=== PATIENT | male | born 1945 | race Caucasian/White ===

== ENCOUNTER 2020-11-24 12:33 | Outpatient (REF) | payer MEDICARE, SELFPAY ==
[2020-11-24 13:14] LABS: Hematocrit 46.7 % (42-52); Hemoglobin 15.1 g/dl (14.0-18.0); Mean Corpuscular HGB Conc 32.3 g/dl (31.0-36.0); Mean Corpuscular Hemoglobin 30.4 pg (27.0-33.0); Mean Corpuscular Volume 94.2 fL (80-98); Mean Platelet Volume 9.1 fL (9.4-12.4); Platelet Count 320 X10*3/uL (160-400); Red Blood Count 4.96 X10*6/uL (4.60-5.80); Red Cell Distribution Width 12.4 % (11.0-16.0); White Blood Count 10.6 X10*3/uL (4.8-10.8)
[2020-11-24 13:49] LABS: Alanine Aminotransferase 16 U/L (0-40); Alkaline Phosphatase 111 U/L (39-117); Anion Gap 15 (12-20); Aspartate Amino Transferase 20 U/L (5-37); Bilirubin Total 0.6 mg/dL (0.0-1.0); Blood Urea Nitrogen 24 mg/dL (9-16); Calcium 9.6 mg/dL (8.4-10.2); Carbon Dioxide 28 mmol/L (22-29); Chloride 105 mmol/L (96-108); Cholesterol 132 mg/dL; Estimated Glomerular Filt Rate 48; Glucose Random 124 mg/dL (60-115); HDL Cholesterol 29 mg/dL; LDL Cholesterol Calculated 45 mg/dl; Potassium 4.7 mmol/L (3.3-5.1); Sodium 143 mmol/L (135-145); Total Protein 7.1 g/dL (6.5-8.0); Triglycerides 292 mg/dL
== END 2020-11-24 12:34 | disposition home or self-care (01) ==
LOC: HO.LAB 12:33
PROVIDERS: PCP Internal Medicine Medical Oncology; Visit Provider Nurse Practitioner Adult Health
DX: I25.10 Atherosclerotic heart disease of native coronary artery without angina pectoris (principal); N18.30 Chronic kidney disease, stage 3 unspecified
CPT/HCPCS: 36415; 80053; 80061; 85027

== ENCOUNTER 2021-07-29 14:35 | Emergency (ER) | payer MEDICARE, SELFPAY ==
[2021-07-29 14:43] VITALS: BP 119/57; BP 135/78; PULSE 93; PULSE 99; RESP 20; TEMP 37; O2SAT 100; O2SAT 97; BMI 19.3
[2021-07-29 14:55] VITALS: BP 132/67; PULSE 97; RESP 18; TEMP 36.6; O2SAT 98
--- NOTE | 2021-07-29 15:06 | ED_ITS ---
HPI - Male Genitourinary General Chief complaint: Urogenital-Male Stated complaint: ?uti Time Seen by Provider: 07/29/21 14:58 Source: patient and EMS Mode of arrival: EMS Limitations: no limitations History of Present Illness HPI Narrative: 68-year-old male with a history of hypertension, hyperlipidemia, BPH, who presents to the ER from [facility] via EMS with acute onset of josh blood coming from his penis that started this morning. He denies any trauma. He states when he went to go urinate there was bright red blood coming from his penis and it hurt to urinate. He is not on any blood thinners, but he is on a baby aspirin. This is never happened to him before. He follows with urologist in [place]. He has required catheters in the past but denies any recent difficulty starting his stream or emptying his bladder. He fever or chills, no nausea or vomiting. MD Complaint: dysuria and other (Bleeding from penis) Onset (ago): hour(s) Duration: intermittent Location: penis Severity: moderate Quality: burning Relieving factors: none Exacerbating factors: none Associated symptoms: Reports blood in urine and dysuria Related Data Previous Rx's Medication Instructions Recorded cefuroxime axetil 250 mg tablet 250 mg PO BID 7 Days #14 tab 07/29/21 mupirocin 2 % topical ointment 1 appl TOPICAL BID #15 g 07/29/21 Allergies Allergy/AdvReac Type Severity Reaction Status Date / Time No Known Allergies Allergy Verified 07/29/21 14:57 Review of Systems Review of Systems: Constitutional: No Fever, No Chills ENT/Mouth: No sore throat, No Rhinorrhea, No Swallowing Difficulty Cardiovascular: No Chest Pain, No SOB, No Orthopnea, No Edema Respiratory: No Cough, No Sputum, No Wheezing, No dyspnea Gastrointestinal: No Nausea, No Vomiting, No Diarrhea, No abdominal Pain, No Hematochezia, No Melena Genitourinary: + Dysuria, No Urinary Frequency, + Hematuria, No testicular pain Musculoskeletal: No joint pain, No Myalgias Skin: No Skin Lesions, No rash Neuro: No Weakness, No Numbness, No Dizziness, No Headache Psych: No Anxiety/Panic, No Depression Heme/Lymph: No Bruising, No Lymphadenopathy Endocrine: No Polyuria, No Polydipsia PMFSH Social History Social History Alcohol intake: never Patient Tobacco Use Status: Never used Tobacco Use of substances other than those prescribed or required for medical reasons: No Advance Directives: No Advance Directives Information Provided: No Physical Exam Vital Signs: Vital Signs: Last Vital Signs Temp 98.6 F 07/29/21 17:49 Pulse 89 07/29/21 17:49 Resp 18 07/29/21 17:49 BP 119/63 07/29/21 17:49 Pulse Ox 98 07/29/21 17:49 Body Mass Index 19.3 Appearance: Alert. Oriented X3. No acute distress. Eyes: Pupils equal, round and reactive to light. ENT: Pharynx normal. Poor dentition Neck: Normal inspection. Neck supple. CVS: Normal heart rate and rhythm. Pulses normal. Respiratory: No respiratory distress. Breath sounds normal. Abdomen: Soft and nontender. +BS x4 Genitalia: dried blood on penile glans, yellow crusting of the base of the glans with friable tissue, circumsized with some swelling, blood expressed from meatus, no testicular tenderness, no palpable mass or hernia. Skin: Skin warm and dry. Normal skin color. Normal skin turgor. No rashes. Extremities: No lower extremity edema. Neuro: Oriented X 3. No motor deficit. No sensory deficit. Course Course Course Narrative: 68-year-old male with a history of HTN, HLD, BPH presenting from [facility] with report of new onset gross hematuria that started today. This is associated with dysuria. No fever, chills, nausea, vomiting. Will get urinalysis, labs, coags, and postvoid residual bladder scan. He is nontoxic and afebrile. Reevaluation(s) Reevaluation #1: Patient able to void with about 200 cc left in the bladder. He is on finasteride at baseline. His urine is red without clots. His H&H are normal with a normal INR and PT. his renal function is normal. His urinalysis is showing evidence of infection with hematuria. This is most likely the cause of his hematuria. Will give a dose of IV Rocephin now and plan to discharge home on oral antibiotics. H Reevaluation #2: Patient completed Rocephin and was given a L of IV fluids. Stable for discharge home with p.o. Ceftin for 1 week. He will follow-up with his outpatient urologist. MARY - Male Genitourinary Lab Data Result diagrams: 07/29/21 16:33 07/29/21 16:33 Labs: Lab Results 07/29/21 07/29/21 07/29/21 Range/Units 15:44 16:33 16:33 WBC 7.6 (4.8-10.8) X10*3/uL RBC 4.61 (4.60-5.80) X10*6/uL Hgb 14.2 (14.0-18.0) g/dl Hct 43.2 (42-52) % MCV 93.7 (80-98) fL MCH 30.8 (27.0-33.0) pg MCHC 32.9 (31.0-36.0) g/dl RDW 12.3 (11.0-16.0) % Plt Count 262 (160-400) X10*3/uL MPV 8.8 L (9.4-12.4) fL Immature Gran % (Auto) 0.2 (0.0-0.4) % Neut % (Auto) 78.4 H (45-73) % Lymph % (Auto) 11.2 L (20-40) % [place] % (Auto) 8.4 (2-11) % Eos % (Auto) 1.4 (0-4) % Baso % (Auto) 0.4 (0-2) % Lymph # (Auto) 0.9 L (1.2-4.9) X10*3/uL [place] # (Auto) 0.7 (0.1-1.2) X10*3/uL Eos # (Auto) 0.1 (0.0-0.4) X10*3/uL Baso # (Auto) 0.0 (0.0-0.2) X10*3/uL Abs Immat Gran (auto) 0.02 (0.00-0.03) X10*3/uL Absolute Neuts (auto) 6.3 (2.0-8.3) X10*3/uL Absolute Nucleated RBC 0.000 (0.0-0.012) X10*3/uL Nucleated RBC % (auto) 0.0 (0.0-0.2) /100WBC Smear Tech's Comments VERIFIED PT (9.9-13.0) SEC INR (0.9-1.1) APTT (24.1-38.0) SEC Sodium 144 (135-145) mmol/L Potassium 4.8 (3.3-5.1) mmol/L Chloride 110 H (96-108) mmol/L Carbon Dioxide 25 (22-29) mmol/L Anion Gap 14 (12-20) BUN 24 H (9-16) mg/dL Creatinine 1.35 (0.5-1.4) mg/dL Estim Creat Clear Calc 34.7 Estimated GFR 51 Random Glucose 104 (60-115) mg/dL Calcium 9.0 D (8.4-10.2) mg/dL Urine Color DK YELLOW Urine Appearance TURBID Urine pH 5.5 (5.0-8.0) Ur Specific [place] 1.025 (1.005-1.025) Urine Protein 1+ H (NEG-TRACE) MG/DL Urine Glucose (UA) NEG (NEG) MG/DL Urine Ketones NEG (NEG) MG/DL Urine Blood 3+ H (NEG) Urine Nitrite NEG (NEG) Ur Leukocyte Esterase 2+ H (NEG) Urine RBC TNTC H (0) /HPF Urine WBC 30-49 H (0-4) /HPF Ur Squamous Epith Cells TRACE /LPF Urine Bacteria TRACE /LPF 07/29/21 Range/Units 17:11 WBC (4.8-10.8) X10*3/uL RBC (4.60-5.80) X10*6/uL Hgb (14.0-18.0) g/dl Hct (42-52) % MCV (80-98) fL MCH (27.0-33.0) pg MCHC (31.0-36.0) g/dl RDW (11.0-16.0) % Plt Count (160-400) X10*3/uL MPV (9.4-12.4) fL Immature Gran % (Auto) (0.0-0.4) % Neut % (Auto) (45-73) % Lymph % (Auto) (20-40) % [place] % (Auto) (2-11) % Eos % (Auto) (0-4) % Baso % (Auto) (0-2) % Lymph # (Auto) (1.2-4.9) X10*3/uL [place] # (Auto) (0.1-1.2) X10*3/uL Eos # (Auto) (0.0-0.4) X10*3/uL Baso # (Auto) (0.0-0.2) X10*3/uL Abs Immat Gran (auto) (0.00-0.03) X10*3/uL Absolute Neuts (auto) (2.0-8.3) X10*3/uL Absolute Nucleated RBC (0.0-0.012) X10*3/uL Nucleated RBC % (auto) (0.0-0.2) /100WBC Smear Tech's Comments PT 12.5 (9.9-13.0) SEC INR 1.1 (0.9-1.1) APTT 39.9 H (24.1-38.0) SEC Sodium (135-145) mmol/L Potassium (3.3-5.1) mmol/L Chloride (96-108) mmol/L Carbon Dioxide (22-29) mmol/L Anion Gap (12-20) BUN (9-16) mg/dL Creatinine (0.5-1.4) mg/dL Estim Creat Clear Calc Estimated GFR Random Glucose (60-115) mg/dL Calcium (8.4-10.2) mg/dL Urine Color Urine Appearance Urine pH (5.0-8.0) Ur Specific [place] (1.005-1.025) Urine Protein (NEG-TRACE) MG/DL Urine Glucose (UA) (NEG) MG/DL Urine Ketones (NEG) MG/DL Urine Blood (NEG) Urine Nitrite (NEG) Ur Leukocyte Esterase (NEG) Urine RBC (0) /HPF Urine WBC (0-4) /HPF Ur Squamous Epith Cells /LPF Urine Bacteria /LPF Critical Care Time Critical Care Time Critical Care Time: No Discharge Plan Discharge Clinical Impression: Urinary tract infection, Hematuria Patient Disposition: Home, Self-Care Instructions: Urinary Tract Infection in Men (ED), Hematuria (ED) Additional Instructions: Your urinalysis showed evidence of bladder infection. That is what is causing the bleeding from her bladder and penis. This will improve with treatment of antibiotics. Your given her 1st dose of IV antibiotics in the ER today. Start taking the prescribed antibiotics 1st thing tomorrow morning. Increase her oral hydration, drink plenty of water. Follow-up with your urology doctor next week. If you develop new or worsening symptoms call 911 or come back to the ER for further evaluation. Prescriptions: New cefuroxime axetil 250 mg tablet 250 mg PO BID 7 Days Qty: 14 RF: 0 mupirocin 2 % ointment 1 appl topical BID Qty: 15 RF: 0
[2021-07-29 15:56] LABS: Appearance Urine TURBID; Color Urine DK YELLOW; Glucose Urine UA NEG (NEG); Leukocyte Esterase Urine 2+ (NEG); Nitrite Urine NEG (NEG); PH 5.5 (5.0-8.0); Specific Gravity - Urine 1.025 (1.005-1.025); UACC Culture Trigger YES; Urine Blood 3+ (NEG); Urine Ketones NEG (NEG); Urine Protein 1+ MG/DL (NEG-TRACE)
[2021-07-29 16:02] LABS: RBC Urine TNTC /HPF (0)
[2021-07-29 16:03] LABS: Bacteria Urine TRACE /LPF; Squamous Epithelial Cell Urine TRACE /LPF; WBC Urine 30-49 /HPF (0-4)
[2021-07-29 16:42] LABS: Basophils Percent Auto 0.4 % (0-2); Hematocrit 43.2 % (42-52); Hemoglobin 14.2 g/dl (14.0-18.0); Imm Gran Abs Auto 0.02 X10*3/uL (0.00-0.03); Imm Gran Pct Auto 0.2 % (0.0-0.4); MANUAL DIFF FLAG SCAN; Mean Corpuscular HGB Conc 32.9 g/dl (31.0-36.0); Mean Platelet Volume 8.8 fL (9.4-12.4); Neutrophils Absolute Auto 6.3 X10*3/uL (2.0-8.3); PLT CLUMP 1; SCAN SMEAR FLAG 1
[2021-07-29 16:44] LABS: Eosinophils Absolute Auto 0.1 X10*3/uL (0.0-0.4); Eosinophils Percent Auto 1.4 % (0-4); Lymphocytes Absolute Auto 0.9 X10*3/uL (1.2-4.9); Lymphocytes Percent Auto 11.2 % (20-40); Mean Corpuscular Hemoglobin 30.8 pg (27.0-33.0); Mean Corpuscular Volume 93.7 fL (80-98); Monocytes Absolute Auto 0.7 X10*3/uL (0.1-1.2); Monocytes Percent Auto 8.4 % (2-11); Neutrophils Percent Auto 78.4 % (45-73); Platelet Count 262 X10*3/uL (160-400); Red Blood Count 4.61 X10*6/uL (4.60-5.80); Red Cell Distribution Width 12.3 % (11.0-16.0)
[2021-07-29 16:59] LABS: Anion Gap 14 (12-20); Blood Urea Nitrogen 24 mg/dL (9-16); Carbon Dioxide 25 mmol/L (22-29); Chloride 110 mmol/L (96-108); Creatinine Clr Calc Pharmacy 34.7; Estimated Glomerular Filt Rate 51; Glucose Random 104 mg/dL (60-115); Potassium 4.8 mmol/L (3.3-5.1); Sodium 144 mmol/L (135-145)
[2021-07-29 17:07] LABS: White Blood Count 7.6 X10*3/uL (4.8-10.8)
[2021-07-29 17:08] LABS: SLIDE REVIEW VERIFIED
[2021-07-29] MEDS: 0.9 % Sodium Chloride 1,000 ML 999 ML IVCONT (17:23)
[2021-07-29] MEDS: cefTRIAXone sodium 1 GM in 0.9 % Sodium Chloride 50 ML IV (17:23)
[2021-07-29 17:24] LABS: INTERNATIONAL NORM RATIO 1.1 (0.9-1.1); Prothrombin Time 12.5 SEC (9.9-13.0)
[2021-07-29 17:26] LABS: Partial Thromboplastin Time 39.9 SEC (24.1-38.0)
[2021-07-29 17:49] VITALS: BP 119/63; PULSE 89; RESP 18; TEMP 37; O2SAT 98
== END 2021-07-29 19:00 | disposition home or self-care (01) ==
PROVIDERS: Physician Assistant; Emergency Provider Emergency Medicine; PCP Internal Medicine Medical Oncology
DX: N39.0 Urinary tract infection, site not specified (principal); R31.9 Hematuria, unspecified; Z79.899 Other long term (current) drug therapy
CPT/HCPCS: 36415; 80048; 81001; 85025; 85610; 85730; 87086; 87088; 87186; 96361; 96365; 99284; J0696

== ENCOUNTER 2023-04-09 19:49 | Emergency (ER) | payer MEDICARE, SELFPAY ==
[2023-04-09 19:52] VITALS: BP 128/84; PULSE 96; O2SAT 99
[2023-04-09 20:05] VITALS: BP 128/84; BP 170/86; PULSE 88; PULSE 96; RESP 13; TEMP 36.7; O2SAT 100; O2SAT 99; BMI 20.5
--- NOTE | 2023-04-09 20:27 | ED.EXTPRO ---
HPI - Extremity Problem General Chief complaint: Extremity Problem Stated complaint: leg pain/ numb Time Seen by Provider: 04/09/23 20:23 Source: patient Mode of arrival: EMS Limitations: no limitations History of Present Illness HPI Narrative: Patient 78 years old with history of hypertension hyperlipidemia BPH coronary disease status post CABG, peripheral vascular disease on aspirin comes here for right lower extremity pain which started an hour ago prior to arrival. Patient does have pain off and on her right lower extremity for last 1 year which gets worse on ambulation but resolves after resting and applying hot blanket. similar pain happened about 1 week ago but went away today at around 1900 patient walked out of the car walked back as started having pain in right leg which continued Memo came to the ER had difficulty in walking did not feel his right foot and felt weak. On arrival patient extremity was slightly colder and pale below mid [place] feels his right lower leg numb. Able to feel light touch able to move his foot but feel very weak Related Data Home Medications Medication Instructions Recorded Confirmed atorvastatin 80 mg tablet 80 mg PO DAILY 04/09/23 04/09/23 finasteride 5 mg tablet 5 mg PO DAILY 04/09/23 04/09/23 metoprolol succinate 100 mg 100 mg PO DAILY 04/09/23 04/09/23 tablet,extended release 24 hr Previous Rx's Medication Instructions Recorded cefuroxime axetil 250 mg tablet 250 mg PO BID 7 days #14 tabs 07/29/21 Allergies Allergy/AdvReac Type Severity Reaction Status Date / Time No Known Allergies Allergy Verified 07/29/21 14:57 Review of Systems Review of Systems: Yes all other systems are reviewed and are negative [facility] Social History Social History Alcohol intake: never Patient Tobacco Use Status: Never used Tobacco Smoked in Last 30 Days: No Use of substances other than those prescribed or required for medical reasons: No Advance Directives: No Advance Directives Information Provided: No Physical Exam Vital Signs: Vital Signs: Last Vital Signs Temp 98.1 F 04/09/23 20:05 Pulse 82 04/09/23 22:29 Resp 18 04/09/23 22:29 BP 143/73 H 04/09/23 22:29 Pulse Ox 98 04/09/23 22:29 O2 Del Method Room Air 04/09/23 20:05 BMI result Body Mass Index 20.5 Appearance: Alert. Oriented X3. No acute distress. Eyes: PERRLA, No Nystagmus ENT: Pharynx normal. Oral Mucosa moist Neck: Normal inspection. Neck supple. CVS: Normal heart rate and rhythm. No murmur or rub Respiratory: No respiratory distress. Equal air entry bilateral, no wheezing/rales/rhonchi Abdomen: Soft and nontender. Bowel sounds are present, no mass palpable, no CVA tenderness Skin: Skin warm and dry. Normal skin color. Normal skin turgor. Extremities: No lower extremity edema. No calf tenderness, right lower extremity pale and colder below mid [place] no pulse palpable from right common femoral all the way to popliteal able to plantar flex his right foot with minimal toe movements Neuro: Oriented X 3. Decrease movements and sensation right foot.No cerebellar signs , cranial nerves II-XII intact Medications Administered Discontinued Medications Generic Name Dose Route Start Last Admin Trade Name Freq PRN Reason Stop Dose Admin Heparin Sodium (Porcine) 4,500 unit 04/09/23 20:28 04/09/23 21:07 Heparin Sodium,Porcine 5,000 Unit/Ml Vial IVPUSH 04/09/23 20:29 4,500 unit ONCE ONE Administration Heparin Sodium/Sodium Chloride 25,000 unit in 250 mls @ 0 mls/hr 04/09/23 20:30 04/09/23 21:00 Heparin Sodium,Porcine/1/2ns IVCONT 14 units/kg/hr .Q0M ESTEE 8.05 mls/hr Administration Protocol Per Protocol Medical Decision Making Medical Decision Making [facility] Narrative: 2054 bedside arterial ultrasound was done which showed no blood flow from right common femoral artery, good blood flow in the iliac artery. Case discussed Dr. Iglesias vascular surgeon vascular services not available Dr Frazier vascular surgeon at [facility] accepted the patient for transfer to [facility] ER 22:20 EMS here to take the patient right leg is cold and pale from knee down. Able to dorsi and plantar flex Lab Data [facility] Lab Attestation statement: I reviewed the patient's lab results. 04/09/23 20:35 04/09/23 20:35 Labs: Lab Results 04/09/23 04/09/23 04/09/23 Range/Units 20:35 20:35 20:35 WBC 8.2 (4.8-10.8) X10*3/uL RBC 5.43 (4.60-5.80) X10*6/uL Hgb 15.6 (14.0-18.0) g/dl Hct 48.2 (42.0-52.0) % MCV 88.8 (80.0-98.0) fL MCH 28.7 (27.0-33.0) pg MCHC 32.4 (31.0-36.0) g/dl RDW 13.4 (11.0-16.0) % Plt Count 296 (160-400) X10*3/uL MPV 8.4 L (9.4-12.4) fL Immature Gran % (Auto) 0.2 (0.0-0.4) % Neut % (Auto) 85.3 H (45-73) % Lymph % (Auto) 7.7 L (20-40) % [place] % (Auto) 6.1 (2-11) % Eos % (Auto) 0.5 (0-4) % Baso % (Auto) 0.2 (0-2) % Lymph # (Auto) 0.6 L (1.2-4.9) X10*3/uL [place] # (Auto) 0.5 (0.1-1.2) X10*3/uL Eos # (Auto) 0.0 (0.0-0.4) X10*3/uL Baso # (Auto) 0.0 (0.0-0.2) X10*3/uL Abs Immat Gran (auto) 0.02 (0.00-0.03) X10*3/uL Absolute Neuts (auto) 7.0 (2.0-8.3) x10*3/uL Absolute Nucleated RBC 0.000 (0.0-0.012) X10*3/uL Nucleated RBC % (auto) 0.0 (0.0-0.2) /100WBC PT 11.5 (10.0-13.1) SEC INR 1.0 (0.9-1.1) APTT 37.9 H (26.0-36.4) SEC Sodium 140 (135-145) mmol/L Potassium 4.4 (3.3-5.1) mmol/L Chloride 104 (96-108) mmol/L Carbon Dioxide 24 (22-29) mmol/L Anion Gap 16 (12-20) BUN 21 H (9-16) mg/dL Creatinine 1.51 H (0.5-1.4) mg/dL Estim Creat Clear Calc 31.7 Estimated GFR 45 Random Glucose 129 H (60-115) mg/dL Calcium 9.9 D (8.4-10.2) mg/dL Total Bilirubin 0.4 (0.0-1.0) mg/dL AST 13 (5-37) U/L ALT 9 (0-40) U/L Alkaline Phosphatase 114 (39-117) U/L Total Protein 8.3 H (6.5-8.0) g/dL Albumin 4.1 (3.5-5.0) g/dL COVID-19 (LEIGHA) (Negative) COVID-19 Clin Com 04/09/23 Range/Units 21:15 WBC (4.8-10.8) X10*3/uL RBC (4.60-5.80) X10*6/uL Hgb (14.0-18.0) g/dl Hct (42.0-52.0) % MCV (80.0-98.0) fL MCH (27.0-33.0) pg MCHC (31.0-36.0) g/dl RDW (11.0-16.0) % Plt Count (160-400) X10*3/uL MPV (9.4-12.4) fL Immature Gran % (Auto) (0.0-0.4) % Neut % (Auto) (45-73) % Lymph % (Auto) (20-40) % [place] % (Auto) (2-11) % Eos % (Auto) (0-4) % Baso % (Auto) (0-2) % Lymph # (Auto) (1.2-4.9) X10*3/uL [place] # (Auto) (0.1-1.2) X10*3/uL Eos # (Auto) (0.0-0.4) X10*3/uL Baso # (Auto) (0.0-0.2) X10*3/uL Abs Immat Gran (auto) (0.00-0.03) X10*3/uL Absolute Neuts (auto) (2.0-8.3) x10*3/uL Absolute Nucleated RBC (0.0-0.012) X10*3/uL Nucleated RBC % (auto) (0.0-0.2) /100WBC PT (10.0-13.1) SEC INR (0.9-1.1) APTT (26.0-36.4) SEC Sodium (135-145) mmol/L Potassium (3.3-5.1) mmol/L Chloride (96-108) mmol/L Carbon Dioxide (22-29) mmol/L Anion Gap (12-20) BUN (9-16) mg/dL Creatinine (0.5-1.4) mg/dL Estim Creat Clear Calc Estimated GFR Random Glucose (60-115) mg/dL Calcium (8.4-10.2) mg/dL Total Bilirubin (0.0-1.0) mg/dL AST (5-37) U/L ALT (0-40) U/L Alkaline Phosphatase (39-117) U/L Total Protein (6.5-8.0) g/dL Albumin (3.5-5.0) g/dL COVID-19 (LEIGHA) Negative (Negative) COVID-19 Clin Com See Note Critical Care Time Critical Care Time Critical Care Time: Yes Total Critical Care Time: 65 Attestation: The patient was critically ill with a high probability of imminent or life threatening deterioration. I spent greater than 70 minutes of discontinuous time evaluating the patient,delivering critical care at the bedside, discussing and evaluating pertinent data with consultants. Critical care time does not include time spent performing separately billable procedures or teaching. Total time spent performing critical care was 65 minutes. Discharge Plan Discharge Clinical Impression: Acute occlusion of artery of lower extremity Patient Disposition: Xfer [facility] Transfer Details: Acute right common femoral artery occlusion Dr. Frazier [facility] ER Prescriptions: No Action cefuroxime axetil 250 mg tablet 250 mg PO BID 7 Days Qty: 14 0RF atorvastatin 80 mg tablet 80 mg PO DAILY metoprolol succinate 100 mg tablet extended release 24 hr 100 mg PO DAILY finasteride 5 mg tablet 5 mg PO DAILY Interventions: Acute Care Transfer Worksheet (ED) Last Done: 04/09/23 22:30 Discharge Date/Time: 04/09/23 22:31
--- NOTE | 2023-04-09 21:42 | PC.NURSE ---
Contacted [facility], spoke with [facility] nurse. informed of plan to send pt to [facility].
--- NOTE | 2023-04-09 21:50 | PC.NURSE ---
Assumed care of pt approx 1999. on arrival, pt transfered to [facility] by EMS without complications. pt sts has been having intermittent bilat leg pain x 1 year, with previous history 6 years ago of cleanout of my legs , with no risidual leg pain or issues until last year. Pt has been elevating limb, applying heat with relief when pain ocurrs, however states he ambulated to car to start it and had increased pain today. Pt ss went back inside to elevate leg and apply heat, but with no relief. Called 911 to come in. On assessment, RLL cool to touch from knee down, no pedal pulses felt or ascultated with doppler on R, + on L. Pt unable to move toes, does have reduced muscular ability with R foot. MD notified for assesment. IV established, orders placed for labs. Imaging noted lack of aterial flow on R femoral artery, Heparin started, plan to transfer pt to [facility]. Pt remains lying on stretcher, c/o tk nto RLE, no other complaints at this time.
[2023-04-09 22:29] VITALS: BP 143/73; PULSE 82; RESP 18; O2SAT 98
== END 2023-04-09 22:31 | disposition short-term general hospital (02) ==
PROVIDERS: Emergency Provider Internal Medicine
DX: I74.3 Embolism and thrombosis of arteries of the lower extremities (principal); M79.604 Pain in right leg; Z20.822 Contact with and (suspected) exposure to COVID-19; I10 Essential (primary) hypertension; E78.5 Hyperlipidemia, unspecified; Z95.1 Presence of aortocoronary bypass graft; Z79.899 Other long term (current) drug therapy
CPT/HCPCS: 36415; 80053; 85025; 85610; 85730; 87635; 93926; 96365; 96375; 99285; J1643

== ENCOUNTER 2023-06-20 10:40 | Outpatient (REF) | payer MEDICARE, SELFPAY ==
[2023-06-20 13:18] LABS: MANUAL DIFF FLAG NO
[2023-06-20 13:22] LABS: Basophils Percent Auto 0.3 % (0-2); Eosinophils Absolute Auto 0.1 X10*3/uL (0.0-0.4); Eosinophils Percent Auto 2.1 % (0-4); Hematocrit 38.3 % (42.0-52.0); Hemoglobin 11.9 g/dl (14.0-18.0); Imm Gran Abs Auto 0.02 X10*3/uL (0.00-0.03); Imm Gran Pct Auto 0.3 % (0.0-0.4); Lymphocytes Percent Auto 15.7 % (20-40); Mean Corpuscular HGB Conc 31.1 g/dl (31.0-36.0); Mean Corpuscular Volume 93.4 fL (80.0-98.0); Mean Platelet Volume 8.9 fL (9.4-12.4); Monocytes Absolute Auto 0.4 X10*3/uL (0.1-1.2); Neutrophils Percent Auto 75.6 % (45-73); Platelet Count 339 X10*3/uL (160-400); Red Cell Distribution Width 13.7 % (11.0-16.0); White Blood Count 6.6 X10*3/uL (4.8-10.8)
[2023-06-20 14:04] LABS: Alanine Aminotransferase 11 U/L (0-40); Albumin Level 3.4 g/dL (3.5-5.0); Alkaline Phosphatase 87 U/L (39-117); Anion Gap 11 (12-20); Aspartate Amino Transferase 22 U/L (5-37); Bilirubin Total 0.2 mg/dL (0.0-1.0); Blood Urea Nitrogen 23 mg/dL (9-16); Calcium 9.2 mg/dL (8.4-10.2); Carbon Dioxide 26 mmol/L (22-29); Chloride 108 mmol/L (96-108); Cholesterol 104 mg/dL (<200); Estimated Glomerular Filt Rate > 60; Glucose Random 105 mg/dL (60-115); HDL Cholesterol 28 mg/dL (>40); LDL Cholesterol Calculated 42 mg/dL (<100); Potassium 4.5 mmol/L (3.3-5.1); Sodium 140 mmol/L (135-145); Total Protein 6.8 g/dL (6.5-8.0); Triglycerides 174 mg/dL (<150)
[2023-06-20 14:26] LABS: Prostate Specific Antigen Scr 5.13 ng/mL (<0.05-4.0)
== END 2023-06-20 10:41 | disposition home or self-care (01) ==
LOC: HO.10HDL 10:40
PROVIDERS: Visit Provider Internal Medicine
DX: Z12.5 Encounter for screening for malignant neoplasm of prostate (principal); E78.00 Pure hypercholesterolemia, unspecified; I10 Essential (primary) hypertension; I25.810 Atherosclerosis of coronary artery bypass graft(s) without angina pectoris; I73.9 Peripheral vascular disease, unspecified; N40.0 Benign prostatic hyperplasia without lower urinary tract symptoms
CPT/HCPCS: 36415; 80053; 80061; 84153; 85025

== ENCOUNTER 2023-08-16 08:31 | Outpatient (RCR) | payer MEDICARE, SELFPAY | END 2023-11-12 17:00 | disposition home or self-care (01) | LOC: HO.WCC 08:31 | PROVIDERS: PCP Nurse Practitioner Family; Visit Provider Surgery | DX: Z09 Encounter for follow-up examination after completed treatment for conditions other than malignant neoplasm (principal); I87.301 Chronic venous hypertension (idiopathic) without complications of right lower extremity; I10 Essential (primary) hypertension; I73.9 Peripheral vascular disease, unspecified; I25.2 Old myocardial infarction; Z95.1 Presence of aortocoronary bypass graft; Z87.2 Personal history of diseases of the skin and subcutaneous tissue | CPT/HCPCS: 11042; 11043; 97597; 99212 ==

== ENCOUNTER 2023-12-04 10:44 | Inpatient (IN) | payer MEDICARE, SELFPAY ==
[2023-12-04] VITALS (10 sets, daily range): BP systolic 87–112; BP diastolic 42–60; PULSE 70–92; RESP 12–19; TEMP 36.6–36.8; O2SAT 95–99; BMI 20.2
--- NOTE | ~2023-12-04 | CT_ITS ---
EXAMINATION: CT ABDOMEN AND PELVIS WITHOUT CONTRAST CLINICAL INFORMATION: Urinary retention. COMPARISON: None available. TECHNIQUE: Multidetector volumetric imaging was performed from the superior aspect of the liver through the pubic symphysis. Sagittal and coronal reformatted images were obtained on the technologist's workstation. This CT examination was performed using dose optimization techniques as appropriate, variously including the following: *Automated exposure control *Adjustment of mA and/or kV according to patient size (this includes techniques or standardized protocols for targeted exams where dose is matched to indication/reason for exam; i.e. extremities or head) *Use of iterative reconstruction technique DLP: 333 mGy-cm FINDINGS: LUNG BASES: Mild by basilar dependent fibrotic changes with associated mild traction bronchiectasis. No effusion. Heart normal in size. Suspect decreased blood pool density, suggesting anemia. LIVER, GALLBLADDER, AND BILIARY TREE: At least 5, approximately 3.5 cm or less, round, homogeneous, hypodense hepatic lesions, incompletely characterized on the current noncontrast study alone. In the absence of known or suspected malignancy elsewhere, these likely represent benign entities, such as simple cysts and/or hemangiomata. The liver otherwise appears unremarkable in size, shape, and attenuation. No particularly suspicious focal hepatic lesion or biliary ductal dilatation is appreciated. Cholelithiasis. No evidence of gallbladder wall thickening or pericholecystic inflammatory change. PANCREAS: Unremarkable SPLEEN: Unremarkable ADRENAL GLANDS: Unremarkable KIDNEYS AND URETERS: Right renal staghorn calculi measuring up to approximately 2.8 cm in maximal dimension. Right renal parenchymal atrophy and scarring. Approximately 0.8 cm right ureteral stone (image 48, coronal series 6). No definite hydronephrosis on the right. Approximately 5 cm, round, thin-walled, homogeneous, exophytic right lower pole renal lesion measuring approximately 8 Hounsfield units in density, not otherwise characterized on this noncontrast CT scan. No evidence of stone or hydronephrosis on the left. The finding likely represents a benign cyst, not fully characterized. No further workup is indicated. Otherwise unremarkable appearance of the left renal parenchyma. BLADDER: Guerrero catheter balloon and tip lie within the lumen of the urinary bladder. Diffuse thickening of the wall the urinary bladder. Question mild induration of surrounding fat. GASTROINTESTINAL TRACT/MESENTERY: The small and large bowel appear unremarkable. Mild, nonspecific edmundo mesentery. ABDOMINAL WALL: Right groin surgical clips. Approximately 1 cm umbilical hernia containing only fat. LYMPH NODES: No evidence of adenopathy by size criteria. VASCULAR: Unremarkable PELVIC VISCERA: Enlarged prostate measuring approximately 6.2 x 5.8 x 4.8 cm. OSSEOUS STRUCTURES: Bilateral transpedicular screws, rods, disc spacing devices at L4-S1 with associated laminectomy. No evidence of hardware fracture or loosening. Grade 1 anterolisthesis of L5 on S1. Moderate disc degenerative change at L3-L4. Partially imaged median sternotomy wires. Mild osteoarthritis of the hips. CT/CT abdomen pelvis wo IV con IMPRESSION: Right renal staghorn calculi measuring up to approximately 2.8 cm in maximal dimension. Right renal parenchymal atrophy and scarring. Approximately 0.8 cm right ureteral stone. No definite hydronephrosis on the right. Enlarged prostate. Guerrero catheter balloon and tip lie within the lumen of the urinary bladder. Diffuse thickening of the wall the urinary bladder. Question mild induration of surrounding fat. Multiple additional findings, as above.
--- NOTE | 2023-12-04 10:59 | ED.GENADULT ---
HPI - General Adult General Chief complaint: Urogenital-Male Stated complaint: DARK URINE,PAIN W/URINATION FROM [facility] PER EMS Time Seen by Provider: 12/04/23 10:58 Source: patient and EMS Mode of arrival: EMS Limitations: other (Poor historian) History of Present Illness HPI narrative: This is an 78-year-old male coming from assisted living facility history of hypertension, hyperlipidemia, BPH presenting to the emergency department with complaints fatigue, malaise, myalgias, urinary frequency, urgency for the past few days worsening. History of UTIs and this feels like his typical UTI. Denies flank pain, abdominal pain, nausea, vomiting, abdominal pain, headache, vision changes, dizziness, chest pain and shortness of breath. Related Data Home Medications Medication Instructions Recorded Confirmed atorvastatin 80 mg tablet 80 mg PO DAILY 04/09/23 04/09/23 finasteride 5 mg tablet 5 mg PO DAILY 04/09/23 04/09/23 metoprolol succinate 100 mg 100 mg PO DAILY 04/09/23 04/09/23 tablet,extended release 24 hr Previous Rx's Medication Instructions Recorded cefuroxime axetil 250 mg tablet 250 mg PO BID 7 days #14 tabs 07/29/21 Allergies Allergy/AdvReac Type Severity Reaction Status Date / Time No Known Allergies Allergy Verified 07/29/21 14:57 Review of Systems Review of Systems: Yes all other systems are reviewed and are negative PMFSH Past Medical History Attestation statement: The following information was validated with the patient. Source: old records reviewed and nursing notes reviewed Social History Social History Alcohol intake: never Patient Tobacco Use Status: Never used Tobacco Smoked in Last 30 Days: No Use of substances other than those prescribed or required for medical reasons: No Advance Directives: No Advance Directives Information Provided: Yes Physical Exam ED Vital Signs: Vital Signs - 24 hr 12/04/23 11:04 12/04/23 11:54 12/04/23 13:15 Temperature 98.2 F Pulse Rate 91 84 90 Respiratory Rate 18 16 12 Blood Pressure 90/46 L 87/45 L 97/53 L Pulse Oximetry 98 95 97 Oxygen Delivery Method Room Air Room Air Room Air 12/04/23 13:26 12/04/23 13:53 12/04/23 14:16 Temperature 97.9 F Pulse Rate 89 92 84 Respiratory Rate 19 15 19 Blood Pressure 102/59 L 102/50 L 94/51 L Pulse Oximetry 97 98 Oxygen Delivery Method Room Air Room Air BMI result Body Mass Index 20.2 vss Appearance: Alert.? Oriented X3.? No acute distress.? Head: Normocephalic, atraumatic, no step-offs or deformities Eyes: Pupils equal, round and reactive to light.? ENT: Pharynx normal.? Neck: Normal inspection.? Neck supple.? CVS: Normal heart rate and rhythm.? Pulses normal.? Respiratory: No respiratory distress.? Breath sounds normal.? Abdomen: Soft and nontender.? Skin: Skin warm and dry.? Normal skin color.? Normal skin turgor.? Extremities: No lower extremity edema.? No calf ttp. Global weakness Neuro: Oriented X 3.? No motor deficit.? No sensory deficit. CN 2-12 intact Course Reevaluation(s) Reevaluation #1: CBC with leukocytosis and left shift. Chemistry pending. Lactic acid pending At this time infection suspected. Blood cultures, lactic acid have been drawn in ordered. Will order antibiotics and fluids at this time. Sepsis focused exam done on initial arrival. Time: 11:41 Reevaluation #2: Chemistry with elevated BUN and creatinine slightly higher than baseline likely secondary to poor p.o. intake/dehydration. IV fluids ordered. Urine still pending. Straight cath ordered. Attending Dr. Barrera placed a wood cath into this patient. Brown urine. Time: 13:16 Medications Administered Discontinued Medications Generic Name Dose Route Start Last Admin Trade Name Rejiq PRN Reason Stop Dose Admin Ceftriaxone Sodium 1 gm/ 50 mls @ 100 mls/hr 12/04/23 11:39 12/04/23 12:42 Sodium Chloride IV 12/04/23 12:08 Infused ONCE ONE Infusion Sodium Chloride 1,500 mls @ 1,500 mls/hr 12/04/23 11:39 12/04/23 13:26 Ns 30 ml/kg infuse over 1 hr (1500 ml) 12/04/23 12:38 Infused IV Infusion .Q1H STA Lidocaine HCl 10 ml 12/04/23 13:59 12/04/23 14:33 Lidocaine Hcl 2 % Urojet 10 Ml Jel.Pf.Shey TOPICAL 12/04/23 14:00 10 ml ONCE ONE Administration Medical Decision Making Medical Decision Making [facility] Narrative: 78-year-old male presents with concerns of dark urine and pain with urination coming from assisted living facility Physical exam benign History and physical exam concerning for possible UTI versus cyst this. Unlikely pyelo, acute abdomen, obstructing uropathy. No signs of systemic illness. Plan at this time labs, urine. Differential Diagnosis Differential Diagnoses: The differential diagnosis associated with the presentation includes History and physical exam concerning for possible UTI versus cyst this. Unlikely pyelo, acute abdomen, obstructing uropathy. No signs of systemic illness. Admission/Observation Consideration of admission/observation: Escalation of care including admission/observation considered Possible Lab Data [facility] Lab Attestation statement: I reviewed the patient's lab results. 12/04/23 11:17 12/04/23 12:36 Labs: Lab Results 12/04/23 12/04/23 12/04/23 Range/Units 11:17 12:36 14:19 WBC 19.6 H (4.8-10.8) X10*3/uL RBC 4.17 L (4.60-5.80) X10*6/uL Hgb 12.4 L (14.0-18.0) g/dl Hct 39.0 L (42.0-52.0) % MCV 93.5 (80.0-98.0) fL MCH 29.7 (27.0-33.0) pg MCHC 31.8 (31.0-36.0) g/dl RDW 13.4 (11.0-16.0) % Plt Count 237 D (160-400) X10*3/uL MPV 9.4 (9.4-12.4) fL Immature Gran % (Auto) 1.3 H (0.0-0.4) % Neut % (Auto) 87.8 H (45-73) % Lymph % (Auto) 5.1 L (20-40) % [place] % (Auto) 5.4 (2-11) % Eos % (Auto) 0.1 (0-4) % Baso % (Auto) 0.3 (0-2) % Lymph # (Auto) 1.0 L (1.2-4.9) X10*3/uL [place] # (Auto) 1.1 (0.1-1.2) X10*3/uL Eos # (Auto) 0.0 (0.0-0.4) X10*3/uL Baso # (Auto) 0.1 (0.0-0.2) X10*3/uL Abs Immat Gran (auto) 0.26 H (0.00-0.03) X10*3/uL Absolute Neuts (auto) 17.2 H (2.0-8.3) x10*3/uL Absolute Nucleated RBC 0.000 (0.0-0.012) X10*3/uL Nucleated RBC % (auto) 0.0 (0.0-0.2) /100WBC Sodium 144 (135-145) mmol/L Potassium 3.5 (3.3-5.1) mmol/L Chloride 114 H (96-108) mmol/L Carbon Dioxide 24 (22-29) mmol/L Anion Gap 10 L (12-20) BUN 52 H (9-16) mg/dL Creatinine 1.82 H (0.5-1.4) mg/dL Estim Creat Clear Calc 22.8 Estimated GFR 36 Random Glucose 130 H (60-115) mg/dL Lactic Acid 1.7 (0.5-2.0) mmol/L Calcium 8.5 D (8.4-10.2) mg/dL Magnesium 2.2 (1.6-2.6) mg/dL Total Bilirubin 0.2 (0.0-1.0) mg/dL AST 19 (5-37) U/L ALT 14 (0-40) U/L Alkaline Phosphatase 85 (39-117) U/L Total Creatine Kinase 70 (38-174) U/L Total Protein 5.9 L (6.5-8.0) g/dL Albumin 2.7 L (3.5-5.0) g/dL Urine Color Dark Yellow Urine Appearance Turbid Urine pH 6.0 (5.0-9.0) Ur Specific [place] 1.020 (1.005-1.025) Urine Protein 100 (2+) H (Neg-Trace) mg/dL Urine Glucose (UA) Negative (Negative) mg/dL Urine Ketones Negative (Negative) mg/dL Urine Blood Large (3+) H (Negative) Urine Nitrite Negative (Negative) Ur Leukocyte Esterase Large (3+) H (Negative) Urine RBC >20 H (0-2) /HPF Urine WBC >50 H (0-5) /HPF Ur Squamous Epith Cells 0-2 (0-2) /HPF Urine Bacteria 4+ (None Seen) Hyaline Casts 0-2 (0-2) /LPF External Record Review External record reviewed: Inpatient record, Office record, Outpatient record, Prior outpatient labs, Prior outpatient radiology, Primary care record and Outside ED record Prescription Management I considered prescription management with: Antibiotic Critical Care Time Critical Care Time Critical Care Time: Yes Total Critical Care Time: 45 Attestation: I attest to this time spent taking care of the patient, obtaining history, physical, reviewing labs, imaging, speaking to my attending, speaking to specialist. Discharge Plan Discharge Clinical Impression: Urinary tract infection Patient Disposition: Admitted As Inpatient
[2023-12-04 11:22] LABS: MANUAL DIFF FLAG NO
[2023-12-04 11:28] LABS: Basophils Absolute Auto 0.1 X10*3/uL (0.0-0.2); Basophils Percent Auto 0.3 % (0-2); Eosinophils Percent Auto 0.1 % (0-4); Hemoglobin 12.4 g/dl (14.0-18.0); Imm Gran Abs Auto 0.26 X10*3/uL (0.00-0.03); Imm Gran Pct Auto 1.3 % (0.0-0.4); Lymphocytes Percent Auto 5.1 % (20-40); Mean Corpuscular HGB Conc 31.8 g/dl (31.0-36.0); Mean Corpuscular Hemoglobin 29.7 pg (27.0-33.0); Mean Corpuscular Volume 93.5 fL (80.0-98.0); Mean Platelet Volume 9.4 fL (9.4-12.4); Monocytes Absolute Auto 1.1 X10*3/uL (0.1-1.2); Monocytes Percent Auto 5.4 % (2-11); Neutrophils Absolute Auto 17.2 x10*3/uL (2.0-8.3); Neutrophils Percent Auto 87.8 % (45-73); Platelet Count 237 X10*3/uL (160-400); Red Blood Count 4.17 X10*6/uL (4.60-5.80); Red Cell Distribution Width 13.4 % (11.0-16.0); White Blood Count 19.6 X10*3/uL (4.8-10.8)
[2023-12-04 11:39] LABS: Lactic Acid 1.7 mmol/L (0.5-2.0)
[2023-12-04] MEDS: 0.9 % Sodium Chloride 1,500 ML 1500 ML IV (11:53)
[2023-12-04] MEDS: cefTRIAXone sodium 1 GM in 0.9 % Sodium Chloride 50 ML IV (11:53)
[2023-12-04 12:56] LABS: Anion Gap 10 (12-20)
[2023-12-04 13:01] LABS: Alanine Aminotransferase 14 U/L (0-40); Albumin Level 2.7 g/dL (3.5-5.0); Alkaline Phosphatase 85 U/L (39-117); Aspartate Amino Transferase 19 U/L (5-37); Bilirubin Total 0.2 mg/dL (0.0-1.0); Blood Urea Nitrogen 52 mg/dL (9-16); Calcium 8.5 mg/dL (8.4-10.2); Carbon Dioxide 24 mmol/L (22-29); Chloride 114 mmol/L (96-108); Creatinine Clr Calc Pharmacy 22.8; Estimated Glomerular Filt Rate 36; Glucose Random 130 mg/dL (60-115); Magnesium 2.2 mg/dL (1.6-2.6); Potassium 3.5 mmol/L (3.3-5.1); Sodium 144 mmol/L (135-145); Total Protein 5.9 g/dL (6.5-8.0)
[2023-12-04 14:30] LABS: Appearance Urine Turbid; Color Urine Dark Yellow; Glucose Urine UA Negative (Negative); Leukocyte Esterase Urine Large (3+) (Negative); Nitrite Urine Negative (Negative); UMIC TRIGGER UACC YES; Urine Blood Large (3+) (Negative); Urine Ketones Negative (Negative); Urine Protein 100 (2+) mg/dL (Neg-Trace)
[2023-12-04 14:33] LABS: Bacteria Urine 4+ (None Seen); Hyaline Casts Urine 0-2 /LPF (0-2); RBC Urine >20 /HPF (0-2); Squamous Epithelial Cell Urine 0-2 /HPF (0-2); UACC Culture Trigger YES; WBC Urine >50 /HPF (0-5)
[2023-12-04] MEDS: Lidocaine HCl 2 % Urojet 10 ML JEL.PF.APP TOPICAL (14:33)
--- NOTE | 2023-12-04 14:38 | PC.NURSE ---
14F wood cath placed by MD noriega
--- NOTE | 2023-12-04 15:27 | ED.MALEGU ---
HPI - Male Genitourinary General Chief complaint: Urogenital-Male Stated complaint: DARK URINE,PAIN W/URINATION FROM SNF PER EMS Time Seen by Provider: 12/04/23 10:58 Source: patient and EMS Mode of arrival: EMS Limitations: other (Poor historian) Related Data Home Medications Medication Instructions Recorded Confirmed atorvastatin 80 mg tablet 80 mg PO BEDTIME 04/09/23 12/04/23 finasteride 5 mg tablet 5 mg PO DAILY 04/09/23 12/04/23 metoprolol succinate 100 mg 100 mg PO DAILY 04/09/23 12/04/23 tablet,extended release 24 hr apixaban 5 mg tablet (Eliquis) 5 mg PO BID 12/04/23 12/04/23 Previous Rx's Medication Instructions Recorded cefuroxime axetil 250 mg tablet 250 mg PO BID 7 days #14 tabs 07/29/21 Allergies Allergy/AdvReac Type Severity Reaction Status Date / Time No Known Allergies Allergy Verified 07/29/21 14:57 [facility] Social History Social History Alcohol intake: never Patient Tobacco Use Status: Never used Tobacco Smoked in Last 30 Days: No Use of substances other than those prescribed or required for medical reasons: No Advance Directives: No Advance Directives Information Provided: Yes Physical Exam Vital Signs: Vital Signs: Last Vital Signs Temp 97.8 F 12/04/23 15:31 Pulse 87 12/04/23 15:31 Resp 16 12/04/23 15:31 BP 96/42 L 12/04/23 15:31 Pulse Ox 97 12/04/23 15:31 O2 Del Method Room Air 12/04/23 15:31 BMI result Body Mass Index 20.2 Medications Administered Discontinued Medications Generic Name Dose Route Start Last Admin Trade Name Freq PRN Reason Stop Dose Admin Ceftriaxone Sodium 1 gm/ 50 mls @ 100 mls/hr 12/04/23 11:39 12/04/23 12:42 Sodium Chloride IV 12/04/23 12:08 Infused ONCE ONE Infusion Sodium Chloride 1,500 mls @ 1,500 mls/hr 12/04/23 11:39 12/04/23 13:26 Ns 30 ml/kg infuse over 1 hr (1500 ml) 12/04/23 12:38 Infused IV Infusion .Q1H STA Lidocaine HCl 10 ml 12/04/23 13:59 12/04/23 14:33 Lidocaine Hcl 2 % Urojet 10 Ml Jel.Pf.Shey TOPICAL 12/04/23 14:00 10 ml ONCE ONE Administration Medical Decision Making Lab Data 12/04/23 11:17 12/04/23 12:36 Labs: Lab Results 12/04/23 12/04/23 12/04/23 Range/Units 11:17 12:36 14:19 WBC 19.6 H (4.8-10.8) X10*3/uL RBC 4.17 L (4.60-5.80) X10*6/uL Hgb 12.4 L (14.0-18.0) g/dl Hct 39.0 L (42.0-52.0) % MCV 93.5 (80.0-98.0) fL MCH 29.7 (27.0-33.0) pg MCHC 31.8 (31.0-36.0) g/dl RDW 13.4 (11.0-16.0) % Plt Count 237 D (160-400) X10*3/uL MPV 9.4 (9.4-12.4) fL Immature Gran % (Auto) 1.3 H (0.0-0.4) % Neut % (Auto) 87.8 H (45-73) % Lymph % (Auto) 5.1 L (20-40) % [place] % (Auto) 5.4 (2-11) % Eos % (Auto) 0.1 (0-4) % Baso % (Auto) 0.3 (0-2) % Lymph # (Auto) 1.0 L (1.2-4.9) X10*3/uL [place] # (Auto) 1.1 (0.1-1.2) X10*3/uL Eos # (Auto) 0.0 (0.0-0.4) X10*3/uL Baso # (Auto) 0.1 (0.0-0.2) X10*3/uL Abs Immat Gran (auto) 0.26 H (0.00-0.03) X10*3/uL Absolute Neuts (auto) 17.2 H (2.0-8.3) x10*3/uL Absolute Nucleated RBC 0.000 (0.0-0.012) X10*3/uL Nucleated RBC % (auto) 0.0 (0.0-0.2) /100WBC Sodium 144 (135-145) mmol/L Potassium 3.5 (3.3-5.1) mmol/L Chloride 114 H (96-108) mmol/L Carbon Dioxide 24 (22-29) mmol/L Anion Gap 10 L (12-20) BUN 52 H (9-16) mg/dL Creatinine 1.82 H (0.5-1.4) mg/dL Estim Creat Clear Calc 22.8 Estimated GFR 36 Random Glucose 130 H (60-115) mg/dL Lactic Acid 1.7 (0.5-2.0) mmol/L Calcium 8.5 D (8.4-10.2) mg/dL Magnesium 2.2 (1.6-2.6) mg/dL Total Bilirubin 0.2 (0.0-1.0) mg/dL AST 19 (5-37) U/L ALT 14 (0-40) U/L Alkaline Phosphatase 85 (39-117) U/L Total Creatine Kinase 70 (38-174) U/L Total Protein 5.9 L (6.5-8.0) g/dL Albumin 2.7 L (3.5-5.0) g/dL Urine Color Dark Yellow Urine Appearance Turbid Urine pH 6.0 (5.0-9.0) Ur Specific [place] 1.020 (1.005-1.025) Urine Protein 100 (2+) H (Neg-Trace) mg/dL Urine Glucose (UA) Negative (Negative) mg/dL Urine Ketones Negative (Negative) mg/dL Urine Blood Large (3+) H (Negative) Urine Nitrite Negative (Negative) Ur Leukocyte Esterase Large (3+) H (Negative) Urine RBC >20 H (0-2) /HPF Urine WBC >50 H (0-5) /HPF Ur Squamous Epith Cells 0-2 (0-2) /HPF Urine Bacteria 4+ (None Seen) Hyaline Casts 0-2 (0-2) /LPF Discharge Plan Discharge Clinical Impression: Urinary tract infection Patient Disposition: Admitted As Inpatient
--- NOTE | 2023-12-04 15:33 | MHC.EDTECH ---
THIS PCT ASSUMED CARE OF PATIENT AT 1500 ,VITALS TAKEN ,PATIENT BELONGING LIST DONE ,PATIENT WAS REPOSITION AND BOOSTED UP IN BED ,PATIENT COMFORTABLE AT THIS TIME RESTING,CALL EDWARDS WITHIN PATIENT REACH .
--- NOTE | 2023-12-04 15:36 | PM.IMHP ---
History of Present Illness Date of Service: 12/04/23 Chief Complaint: malaise, urinary frequency, chills The patient is an 78-year-old male with a history of PAD/claudication and SFA complete occlusion, which necessitated a right femoral cutdown and embolectomy in April 2023. He also has a medical history of hypertension (HTN), benign prostatic hyperplasia (BPH), hyperlipidemia (HLD), and is currently residing in [facility]. He presented with symptoms including dark urine, feeling unwell, chills, and urinary frequency, stating, I have had this before. Record show that he was given cefuroxime on outpatient basis. Evaluation in the emergency department revealed a gross urinary tract infection (UTI) and an episode of hypotension, for which he received a sepsis bolus. He also has acute kidney injury (STEPHANE) on chronic kidney disease (CKD). Lactic acid levels are normal, and his white blood cell count (WBC) is elevated at 19 K. At one point, his systolic blood pressure (SBP) was 87 but has since risen above 90 with intravenous fluids (IVF). There is no fever or flank tenderness. A CT scan of the abdomen and pelvis is pending. Review of Systems Review of Systems: Gen: no fever, +chills and not feeling well. Resp: no sob, no cough CV: no chest, no BRYANT, no leg edema GI: No n/v, no abd pain, no flank pain Neuro: No confusion Yes all other systems are reviewed and are negative [facility] Medical History (Updated 12/04/23 @ 16:08 by Perry Ward MD) PAD (peripheral artery disease) BPH (benign prostatic hyperplasia) HLD (hyperlipidemia) HTN (hypertension) Social History Alcohol intake: never Patient Tobacco Use Status: Never used Tobacco Smoked in Last 30 Days: No Use of substances other than those prescribed or required for medical reasons: No Advance Directives: No Advance Directives Information Provided: Yes Nutrition Risks: No Nutritional Risk Meds Allergies Allergy/AdvReac Type Severity Reaction Status Date / Time No Known Allergies Allergy Verified 07/29/21 14:57 Home Medications Medication Instructions Recorded Confirmed Last Taken Type atorvastatin 80 mg tablet 80 mg PO BEDTIME 04/09/23 12/04/23 12/03/23 History finasteride 5 mg tablet 5 mg PO DAILY 04/09/23 12/04/23 12/04/23 History metoprolol succinate 100 mg 100 mg PO DAILY 04/09/23 12/04/23 12/04/23 History tablet,extended release 24 hr apixaban 5 mg tablet (Eliquis) 5 mg PO BID 12/04/23 12/04/23 12/04/23 History lisinopril 5 mg tablet 5 mg PO DAILY 12/04/23 12/04/23 12/04/23 History Physical Exam Vital Signs and Narrative: Vital Signs: Last Vital Signs Temp 97.8 F 12/04/23 15:31 Pulse 87 12/04/23 15:31 Resp 16 12/04/23 15:31 BP 96/42 L 12/04/23 15:31 Pulse Ox 97 12/04/23 15:31 O2 Del Method Room Air 12/04/23 15:31 BMI result Body Mass Index 20.2 Constitutional: Alert, in no distress, overweight, oriented to self, plce and month Mental Status: Oriented to person, place and time. Eyes: Pupils are equal, round and reactive to light. Ear, Nose and Throat: Oropharynx clear, mucous membranes moist. Respiratory: Clear to auscultation. No wheezing, rales or rhonchi. Cardiovascular: S1 S2 regular. No murmurs, rubs or gallops. Gastrointestinal: Abdomen soft, non-tender, non-distended. Normal bowel sounds.? Neurologic: Cranial nerves II-XII grossly intact. No focal neurological deficits. Moves all extremities spontaneously.? Skin: No rashes or lesions.? Musculoskeletal: No cyanosis or clubbing. Psychiatric: Normal mood and affect? Results Labs 12/05/23 10:01 12/05/23 10:01 Labs: Laboratory Results - last 24 hr 12/04/23 12/04/23 12/04/23 11:17 12:36 14:19 MCV 93.5 MCH 29.7 MCHC 31.8 RDW 13.4 Plt Count 237 D MPV 9.4 Immature Gran % (Auto) 1.3 H Neut % (Auto) 87.8 H Lymph % (Auto) 5.1 L [place] % (Auto) 5.4 Eos % (Auto) 0.1 Baso % (Auto) 0.3 Lymph # (Auto) 1.0 L [place] # (Auto) 1.1 Eos # (Auto) 0.0 Baso # (Auto) 0.1 Abs Immat Gran (auto) 0.26 H Absolute Neuts (auto) 17.2 H Absolute Nucleated RBC 0.000 Nucleated RBC % (auto) 0.0 Anion Gap 10 L Estim Creat Clear Calc 22.8 Estimated GFR 36 Random Glucose 130 H Lactic Acid 1.7 Calcium 8.5 D Magnesium 2.2 Total Bilirubin 0.2 AST 19 ALT 14 Alkaline Phosphatase 85 Total Creatine Kinase 70 Total Protein 5.9 L Albumin 2.7 L Urine Color Dark Yellow Urine Appearance Turbid Urine pH 6.0 Ur Specific [place] 1.020 Urine Protein 100 (2+) H Urine Glucose (UA) Negative Urine Ketones Negative Urine Blood Large (3+) H Urine Nitrite Negative Ur Leukocyte Esterase Large (3+) H Urine RBC >20 H Urine WBC >50 H Ur Squamous Epith Cells 0-2 Urine Bacteria 4+ Hyaline Casts 0-2 Assessment and Plan (1) Urinary tract infection: Status: Acute (2) Sepsis: Status: Acute (3) Hypotension: Status: Acute Plan 78/M with here with Sepsis d/t UTI severe sepsis d/t UTI--responded to IVF, no refractory low BP -Continue Ceftriaxone, follow culture -IVF HTN--hold BP meds in light of hypotension STEPHANE on CKD 4--IVF and repeat lab in the morning History PAD, claudication, s/f SFA complete occlusion -continue Eliquis HLD--Lipitor BPH--resume finesteride tomorrow dvt prophylaxis eliquis Dni/dnr.. MOLst in chart admit for at least 2 midnsight for treatment of sepsis causing hypotension needs ivf and iv abx Quality Stroke Does the patient have a stroke diagnosis?: No VTE Prior VTE?: No VTE Risk Level:: Medical - moderate - high VTE Device Contraindication: Treatment Not Indicated VTE Drug Contraindication: N/A - Med Ordered
--- NOTE | 2023-12-04 15:59 | PHA.MEDREC ---
Pharmacy Consult ? Medication Reconciliation Pharmacy has completed the medication reconciliation. Contacted [facility] to send medication list. Left message to call back. Claim history has all medication filled 11/27/23, patient reported that he takes all those medications however unclear how well he knows his medications . Will update provider if [facility] send list with any changes. Maryann Paul, MarshaD
[2023-12-04] MEDS: 0.9 % Sodium Chloride 1,000 ML 125 ML IVCONT (16:26)
--- NOTE | 2023-12-04 16:31 | PC.NURSE ---
IVF infusing via 20G in pts upper R arm at 125 ml/hr. pt has no complaints at this time, resting quietly in bed. pt requesting curtain to be closed. 14F wood in place with good output, urine dark and cloudy.
--- NOTE | 2023-12-04 17:25 | PM.UROCN ---
History of Present Illness Consult details Consult date: 12/04/23 Narrative: CC: Right staghorn calculus 78-year-old male Admission from assisted living with presentation of fatigue, malaise, myalgia Question of urinary tract infection Prior history UTI Creatinine 1.8, WBC 19.6, UA shows positive leukocytes, negative nitrites At home medication includes finasteride Previously has followed with [facility] in [place] CT Scan - Right renal staghorn calculi measuring up to approximately 2.8 cm in maximal dimension. Right renal parenchymal atrophy and scarring. Approximately 0.8 cm right ureteral stone (image 48, coronal series 6). No definite hydronephrosis on the right. Thickened bladder wall Indwelling Guerrero catheter May review as outpatient Review of Systems Constitutional: Constitutional: Reports as per HPI and Reports no additional constitutional complaints Cardiovascular: Cardiovascular: Reports as per HPI and Reports no additional cardiovascular complaints Respiratory: Respiratory: Reports as per HPI and Reports no additional respiratory complaints Gastrointestinal: Gastrointestinal: Reports as per HPI and Reports no additional gastrointestinal complaints Genitourinary: Genitourinary: Reports as per HPI Musculoskeletal: Musculoskeletal: Reports no additional musculoskeletal complaints and Reports as per HPI Neurologic: Reports system reviewed and no additional complaints, except as documented and Reports as per HPI [facility] Past Medical History Medical History (Updated 12/04/23 @ 16:08 by Perry Ward MD) PAD (peripheral artery disease) BPH (benign prostatic hyperplasia) HLD (hyperlipidemia) HTN (hypertension) Social History Social History Alcohol intake: never Patient Tobacco Use Status: Never used Tobacco Smoked in Last 30 Days: No Use of substances other than those prescribed or required for medical reasons: No Advance Directives: No Advance Directives Information Provided: Yes Nutrition Risks: No Nutritional Risk Meds Allergies Allergy/AdvReac Type Severity Reaction Status Date / Time No Known Allergies Allergy Verified 07/29/21 14:57 Active Medications: Current Medications Acetaminophen (Acetaminophen 325 Mg Tablet) 650 mg PO Q6H PRN PRN Reason: Pain, Mild (Pain Scale 1-3) Al Hydroxide/Mg Hydroxide (Magnesium Hydrox/Alum Hydrox 30 Ml Oral.Susp) 30 ml PO Q4H PRN PRN Reason: Heartburn/Nausea Apixaban (Apixaban 5 Mg Tablet) 5 mg PO BID [place] Atorvastatin Calcium (Atorvastatin Calcium 80 Mg Tablet) 80 mg PO BEDTIME [facility] Finasteride (Finasteride 5 Mg Tablet) 5 mg PO DAILY [facility] Sodium Chloride (Ns) 1,000 mls @ 125 mls/hr IVCONT .Q8H [facility] Last Admin: 12/04/23 16:26 Dose: 125 mls/hr Melatonin (Melatonin 3 Mg Tablet) 3 mg PO BEDTIME PRN PRN Reason: Insomnia Ondansetron HCl (Ondansetron Hcl 4 Mg/2 Ml Vial) 4 mg IVPUSH Q8H PRN PRN Reason: Nausea and Vomiting Sodium Chloride (0.9 % Sodium Chloride Flush 3 Ml Syringe) 3 ml IVFLUSH QSHIFT [facility] Home Medications Medication Instructions Recorded Confirmed Last Taken Type atorvastatin 80 mg tablet 80 mg PO BEDTIME 04/09/23 12/04/23 12/03/23 History finasteride 5 mg tablet 5 mg PO DAILY 04/09/23 12/04/23 12/04/23 History metoprolol succinate 100 mg 100 mg PO DAILY 04/09/23 12/04/23 12/04/23 History tablet,extended release 24 hr apixaban 5 mg tablet (Eliquis) 5 mg PO BID 12/04/23 12/04/23 12/04/23 History lisinopril 5 mg tablet 5 mg PO DAILY 12/04/23 12/04/23 12/04/23 History Physical Exam Vital Signs: Vital Signs: Last Vital Signs Temp 97.8 F 12/04/23 15:31 Pulse 76 12/04/23 16:23 Resp 19 12/04/23 16:23 BP 99/48 L 12/04/23 16:23 Pulse Ox 99 12/04/23 16:23 O2 Del Method Room Air 12/04/23 16:23 BMI result Body Mass Index 20.2 Const: General: cooperative, healthy appearing, comfortable and no acute distress Orientation/consciousness: patient oriented x3 HEENT: Face and sinus: Yes normal facial exam Mouth: moist mucous membranes Neck: Neck: Yes normal visual inspection, Yes full ROM and Yes trachea midline Chest: Chest palpation & inspection: normal inspection of the chest Resp: Effort & Inspection: normal respiratory effort, able to speak in complete sentences and no respiratory distress GI: Inspection: Yes normal to inspection Back/Spine/Pelvis: Cervical Spine: normal cervical lordosis Thoracic/Lumbar Spine: thoracic and lumbar spine normal to inspection Skin: General skin exam: no rashes or lesions noted Neuro: General: patient oriented x3, tone normal and moves all extremities Extrem: General: Yes normal to inspection and Yes capillary refill normal Results Labs 12/04/23 11:17 12/04/23 12:36 Labs: Abnormal lab results 12/04/23 12/04/23 12/04/23 Range/Units 11:17 12:36 14:19 WBC 19.6 H (4.8-10.8) X10*3/uL RBC 4.17 L (4.60-5.80) X10*6/uL Hgb 12.4 L (14.0-18.0) g/dl Hct 39.0 L (42.0-52.0) % Immature Gran % (Auto) 1.3 H (0.0-0.4) % Neut % (Auto) 87.8 H (45-73) % Lymph % (Auto) 5.1 L (20-40) % Lymph # (Auto) 1.0 L (1.2-4.9) X10*3/uL Abs Immat Gran (auto) 0.26 H (0.00-0.03) X10*3/uL Absolute Neuts (auto) 17.2 H (2.0-8.3) x10*3/uL Chloride 114 H (96-108) mmol/L Anion Gap 10 L (12-20) BUN 52 H (9-16) mg/dL Creatinine 1.82 H (0.5-1.4) mg/dL Random Glucose 130 H (60-115) mg/dL Total Protein 5.9 L (6.5-8.0) g/dL Albumin 2.7 L (3.5-5.0) g/dL Urine Protein 100 (2+) H (Neg-Trace) mg/dL Urine Blood Large (3+) H (Negative) Ur Leukocyte Esterase Large (3+) H (Negative) Urine RBC >20 H (0-2) /HPF Urine WBC >50 H (0-5) /HPF Short CBC 12/04/23 Range/Units 11:17 WBC 19.6 H (4.8-10.8) X10*3/uL Hgb 12.4 L (14.0-18.0) g/dl Hct 39.0 L (42.0-52.0) % Plt Count 237 D (160-400) X10*3/uL BMP 12/04/23 12:36 Sodium 144 Potassium 3.5 Chloride 114 H Carbon Dioxide 24 BUN 52 H Creatinine 1.82 H Calcium 8.5 D Cardiac Enzymes 12/04/23 Range/Units 12:36 Total Creatine Kinase 70 (38-174) U/L Liver Function 12/04/23 Range/Units 12:36 Total Bilirubin 0.2 (0.0-1.0) mg/dL AST 19 (5-37) U/L ALT 14 (0-40) U/L Alkaline Phosphatase 85 (39-117) U/L Albumin 2.7 L (3.5-5.0) g/dL Urine 12/04/23 Range/Units 14:19 Urine Color Dark Yellow Urine Appearance Turbid Urine pH 6.0 (5.0-9.0) Ur Specific [place] 1.020 (1.005-1.025) Urine Protein 100 (2+) H (Neg-Trace) mg/dL Urine Glucose (UA) Negative (Negative) mg/dL All other labs normal. Assessment and Plan (1) BPH (benign prostatic hyperplasia): Status: Acute (2) Sepsis: Status: Acute (3) Urinary tract infection: Status: Acute Plan Antibiotics Conservative therapy Guerrero catheter with drainage Procedures Date of Service Date of Service: 12/04/23
--- NOTE | 2023-12-04 19:27 | PC.NURSE ---
this rn assumed care of pt. pt resting in stretcher, no acute distress noted. vss. pt denies pain.
--- NOTE | 2023-12-04 20:09 | PC.NURSE ---
[facility] at this time.
--- NOTE | 2023-12-04 20:27 | PC.NURSE ---
This RN took over pt care @ 2019. Pt ca&ox3, no signs of distress. Pt positioned in bed for comfort. Plan of care ongoing.
[2023-12-04] MEDS: Atorvastatin Calcium 80 MG TABLET PO (21:09)
[2023-12-04] MEDS: Apixaban 5 MG TABLET PO (21:09)
--- NOTE | 2023-12-04 21:11 | PC.NURSE ---
Pt medicated per dec. Plan of care ongoing.
[2023-12-05] MEDS: 0.9 % Sodium Chloride 1,000 ML 125 ML IVCONT ×2 (01:20→08:12)
[2023-12-05] MEDS: Acetaminophen 325 MG TABLET 650 MG PO ×2 (06:07→19:56)
[2023-12-05 06:15] LABS: Alanine Aminotransferase 14 U/L (0-40); Albumin Level 2.4 g/dL (3.5-5.0); Alkaline Phosphatase 73 U/L (39-117); Anion Gap 10 (12-20); Aspartate Amino Transferase 17 U/L (5-37); Bilirubin Total 0.2 mg/dL (0.0-1.0); Blood Urea Nitrogen 35 mg/dL (9-16); Calcium 7.8 mg/dL (8.4-10.2); Carbon Dioxide 20 mmol/L (22-29); Chloride 117 mmol/L (96-108); Creatinine Clr Calc Pharmacy 33.6; Estimated Glomerular Filt Rate 56; Glucose Random 90 mg/dL (60-115); Potassium 3.7 mmol/L (3.3-5.1); Sodium 143 mmol/L (135-145); Total Protein 5.1 g/dL (6.5-8.0)
[2023-12-05 06:28] VITALS: BP 109/58; PULSE 80; RESP 14; TEMP 36.4; O2SAT 95
--- NOTE | 2023-12-05 06:40 | PC.NURSE ---
606 am pt c/o pain around the f/c site . catheter patent draining yellow urine med with tylenol 650 mg po philip reassess
[2023-12-05] MEDS: Finasteride 5 MG TABLET PO (08:10)
[2023-12-05] MEDS: Apixaban 5 MG TABLET PO ×2 (08:10→19:57)
[2023-12-05 10:06] LABS: Hematocrit 32.7 % (42.0-52.0); Hemoglobin 10.7 g/dl (14.0-18.0); Mean Corpuscular HGB Conc 32.7 g/dl (31.0-36.0); Mean Corpuscular Hemoglobin 30.1 pg (27.0-33.0); Mean Corpuscular Volume 91.9 fL (80.0-98.0); Mean Platelet Volume 8.9 fL (9.4-12.4); Platelet Count 190 X10*3/uL (160-400); Red Blood Count 3.56 X10*6/uL (4.60-5.80); Red Cell Distribution Width 13.2 % (11.0-16.0); White Blood Count 11.6 X10*3/uL (4.8-10.8)
[2023-12-05 10:23] LABS: Anion Gap 11 (12-20); Blood Urea Nitrogen 33 mg/dL (9-16); Calcium 7.9 mg/dL (8.4-10.2); Carbon Dioxide 19 mmol/L (22-29); Chloride 117 mmol/L (96-108); Creatinine Clr Calc Pharmacy 38.2; Estimated Glomerular Filt Rate > 60; Glucose Random 187 mg/dL (60-115); Potassium 3.7 mmol/L (3.3-5.1); Sodium 143 mmol/L (135-145)
--- NOTE | 2023-12-05 11:06 | HO.PM.IMPN ---
Subjective Subjective Date of Service: 12/05/23 Interval History: f/u sepsis d/t uti he's feeling better, no fever hypotension resolved. Physical Exam Vital Signs: Vital Signs: Last Vital Signs Temp 97.6 F 12/05/23 06:28 Pulse 80 12/05/23 06:28 Resp 14 12/05/23 06:28 BP 109/58 L 12/05/23 06:28 Pulse Ox 95 12/05/23 06:28 O2 Del Method Room Air 12/05/23 06:28 BMI result Body Mass Index 20.2 Const: Other: General: AO X 3, no acute distress Resp: CTA bilateral CVS: S1,S2,RRR GI: +BS, NT, no distention Skin: No rash Neuro: motor grossly intact Psych: appropriate affect Objective Data Active Medications Acetaminophen (Acetaminophen 325 Mg Tablet) 650 mg PO Q6H PRN PRN Reason: Pain, Mild (Pain Scale 1-3) Last Admin: 12/05/23 06:07 Dose: 650 mg Documented By: ALBERTO Al Hydroxide/Mg Hydroxide (Magnesium Hydrox/Alum Hydrox 30 Ml Oral.Susp) 30 ml PO Q4H PRN PRN Reason: Heartburn/Nausea Apixaban (Apixaban 5 Mg Tablet) 5 mg PO BID [facility] Last Admin: 12/05/23 08:10 Dose: 5 mg Documented By: YOLY Atorvastatin Calcium (Atorvastatin Calcium 80 Mg Tablet) 80 mg PO BEDTIME [facility] Last Admin: 12/04/23 21:09 Dose: 80 mg Documented By: LEONIDAS Finasteride (Finasteride 5 Mg Tablet) 5 mg PO DAILY [facility] Last Admin: 12/05/23 08:10 Dose: 5 mg Documented By: YOLY Sodium Chloride (Ns) 1,000 mls @ 125 mls/hr IVCONT .Q8H [facility] Last Admin: 12/05/23 08:12 Dose: 125 mls/hr Documented By: YOLY Ceftriaxone Sodium 1 gm/ (Sodium Chloride) 50 mls @ 100 mls/hr IV Q24H [facility] Melatonin (Melatonin 3 Mg Tablet) 3 mg PO BEDTIME PRN PRN Reason: Insomnia Ondansetron HCl (Ondansetron Hcl 4 Mg/2 Ml Vial) 4 mg IVPUSH Q8H PRN PRN Reason: Nausea and Vomiting Sodium Chloride (0.9 % Sodium Chloride Flush 3 Ml Syringe) 3 ml IVFLUSH QSHIFT [facility] Last Admin: 12/05/23 07:44 Dose: Not Given Documented By: YOLY Non-Admin Reason: IV Running Labs 12/05/23 10:01 12/05/23 10:01 Labs: Laboratory Results - last 24 hr 12/04/23 12/04/23 12/04/23 11:17 12:36 14:19 MCV 93.5 MCH 29.7 MCHC 31.8 RDW 13.4 Plt Count 237 D MPV 9.4 Immature Gran % (Auto) 1.3 H Neut % (Auto) 87.8 H Lymph % (Auto) 5.1 L [place] % (Auto) 5.4 Eos % (Auto) 0.1 Baso % (Auto) 0.3 Lymph # (Auto) 1.0 L [place] # (Auto) 1.1 Eos # (Auto) 0.0 Baso # (Auto) 0.1 Abs Immat Gran (auto) 0.26 H Absolute Neuts (auto) 17.2 H Absolute Nucleated RBC 0.000 Nucleated RBC % (auto) 0.0 Anion Gap 10 L Estim Creat Clear Calc 22.8 Estimated GFR 36 Random Glucose 130 H Lactic Acid 1.7 Calcium 8.5 D Magnesium 2.2 Total Bilirubin 0.2 AST 19 ALT 14 Alkaline Phosphatase 85 Total Creatine Kinase 70 Total Protein 5.9 L Albumin 2.7 L Urine Color Dark Yellow Urine Appearance Turbid Urine pH 6.0 Ur Specific [place] 1.020 Urine Protein 100 (2+) H Urine Glucose (UA) Negative Urine Ketones Negative Urine Blood Large (3+) H Urine Nitrite Negative Ur Leukocyte Esterase Large (3+) H Urine RBC >20 H Urine WBC >50 H Ur Squamous Epith Cells 0-2 Urine Bacteria 4+ Hyaline Casts 0-2 12/05/23 12/05/23 05:48 10:01 MCV 91.9 MCH 30.1 MCHC 32.7 RDW 13.2 Plt Count 190 MPV 8.9 L Immature Gran % (Auto) Neut % (Auto) Lymph % (Auto) [place] % (Auto) Eos % (Auto) Baso % (Auto) Lymph # (Auto) [place] # (Auto) Eos # (Auto) Baso # (Auto) Abs Immat Gran (auto) Absolute Neuts (auto) Absolute Nucleated RBC 0.000 Nucleated RBC % (auto) 0.0 Anion Gap 10 L 11 L Estim Creat Clear Calc 33.6 38.2 Estimated GFR 56 > 60 Random Glucose 90 187 H Lactic Acid Calcium 7.8 L D 7.9 L Magnesium Total Bilirubin 0.2 AST 17 ALT 14 Alkaline Phosphatase 73 Total Creatine Kinase Total Protein 5.1 L Albumin 2.4 L Urine Color Urine Appearance Urine pH Ur Specific [place] Urine Protein Urine Glucose (UA) Urine Ketones Urine Blood Urine Nitrite Ur Leukocyte Esterase Urine RBC Urine WBC Ur Squamous Epith Cells Urine Bacteria Hyaline Casts Assessment and Plan (1) Sepsis: Status: Acute (2) Urinary tract infection: Status: Acute (3) Hypotension: Status: Acute (4) HTN (hypertension): Status: Acute (5) HLD (hyperlipidemia): Status: Acute (6) BPH (benign prostatic hyperplasia): Status: Acute Plan 78/M with here with Sepsis d/t UTI severe sepsis d/t UTI--responded to IVF, sepsis resolved -Continue Ceftriaxone, follow culture -stop IVF HTN--hold BP meds today d/t borderline hypOtension STEPHANE on CKD 4--resolved with IVF mild hyperchloremic metabolic acidosis--d/t IVF, stop fluid and monitor History PAD, claudication, s/f SFA complete occlusion -continue Eliquis HLD--Lipitor BPH-- finesteride dvt prophylaxis eliquis Dni/dnr.. MOLST in chart admit for at least 2 midnsight for treatment of sepsis causing hypotension needs ivf and iv abx Quality Stroke Does the patient have a stroke diagnosis?: No VTE Prior VTE?: No VTE Risk Level:: Medical - moderate - high VTE Device Contraindication: Treatment Not Indicated VTE Drug Contraindication: N/A - Med Ordered
[2023-12-05] MEDS: cefTRIAXone sodium 1 GM in 0.9 % Sodium Chloride 50 ML IV (12:37)
[2023-12-05 13:47] VITALS: BP 111/56; PULSE 67; RESP 18; TEMP 36.3; O2SAT 96
[2023-12-05 16:00] VITALS: BP 137/58; PULSE 76; RESP 16; TEMP 36.4; O2SAT 97
[2023-12-05] MEDS: 0.9 % Sodium Chloride Flush 3 ML SYRINGE IVFLUSH ×2 (17:21→19:57)
[2023-12-05 19:12] VITALS: BP 121/59; PULSE 86; RESP 17; TEMP 36.3; O2SAT 96
[2023-12-05] MEDS: Atorvastatin Calcium 80 MG TABLET PO (19:57)
[2023-12-05 23:25] VITALS: BP 122/61; PULSE 90; RESP 17; TEMP 36.8; O2SAT 95
[2023-12-06] VITALS (7 sets, daily range): BP systolic 121–138; BP diastolic 59–72; PULSE 70–85; RESP 12–17; TEMP 36.4–37.3; O2SAT 95–98
[2023-12-06 05:48] LABS: Hematocrit 35.9 % (42.0-52.0); Hemoglobin 11.5 g/dl (14.0-18.0); Mean Corpuscular Hemoglobin 29.4 pg (27.0-33.0); Mean Corpuscular Volume 91.8 fL (80.0-98.0); Platelet Count 205 X10*3/uL (160-400); Red Blood Count 3.91 X10*6/uL (4.60-5.80); Red Cell Distribution Width 13.1 % (11.0-16.0)
[2023-12-06 06:07] LABS: Anion Gap 10 (12-20); Blood Urea Nitrogen 24 mg/dL (9-16); Calcium 8.3 mg/dL (8.4-10.2); Carbon Dioxide 23 mmol/L (22-29); Chloride 116 mmol/L (96-108); Creatinine Clr Calc Pharmacy 32.8; Estimated Glomerular Filt Rate 55; Glucose Random 104 mg/dL (60-115); Potassium 3.6 mmol/L (3.3-5.1); Sodium 145 mmol/L (135-145)
--- NOTE | 2023-12-06 07:52 | PM.DS ---
DS: Providers Provider Date of Service: 12/07/23 Date of admission: 12/04/23 16:05 Primary care physician: Brianna Chase MD Consults: 12/04/23 16:03 Consult to Urology Stat Consulting Provider: Brennon Peck Reason for consultation: stone on CT urosepsis DS: Diagnosis Discharge Diagnosis (1) Sepsis: Status: Acute (2) Urinary tract infection: Status: Acute (3) Hypotension: Status: Acute (4) HTN (hypertension): Status: Acute (5) HLD (hyperlipidemia): Status: Acute (6) BPH (benign prostatic hyperplasia): Status: Acute DS: Summary Hospital Course Hospital Course: admission hpi [facility] Complaint: malaise, urinary frequency, chills The patient is an 78-year-old male with a history of PAD/claudication and SFA complete occlusion, which necessitated a right femoral cutdown and embolectomy in April 2023. He also has a medical history of hypertension (HTN), benign prostatic hyperplasia (BPH), hyperlipidemia (HLD), and is currently residing in [facility]. He presented with symptoms including dark urine, feeling unwell, chills, and urinary frequency, stating, I have had this before. Record show that he was given cefuroxime on outpatient basis. Evaluation in the emergency department revealed a gross urinary tract infection (UTI) and an episode of hypotension, for which he received a sepsis bolus. He also has acute kidney injury (STEPHANE) on chronic kidney disease (CKD). Lactic acid levels are normal, and his white blood cell count (WBC) is elevated at 19 K. At one point, his systolic blood pressure (SBP) was 87 but has since risen above 90 with intravenous fluids (IVF). There is no fever or flank tenderness. A CT scan of the abdomen and pelvis is pending. hospital course: The patient presented with weakness, chills, and urinary frequency, diagnosed with sepsis due to a urinary tract infection (UTI), accompanied by hypotension, acute kidney injury (STEPHANE), and a CT scan revealing staghorn calculi without hydronephrosis. Initial treatment included intravenous fluids (IVF) which resolved the hypotension, along with IV Ceftriaxone for the UTI. Although urine and blood cultures have been negative so far, the initial white blood cell count (WBC) of 19K has decreased to 8K. The patient has received 3 days of IV Ceftriaxone and will now transition to oral Ceftin 250 mg twice daily for an additional 7 days. A Wood catheter was inserted due to the kidney stone and STEPHANE, and the patient was evaluated by a urologist ([facility]) who recommended conservative management with antibiotics, Wood catheter, and outpatient follow-up. The STEPHANE in the setting of chronic kidney disease (CKD) has resolved. Hypotension has also resolved, and metoprolol has been resumed, while Lisinopril will be withheld due to kidney failure. Overall, the patient is progressing well and will be discharged with outpatient follow-up. To resume other medications including eliquis for PAD/history of SFA clot Final diagnosis: severe sepsis UTI STEPHANE Staghorn calculous Hypotension Time Attestation Discharge coordination time: Greater than 30 minutes Quality: Safe Use of Opioids Does Pt have an Active Cancer Diagnosis on the Problem List?: No Quality: Stroke Does the patient have a stroke diagnosis?: No Physical Exam Vital Signs: Vital Signs: Selected Entries 12/07/23 07:36 Temperature 97.9 F Pulse Rate 84 Respiratory Rate 14 Blood Pressure 146/78 H Pulse Oximetry 95 Oxygen Delivery Me thod Room Air General: AO X 3, no acute distress Resp: CTA bilateral CVS: S1,S2,RRR GI: +BS, NT, no distention Skin: No rash Neuro: motor grossly intact Psych: appropriate affect DS: Data Data Completed and Pending Labs on day of discharge: Laboratory Results - last 24 hr 12/05/23 12/06/23 10:01 05:28 WBC 11.6 H 8.0 RBC 3.56 L 3.91 L Hgb 10.7 L 11.5 L Hct 32.7 L 35.9 L MCV 91.9 91.8 MCH 30.1 29.4 MCHC 32.7 32.0 RDW 13.2 13.1 Plt Count 190 205 MPV 8.9 L 9.0 L Absolute Nucleated RBC 0.000 0.000 Nucleated RBC % (auto) 0.0 0.0 Sodium 143 145 Potassium 3.7 3.6 Chloride 117 H 116 H Carbon Dioxide 19 L 23 Anion Gap 11 L 10 L BUN 33 H 24 H Creatinine 1.09 1.27 Estim Creat Clear Calc 38.2 32.8 Estimated GFR > 60 55 Random Glucose 187 H 104 Calcium 7.9 L 8.3 L Preliminary micro results at discharge 12/04/23 11:23 Blood Culture - Preliminary Blood - Venous No growth after 24 hours. 12/04/23 11:17 Blood Culture - Preliminary Blood - Venous No growth after 24 hours. Discharge Plan Discharge Anticipated Discharge Date/Time: 12/07/23 08:30 Patient Disposition: Home Health Service Discharge Diagnosis: Sepsis due to UIT, hypotension, STEPHANE, Staghorn calculus Referrals: Chrystal DAVIDSON [Outside] - 3-5 Days (For senior care and PT. Chrystal DAVIDSON will call to schedule. ) Brianna Chase MD [Primary Care Provider] - 1 Week Discharge Medications: New cefuroxime axetil 250 mg tablet 250 mg PO BID 7 Days Qty: 14 0RF Continued Eliquis 5 mg tablet 5 mg PO BID lisinopril 5 mg tablet 5 mg PO DAILY atorvastatin 80 mg tablet 80 mg PO BEDTIME metoprolol succinate 100 mg tablet extended release 24 hr 100 mg PO DAILY finasteride 5 mg tablet 5 mg PO DAILY Discharge Orders: Discharge Order (Routine); Ordered 12/07/23 Ordered By: Perry Ward Diet: Advance to usual diet Activity on Discharge: As tolerated Stand Alone Forms: Patient Portal Discharge page Care Plan Goals: full recovery from uti, sepsis and kidney stone Health Concerns: uti, sepsis, kidney stone Plan of Treatment: take cefuroxime 250 mg twice daily to treat uti and sepsis keep wood catheter in place and follow up with your urologist at [facility] for reevaluation of kidney stone Wood care w/ 30-60 cc sterile water PRN for increased sediment or blockage, if becomes dislodged may replace samesize PRN and routine q 4 weeks. Assessment: see above Patient Instructions: Urinary Tract Infection in Men (GEN), Sepsis (GEN)
[2023-12-06] MEDS: Acetaminophen 325 MG TABLET 650 MG PO (08:22)
[2023-12-06] MEDS: Metoprolol Succinate ER 100 MG TAB.ER.24H PO (08:22)
[2023-12-06] MEDS: Finasteride 5 MG TABLET PO (08:23)
[2023-12-06] MEDS: Apixaban 5 MG TABLET PO ×2 (08:23→19:17)
[2023-12-06] MEDS: 0.9 % Sodium Chloride Flush 3 ML SYRINGE IVFLUSH ×2 (08:24→17:16)
--- NOTE | 2023-12-06 09:54 | MHC.CM.PN ---
PATIENT LIVES IN INDEPENDENT LIVING APARTMENT AT [facility]. HE DOES NOT RECALL IF HE HAS A HCP OR NOT AND IS NOT READY TO ASSIGN AN AGENT AT THIS TIME DESPITE T/W EXPLANATION OF WHAT A HCP IS. HE REPORTS THAT HE DRIVES HIMSELF WHERE HE NEEDS TO GO. HE DOES HAVING A CLEANING PERSON 1X/WEEK PROVIDED BY [facility]. NO [facility] OR [facility] SERVICES, ACCORDING TO PATIENT. IMM EXPLAINED, SIGNED, AND A 12/06/23 COPY IS PLACED IN CHART. CASE MANAGEMENT FOLLOWING FOR DC NEEDS.
--- NOTE | 2023-12-06 12:24 | MHC.CM.PN ---
CASE MANAGEMENT AWAITING PT EVALUATION FOR DC NEEDS. [facility] AND [facility] REFERRALS PLACED IN THE EVENT PATIENT DC NEEDS CANNOT BE MANAGED AT HOME WITH SERVICES.
[2023-12-06] MEDS: cefTRIAXone sodium 1 GM in 0.9 % Sodium Chloride 50 ML IV (14:19)
--- NOTE | 2023-12-06 15:14 | MHC.CM.PN ---
P.T. RECOMMENDS HOME WITH SERVICES REFERRAL PLACED TO [facility] TO INQUIRE IF THEY CAN OFFER.
--- NOTE | 2023-12-06 16:17 | MHC.CM.PN ---
PLAN IS HOME Sunday12/07/23 WITH NEW [facility] SERVICES STARTING Sunday12/09/23. PATIENT WILL RECEIVE RN SKILLS FOR [facility] AND HOME P.T. [facility] ORDERS NEEDED. MADE AWARE. PATIENT WILL LIKELY NEED AMBULANCE TRANSPORT HOME. IMM IN CHART
--- NOTE | 2023-12-06 16:21 | HO.PM.IMPN ---
Subjective Subjective Date of Service: 12/07/23 Interval History: f/u sepsis d/t uti he's feeling better, no fever hypotension resolved. wbc now normal Physical Exam Vital Signs: Vital Signs: Last Vital Signs Temp 97.9 F 12/06/23 15:37 Pulse 73 12/06/23 15:37 Resp 16 12/06/23 15:37 BP 129/67 12/06/23 15:37 Pulse Ox 97 12/06/23 15:37 O2 Del Method Room Air 12/06/23 15:37 BMI result Body Mass Index 20.2 General: AO X 3, no acute distress Resp: CTA bilateral CVS: S1,S2,RRR GI: +BS, NT, no distention Skin: No rash Neuro: motor grossly intact Psych: appropriate affect Objective Data Active Medications Acetaminophen (Acetaminophen 325 Mg Tablet) 650 mg PO Q6H PRN PRN Reason: Pain, Mild (Pain Scale 1-3) Last Admin: 12/06/23 08:22 Dose: 650 mg Documented By: JAIDEN Al Hydroxide/Mg Hydroxide (Magnesium Hydrox/Alum Hydrox 30 Ml Oral.Susp) 30 ml PO Q4H PRN PRN Reason: Heartburn/Nausea Apixaban (Apixaban 5 Mg Tablet) 5 mg PO BID COUNT INCLUDES THE [facility] Last Admin: 12/06/23 08:23 Dose: 5 mg Documented By: JAIDEN Atorvastatin Calcium (Atorvastatin Calcium 80 Mg Tablet) 80 mg PO BEDTIME COUNT INCLUDES THE [facility] Last Admin: 12/05/23 19:57 Dose: 80 mg Documented By: ALBERTO Finasteride (Finasteride 5 Mg Tablet) 5 mg PO DAILY COUNT INCLUDES THE [facility] Last Admin: 12/06/23 08:23 Dose: 5 mg Documented By: JAIDEN Ceftriaxone Sodium 1 gm/ (Sodium Chloride) 50 mls @ 100 mls/hr IV Q24H COUNT INCLUDES THE [facility] Last Infusion: 12/06/23 15:01 Dose: Infused Documented By: LI Melatonin (Melatonin 3 Mg Tablet) 3 mg PO BEDTIME PRN PRN Reason: Insomnia Metoprolol Succinate (Metoprolol Succinate Er 100 Mg Tab.Er.24h) 100 mg PO DAILY COUNT INCLUDES THE [facility]; Protocol Last Admin: 12/06/23 08:22 Dose: 100 mg Documented By: JAIDEN Ondansetron HCl (Ondansetron Hcl 4 Mg/2 Ml Vial) 4 mg IVPUSH Q8H PRN PRN Reason: Nausea and Vomiting Sodium Chloride (0.9 % Sodium Chloride Flush 3 Ml Syringe) 3 ml IVFLUSH QSHIFT ESTEE Last Admin: 12/06/23 08:24 Dose: 3 ml Documented By: JAIDEN Labs 12/06/23 05:28 12/06/23 05:28 Labs: Laboratory Results - last 24 hr 12/06/23 05:28 MCV 91.8 MCH 29.4 MCHC 32.0 RDW 13.1 Plt Count 205 MPV 9.0 L Absolute Nucleated RBC 0.000 Nucleated RBC % (auto) 0.0 Anion Gap 10 L Estim Creat Clear Calc 32.8 Estimated GFR 55 Random Glucose 104 Calcium 8.3 L Microbiology Microbiology Results: Microbiology 12/04/23 11:23 Blood Culture - Preliminary Blood - Venous No growth after 48 hours. 12/04/23 11:17 Blood Culture - Preliminary Blood - Venous No growth after 48 hours. 12/04/23 Unknown Urine Culture - Final Urine Catheterized - Guerrero Catheter Assessment and Plan (1) Sepsis: Status: Acute (2) Urinary tract infection: Status: Acute (3) Hypotension: Status: Acute (4) HTN (hypertension): Status: Acute (5) HLD (hyperlipidemia): Status: Acute (6) BPH (benign prostatic hyperplasia): Status: Acute Plan 78/M with here with Sepsis d/t UTI severe sepsis d/t UTI, sepsis resolved, hypotension resolved -Continue Ceftriaxone, culture negative, wbc now normal HTN--restarted metoprolol, hold lisinopril d/t residual renal failure STEHPANE on CKD 4--resolved mild hyperchloremic metabolic acidosis--d/t IVF, resolved. History PAD, claudication, s/f SFA complete occlusion -continue Eliquis HLD--Lipitor BPH-- finesteride dvt prophylaxis eliquis Dni/dnr.. MOLST in chart need for inpt: IV Abx for severe sepsis d/t uti, culture pending dc tomorrow Quality Stroke Does the patient have a stroke diagnosis?: No VTE Prior VTE?: No VTE Risk Level:: Medical - moderate - high VTE Device Contraindication: Treatment Not Indicated VTE Drug Contraindication: N/A - Med Ordered
[2023-12-06] MEDS: Atorvastatin Calcium 80 MG TABLET PO (19:17)
[2023-12-07] MEDS: 0.9 % Sodium Chloride Flush 3 ML SYRINGE IVFLUSH ×2 (00:16→08:00)
[2023-12-07 03:45] VITALS: BP 134/65; PULSE 82; RESP 16; TEMP 37.1; O2SAT 98
[2023-12-07 07:36] VITALS: BP 146/78; PULSE 84; RESP 14; TEMP 36.6; O2SAT 95
[2023-12-07] MEDS: Metoprolol Succinate ER 100 MG TAB.ER.24H PO (07:55)
[2023-12-07] MEDS: Apixaban 5 MG TABLET PO (07:57)
[2023-12-07] MEDS: Finasteride 5 MG TABLET PO (07:58)
--- NOTE | 2023-12-07 10:56 | MHC.CM.PN ---
PER MD ROUNDS PATIENT IS MEDICALLY CLEARED FOR DC HOME WITH NEW [facility] FOR PT AND SN ([facility]). BLS TRANSPORTATION SCHEDULED FOR 3PM. PATIENT, RN, MD AND [facility] AWARE.
--- NOTE | 2023-12-07 11:45 | P.F2F_ITS ---
Service Date Service Date: 12/07/23 Encounter Date of encounter: 12/07/23 Reasons for Services Signs and symptoms assessed: weakness, urinary retention Reason for care home: medication management, medication treatment and other (Guerrero) Homebound: Leaving the home is medically contraindicated at this time without the asist of a device and/or another person due th the listed conditions above and below. Reason homebound: fall risk related to blood pressure changes and weakness related to hospital stay Homebound supporting statement: homebound due to weakness from hospitalization and therefore needs the assistance of another person Certification: Based on the above findings, I certify that this patient is confined to the home and needs intermittent care home care, physical therapy and/or speech ther apy, or continues to need occupational therapy. The patient is under my care, and I have initiated the establishment of the plan of care. The patient will be followed by a physician who will periodically review the plan of care. Time Spent With Patient Time: Total time managing care of this patient today ____ minutes.
[2023-12-07 11:49] VITALS: BP 140/66; PULSE 88; RESP 16; TEMP 36.4; O2SAT 97
[2023-12-07] MEDS: cefTRIAXone sodium 1 GM in 0.9 % Sodium Chloride 50 ML IV (12:17)
[2023-12-07] MEDS: Acetaminophen 325 MG TABLET 650 MG PO (12:56)
--- NOTE | 2023-12-07 14:18 | HO.PM.IMPN ---
Subjective Subjective Date of Service: 12/07/23 Interval History: f/u sepsis d/t uti he's feeling better, no fever hypotension resolved. wbc now normal recommend str and therefore not able dc Physical Exam Vital Signs: Vital Signs: Last Vital Signs Temp 97.5 F 12/07/23 11:49 Pulse 88 12/07/23 11:49 Resp 16 12/07/23 11:49 BP 140/66 H 12/07/23 11:49 Pulse Ox 97 12/07/23 11:49 O2 Del Method Room Air 12/07/23 11:49 BMI result Body Mass Index 20.2 General: AO X 3, no acute distress Resp: CTA bilateral CVS: S1,S2,RRR GI: +BS, NT, no distention Skin: No rash Neuro: motor grossly intact Psych: appropriate affect Objective Data Active Medications Acetaminophen (Acetaminophen 325 Mg Tablet) 650 mg PO Q6H PRN PRN Reason: Pain, Mild (Pain Scale 1-3) Last Admin: 12/07/23 12:56 Dose: 650 mg Documented By: JAIDEN Al Hydroxide/Mg Hydroxide (Magnesium Hydrox/Alum Hydrox 30 Ml Oral.Susp) 30 ml PO Q4H PRN PRN Reason: Heartburn/Nausea Apixaban (Apixaban 5 Mg Tablet) 5 mg PO BID [facility] Last Admin: 12/07/23 07:57 Dose: 5 mg Documented By: DANIEL Atorvastatin Calcium (Atorvastatin Calcium 80 Mg Tablet) 80 mg PO BEDTIME [facility] Last Admin: 12/06/23 19:17 Dose: 80 mg Documented By: LI Finasteride (Finasteride 5 Mg Tablet) 5 mg PO DAILY [facility] Last Admin: 12/07/23 07:58 Dose: 5 mg Documented By: DANIEL Ceftriaxone Sodium 1 gm/ (Sodium Chloride) 50 mls @ 100 mls/hr IV Q24H [facility] Last Infusion: 12/07/23 12:57 Dose: Infused Documented By: JAIDEN Melatonin (Melatonin 3 Mg Tablet) 3 mg PO BEDTIME PRN PRN Reason: Insomnia Metoprolol Succinate (Metoprolol Succinate Er 100 Mg Tab.Er.24h) 100 mg PO DAILY [facility]; Protocol Last Admin: 12/07/23 07:55 Dose: 100 mg Documented By: DANIEL Ondansetron HCl (Ondansetron Hcl 4 Mg/2 Ml Vial) 4 mg IVPUSH Q8H PRN PRN Reason: Nausea and Vomiting Sodium Chloride (0.9 % Sodium Chloride Flush 3 Ml Syringe) [facility] Last Admin: 12/07/23 08:00 Dose: 3 ml Documented By: DANIEL Labs 12/06/23 05:28 12/06/23 05:28 Microbiology Microbiology Results: Microbiology 12/04/23 11:23 Blood Culture - Preliminary Blood - Venous No growth after 48 hours. 12/04/23 11:17 Blood Culture - Preliminary Blood - Venous No growth after 48 hours. Assessment and Plan (1) Sepsis: Status: Acute (2) Urinary tract infection: Status: Acute (3) Hypotension: Status: Acute (4) HTN (hypertension): Status: Acute (5) HLD (hyperlipidemia): Status: Acute (6) BPH (benign prostatic hyperplasia): Status: Acute Plan 78/M with here with Sepsis d/t UTI severe sepsis d/t UTI, sepsis resolved, hypotension resolved -Continue Ceftriaxone , culture negative, wbc now normal HTN--restarted metoprolol, hold lisinopril d/t residual renal failure urinary retention d/t bph--urology recommends wood and outpatient f/u with his urologist STEPHANE on CKD 4--resolved mild hyperchloremic metabolic acidosis--d/t IVF, resolved. History PAD, claudication, s/f SFA complete occlusion -continue Eliquis HLD--Lipitor BPH-- finesteride dvt prophylaxis eliquis Dni/dnr.. MOLST in chart need for inpt: IV Abx for severe sepsis d/t uti, culture pending PT recommends STR Quality Stroke Does the patient have a stroke diagnosis?: No VTE Prior VTE?: No VTE Risk Level:: Medical - moderate - high VTE Device Contraindication: Treatment Not Indicated VTE Drug Contraindication: N/A - Med Ordered
[2023-12-07 15:29] VITALS: BP 124/64; PULSE 74; RESP 14; TEMP 36.3; O2SAT 93
== END 2023-12-07 19:02 | disposition home health service (06) | DRG 872 ==
LOC: HO.ED 15:18 → HO.EDOVER 16:23 → HO.S3 12-05 15:10
PROVIDERS: Physician Assistant; Admitting Provider Internal Medicine; Emergency Provider Emergency Medicine; PCP Internal Medicine; Visit Provider Internal Medicine
DX: A41.9 Sepsis, unspecified organism (principal); N39.0 Urinary tract infection, site not specified; N18.4 Chronic kidney disease, stage 4 (severe); N17.9 Acute kidney failure, unspecified; E87.20 Acidosis, unspecified; R65.20 Severe sepsis without septic shock; N20.0 Calculus of kidney; E87.8 Other disorders of electrolyte and fluid balance, not elsewhere classified; I73.9 Peripheral vascular disease, unspecified; Z66 Do not resuscitate; I95.9 Hypotension, unspecified; N40.0 Benign prostatic hyperplasia without lower urinary tract symptoms; I12.9 Hypertensive chronic kidney disease with stage 1 through stage 4 chronic kidney disease, or unspecified chronic kidney disease; Z87.440 Personal history of urinary (tract) infections; Z79.01 Long term (current) use of anticoagulants; Z79.82 Long term (current) use of aspirin; Z79.899 Other long term (current) drug therapy
CPT/HCPCS: 36415; 74176; 80048; 80053; 81001; 82550; 83605; 83735; 85025; 85027; 87040; 87086; 97162; 99285; C1758; J0696

== ENCOUNTER → 2023-12-04 16:05 | Outpatient (BNV) | payer MEDICARE, SELFPAY | PROVIDERS: Admitting Provider Internal Medicine; Emergency Provider Emergency Medicine; PCP Internal Medicine; Visit Provider Internal Medicine | DX: A41.9 Sepsis, unspecified organism (principal); N39.0 Urinary tract infection, site not specified; I95.9 Hypotension, unspecified; I12.9 Hypertensive chronic kidney disease with stage 1 through stage 4 chronic kidney disease, or unspecified chronic kidney disease; E78.5 Hyperlipidemia, unspecified | CPT/HCPCS: 99223; 99232; 99238; G0180 ==

== ENCOUNTER → 2023-12-04 16:05 | Outpatient (BNV) | payer MEDICARE, SELFPAY | PROVIDERS: Admitting Provider Internal Medicine; Emergency Provider Emergency Medicine; PCP Internal Medicine; Visit Provider Urology | DX: N40.0 Benign prostatic hyperplasia without lower urinary tract symptoms (principal); A41.9 Sepsis, unspecified organism; N39.0 Urinary tract infection, site not specified | CPT/HCPCS: 99222 ==

== ENCOUNTER 2023-12-08 12:15 | Inpatient (IN) | payer MEDICARE, SELFPAY ==
--- NOTE | ~2023-12-08 | CT_ITS ---
EXAMINATION: CT ABDOMEN AND PELVIS WITHOUT CONTRAST CLINICAL INFORMATION: Hematuria COMPARISON: CT abdomen pelvis 12/04/2023. TECHNIQUE: Multidetector volumetric imaging was performed from the superior aspect of the liver through the pubic symphysis. Sagittal and coronal reformatted images were obtained on the technologist's workstation. This CT examination was performed using dose optimization techniques as appropriate, variously including the following: *Automated exposure control *Adjustment of mA and/or kV according to patient size (this includes techniques or standardized protocols for targeted exams where dose is matched to indication/reason for exam; i.e. extremities or head) *Use of iterative reconstruction technique DLP: 405 mGy-cm FINDINGS: LUNG BASES: Trace left pleural effusion and minimal posterior dependent left base compressive atelectasis. Chronic appearing subpleural scarring and traction bronchiectasis within the medial right lung base. LIVER, GALLBLADDER, AND BILIARY TREE: The previous noted scattered rounded low density foci within the liver are again visualized and are most suspicious for benign entities including hepatic cysts and subtle in the basis of this examination warrant no additional imaging follow-up. Multiple peripherally calcified gallstones are present within the gallbladder lumen. No: The lobe cholelithiasis identified. No biliary duct dilatation noted. PANCREAS: Unremarkable. SPLEEN: Unremarkable. ADRENAL GLANDS: Unremarkable. KIDNEYS AND URETERS: Right kidney: 2.8 cm staghorn calculus within the superior right renal pelvis. 3 calculi within the inferior right renal pelvis, the largest measuring 1.2 cm x 1.0 cm. 9 mm x 7 mm calculus at the right ureteropelvic junction diffuse right renal atrophy. No right sided hydronephrosis or perinephric inflammatory changes. 5 mm x 6 mm right ureteral calculus within the middle segment of the right ureter at the level of L4-L5 no proximal right-sided ureterectasis. Left kidney: 4.6 cm rounded low-density focus associated with the inferior pole which is most consistent with a benign, simple cyst requiring no additional imaging follow-up. No hydronephrosis no perinephric fluid collections or definitive perinephric inflammatory changes. No left-sided ureterectasis. BLADDER: Guerrero catheter terminating within the bladder lumen. Bladder wall demonstrates diffuse mural thickening and nondependent gas is present within the urinary bladder lumen. The urinary bladder wall measures approximately 5 mm in width diffusely and mild perivesicular fat reticulation is present. GASTROINTESTINAL TRACT: No intestinal dilatation or mural thickening identified. Normal appendix. No free intraperitoneal fluid or free intraperitoneal gas collections identified. No inflammatory changes of the sigmoid mesentery or small bowel mesentery. Normal stomach and duodenum. ABDOMINAL WALL: Unchanged small periumbilical hernia measuring 1 cm in diameter containing omental fat without associated inflammatory changes. LYMPH NODES: Normal. VASCULAR: Moderate diffuse calcific atherosclerosis PELVIC VISCERA: The prostate is diffusely enlarged measuring 5.5 cm in AP dimension. Punctate foci of gas are newly identified in the posterior aspect of the prostate approximately 1.3 cm posterior to the prosthetic urethra. (Series 3 image 77). OSSEOUS STRUCTURES: Multilevel lumbosacral posterior instrumented fusion as previously noted. Bilateral partial lumbarization of the presumed S1 vertebral body. No vertebral body compression deformities. CT/CT abdomen pelvis wo IV con IMPRESSION: 1. Findings suspicious for acute cystitis. Diffuse mural thickening of the urinary bladder wall with mild perivesicular fat reticulation suspicious for cystitis. Guerrero catheter terminating within the urinary bladder lumen. 2. Punctate foci of gas within the posterior aspect of the prostate approximately 1.3 cm posterior to the prosthetic urethra. 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 Findings are new compared with 12/04/2023. 3. Unchanged right-sided urolithiasis without evidence of acute right-sided obstructive uropathy. Multiple right-sided renal calculi including a 2.8 cm staghorn calculus within the superior right renal pelvis and a 9 mm x 7 mm calculus at the right ureteropelvic junction. No right-sided hydronephrosis or perinephric inflammatory changes. Diffuse right renal atrophy. Unchanged 5 mm x 6 mm right ureteral calculus at the level L4-L5 without associated proximal ureterectasis. 4. Cholelithiasis. 5. Trace left pleural effusion and minimal posterior dependent left base compressive atelectasis.
[2023-12-08 12:26] VITALS: BP 112/68; PULSE 82; O2SAT 99; BMI 20.1
--- NOTE | 2023-12-08 12:50 | PC.NURSE ---
a&ox4. vss and up to date. pt brought in from [facility] d/t hematuria/feeling dizzy. sx started last night. pt recently d/c'd from [facility] being septic w/ UTI. pt had wood catheter placed 1 week ago and has remained in place since. red/cloudy urine noted in wood catheter bag. pt also c/o 5/10 discomfort at the perineal area. denies fever/chills. pt waiting to be seen by ED provider. plan of care ongoing.
--- NOTE | 2023-12-08 12:53 | ED.MALEGU ---
HPI - Male Genitourinary General Chief complaint: Urogenital-Male Stated complaint: CC OF HEMATURIA Time Seen by Provider: 12/08/23 12:23 Source: patient and EMS Mode of arrival: ambulatory Limitations: no limitations History of Present Illness HPI Narrative: This is an 78-year-old male coming from assisted living facility history of hypertension, hyperlipidemia, BPH presenting to the emergency department with complaints fatigue, malaise, myalgias, dizziness, heamturia X2 days. History of UTIs and this feels like his typical UTI. Denies flank pain, abdominal pain, nausea, vomiting, abdominal pain, headache, vision changes, dizziness, chest pain and shortness of breath. Related Data Home Medications Medication Instructions Recorded Confirmed atorvastatin 80 mg tablet 80 mg PO BEDTIME 04/09/23 12/04/23 finasteride 5 mg tablet 5 mg PO DAILY 04/09/23 12/04/23 metoprolol succinate 100 mg 100 mg PO DAILY 04/09/23 12/04/23 tablet,extended release 24 hr apixaban 5 mg tablet (Eliquis) 5 mg PO BID 12/04/23 12/04/23 lisinopril 5 mg tablet 5 mg PO DAILY 12/04/23 12/04/23 Previous Rx's Medication Instructions Recorded cefuroxime axetil 250 mg tablet 250 mg PO BID 7 days #14 tabs 12/06/23 Allergies Allergy/AdvReac Type Severity Reaction Status Date / Time No Known Allergies Allergy Verified 12/08/23 12:26 Review of Systems Review of Systems: Yes all other systems are reviewed and are negative [facility] Past Medical History Attestation statement: The following information was validated with the patient. Source: old records reviewed and nursing notes reviewed Medical History PAD (peripheral artery disease) BPH (benign prostatic hyperplasia) HLD (hyperlipidemia) HTN (hypertension) Social History Social History Housing: Assisted Living Facility Alcohol intake: never Patient Tobacco Use Status: Never used Tobacco Smoked in Last 30 Days: No Use of substances other than those prescribed or required for medical reasons: No Advance Directives: No Advance Directives Information Provided: No service: No Physical Exam Vital Signs: Vital Signs: Last Vital Signs Temp 97.6 F 12/08/23 15:25 Pulse 84 12/08/23 15:25 Resp 16 12/08/23 15:25 BP 125/64 12/08/23 15:25 Pulse Ox 98 12/08/23 15:25 O2 Del Method Room Air 12/08/23 15:25 BMI result Body Mass Index 20.1 Appearance: Alert.? Oriented X3.? No acute distress.? Head: Normocephalic, atraumatic, no step-offs or deformities Eyes: Pupils equal, round and reactive to light.? ENT: Pharynx normal.? Neck: Normal inspection.? Neck supple.? CVS: Normal heart rate and rhythm.? Pulses normal.? Respiratory: No respiratory distress.? Breath sounds normal.? Abdomen: Soft and very mild suprapubic abdominal discomfort. Normoactive bowel sounds throughout. Guerrero catheter in place with josh hematuria & clots .? Skin: Skin warm and dry.? Normal skin color.? Normal skin turgor.? Extremities: No lower extremity edema.? No calf ttp. Global weakness Neuro: Oriented X 3.? No motor deficit.? No sensory deficit. CN 2-12 intact Course Reevaluation(s) Reevaluation #1: CBC with a normocytic anemia appears to be around patient's baseline. Chemistry no acute findings requiring intervention. UA with large amounts of blood, trace bacteria --> ceftriaxone ordered. 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 Unchanged right-sided urolithiasis without evidence of acute right-sided obstructing uropathy. Multiple right renal calculi including a 2.8 cm staghorn calculi within the superior right renal pelvis and a 9 mm x 7 mm calculus at the right UPJ. Cholelithiasis. Trace left pleural effusion and minimal posterior dependent left based compressive atelectasis. [place] text out to Dr. Peck urology pending input. Time: 15:45 Reevaluation #2: Spoke to Dr. Peck who recommends admit to medicine, antibiotics unlikely procedure on Sunday. Time: 16:06 Medical Decision Making Medical Decision Making MDM Narrative: 78-year-old male presents with concerns of dark urine and pain with urination coming from assisted living facility Physical exam benign History and physical exam concerning for hematuria w/ clost and subsequent bladder spasms versus possible UTI versus cystitis. Unlikely pyelo, acute abdomen, obstructing uropathy. Will rule out acute blood loss anemia. Plan at this time labs, urine. Bladder irrigation will be done Differential Diagnosis Differential Diagnoses: The differential diagnosis associated with the presentation includes History and physical exam concerning for hematuria w/ clost and subsequent bladder spasms versus possible UTI versus cystitis. Unlikely pyelo, acute abdomen, obstructing uropathy. Will rule out acute blood loss anemia. Admission/Observation Consideration of admission/observation: Escalation of care including admission/observation considered Consult Healthcare Provider Management of the patient was discussed with: Locum Tenens Psychiatrist (urology ) Lab Data MDM Lab Attestation statement: I reviewed the patient's lab results. 12/08/23 13:36 12/08/23 13:36 Labs: Lab Results 12/08/23 12/08/23 Range/Units 13:36 13:58 WBC 9.0 (4.8-10.8) X10*3/uL RBC 3.88 L (4.60-5.80) X10*6/uL Hgb 12.0 L (14.0-18.0) g/dl Hct 36.2 L (42.0-52.0) % MCV 93.3 (80.0-98.0) fL MCH 30.9 (27.0-33.0) pg MCHC 33.1 (31.0-36.0) g/dl RDW 13.1 (11.0-16.0) % Plt Count 256 (160-400) X10*3/uL MPV 9.6 (9.4-12.4) fL Immature Gran % (Auto) 0.6 H (0.0-0.4) % Neut % (Auto) 76.2 H (45-73) % Lymph % (Auto) 11.6 L (20-40) % Hall % (Auto) 8.4 (2-11) % Eos % (Auto) 2.8 (0-4) % Baso % (Auto) 0.4 (0-2) % Lymph # (Auto) 1.0 L (1.2-4.9) X10*3/uL Hall # (Auto) 0.8 (0.1-1.2) X10*3/uL Eos # (Auto) 0.3 (0.0-0.4) X10*3/uL Baso # (Auto) 0.0 (0.0-0.2) X10*3/uL Abs Immat Gran (auto) 0.05 H (0.00-0.03) X10*3/uL Absolute Neuts (auto) 6.8 (2.0-8.3) x10*3/uL Absolute Nucleated RBC 0.000 (0.0-0.012) X10*3/uL Nucleated RBC % (auto) 0.0 (0.0-0.2) /100WBC PT 19.5 H (11.1-13.3) SEC INR 1.6 H (0.9-1.1) Sodium 142 (135-145) mmol/L Potassium 3.9 (3.3-5.1) mmol/L Chloride 108 (96-108) mmol/L Carbon Dioxide 26 (22-29) mmol/L Anion Gap 12 (12-20) BUN 16 (9-16) mg/dL Creatinine 1.12 (0.5-1.4) mg/dL Estim Creat Clear Calc 39.5 Estimated GFR > 60 Random Glucose 111 (60-115) mg/dL Lactic Acid 1.3 (0.5-2.0) mmol/L Calcium 9.1 D (8.4-10.2) mg/dL Magnesium 2.1 (1.6-2.6) mg/dL Total Bilirubin 0.3 (0.0-1.0) mg/dL AST 23 (5-37) U/L ALT 17 (0-40) U/L Alkaline Phosphatase 89 (39-117) U/L Total Protein 7.0 (6.5-8.0) g/dL Albumin 3.3 L (3.5-5.0) g/dL Urine Color RED Urine Appearance Cloudy Urine pH 6.5 (5.0-9.0) Ur Specific [place] 1.025 (1.005-1.025) Urine Protein 100 (2+) H (Neg-Trace) mg/dL Urine Glucose (UA) Negative (Negative) mg/dL Urine Ketones Negative (Negative) mg/dL Urine Blood Large (3+) H (Negative) Urine Nitrite Negative (Negative) Ur Leukocyte Esterase Moderate (2+) H (Negative) Urine RBC >20 H (0-2) /HPF Urine WBC 6-10 (0-5) /HPF Ur Squamous Epith Cells 0-2 (0-2) /HPF Urine Bacteria Trace (None Seen) Hyaline Casts 0-2 (0-2) /LPF Blood Type O Positive Antibody Screen NEGATIVE Independent Interpretation I performed an independent interpretation of an: CT Scan (CT/CT abdomen pelvis wo IV con IMPRESSION: 1. Findings suspicious for acute cystitis. Diffuse mural thickening of the urinary bladder wall with mild perivesicular fat reticulation suspicious for cystitis. Guerrero catheter terminating within the urinary bladder lumen. 2. Punctate foci of gas within t) Radiology Impression Discussion of test interpretation with radiology: I have reviewed the radiologist's reading. External Record Review External record reviewed: Inpatient record, Office record, Outpatient record, Prior outpatient labs, Prior outpatient radiology, Primary care record and Outside ED record Critical Care Time Critical Care Time Critical Care Time: Yes Total Critical Care Time: 45 Attestation: I attest to this time spent taking care of the patient, obtaining history, physical, reviewing labs, imaging, speaking to my attending, speaking to specialist. Discharge Plan Discharge Clinical Impression: Hematuria, Kidney calculi, Urinary tract infection Patient Disposition: Admitted As Inpatient Prescriptions: No Action Eliquis 5 mg tablet 5 mg PO BID lisinopril 5 mg tablet 5 mg PO DAILY cefuroxime axetil 250 mg tablet 250 mg PO BID 7 Days Qty: 14 0RF atorvastatin 80 mg tablet 80 mg PO BEDTIME metoprolol succinate 100 mg tablet extended release 24 hr 100 mg PO DAILY finasteride 5 mg tablet 5 mg PO DAILY
--- NOTE | 2023-12-08 13:40 | PC.NURSE ---
labs/urine obtained/sent to lab. 650ml of dark red/cloudy urine noted from wood catheter. bladder scan performed - displaying 0ml. pt waiting to go to CT at this time. no sob/wob noted. respirations even and unlabored. call collado placed within reach.
[2023-12-08 13:43] LABS: MANUAL DIFF FLAG NO
[2023-12-08 13:46] LABS: Basophils Percent Auto 0.4 % (0-2); Eosinophils Absolute Auto 0.3 X10*3/uL (0.0-0.4); Eosinophils Percent Auto 2.8 % (0-4); Hematocrit 36.2 % (42.0-52.0); Imm Gran Abs Auto 0.05 X10*3/uL (0.00-0.03); Imm Gran Pct Auto 0.6 % (0.0-0.4); Lymphocytes Percent Auto 11.6 % (20-40); Mean Corpuscular HGB Conc 33.1 g/dl (31.0-36.0); Mean Corpuscular Hemoglobin 30.9 pg (27.0-33.0); Mean Corpuscular Volume 93.3 fL (80.0-98.0); Mean Platelet Volume 9.6 fL (9.4-12.4); Monocytes Absolute Auto 0.8 X10*3/uL (0.1-1.2); Monocytes Percent Auto 8.4 % (2-11); Neutrophils Absolute Auto 6.8 x10*3/uL (2.0-8.3); Neutrophils Percent Auto 76.2 % (45-73); Platelet Count 256 X10*3/uL (160-400); Red Blood Count 3.88 X10*6/uL (4.60-5.80); Red Cell Distribution Width 13.1 % (11.0-16.0)
[2023-12-08 13:56] LABS: Appearance Urine Cloudy; Color Urine RED; Glucose Urine UA Negative (Negative); Leukocyte Esterase Urine Moderate (2+) (Negative); Nitrite Urine Negative (Negative); PH 6.5 (5.0-9.0); Specific Gravity - Urine 1.025 (1.005-1.025); UMIC TRIGGER UACC YES; Urine Blood Large (3+) (Negative); Urine Ketones Negative (Negative); Urine Protein 100 (2+) mg/dL (Neg-Trace)
[2023-12-08 13:58] LABS: Lactic Acid 1.3 mmol/L (0.5-2.0)
[2023-12-08 14:00] VITALS: BP 114/67; PULSE 78; RESP 18; TEMP 36.7; O2SAT 98
[2023-12-08 14:03] LABS: Alanine Aminotransferase 17 U/L (0-40); Albumin Level 3.3 g/dL (3.5-5.0); Alkaline Phosphatase 89 U/L (39-117); Anion Gap 12 (12-20); Aspartate Amino Transferase 23 U/L (5-37); Bilirubin Total 0.3 mg/dL (0.0-1.0); Blood Urea Nitrogen 16 mg/dL (9-16); Calcium 9.1 mg/dL (8.4-10.2); Carbon Dioxide 26 mmol/L (22-29); Chloride 108 mmol/L (96-108); Creatinine Clr Calc Pharmacy 39.5; Estimated Glomerular Filt Rate > 60; Glucose Random 111 mg/dL (60-115); Magnesium 2.1 mg/dL (1.6-2.6); Potassium 3.9 mmol/L (3.3-5.1); Sodium 142 mmol/L (135-145)
[2023-12-08 14:08] LABS: Bacteria Urine Trace (None Seen); Hyaline Casts Urine 0-2 /LPF (0-2); Squamous Epithelial Cell Urine 0-2 /HPF (0-2); UACC Culture Trigger YES
[2023-12-08 14:09] LABS: RBC Urine >20 /HPF (0-2)
[2023-12-08 14:13] LABS: INTERNATIONAL NORM RATIO 1.6 (0.9-1.1); Prothrombin Time 19.5 SEC (11.1-13.3)
[2023-12-08 15:25] VITALS: BP 125/64; PULSE 84; RESP 16; TEMP 36.4; O2SAT 98
--- NOTE | 2023-12-08 15:26 | PC.NURSE ---
vss and up to date. pt continues to rest in no apparent distress at this time. pt waiting for CT results. respirations remain even and unlabored. call collado placed within reach.
[2023-12-08] MEDS: cefTRIAXone sodium 1 GM in 0.9 % Sodium Chloride 50 ML IV (16:22)
--- NOTE | 2023-12-08 16:24 | P.HPHOSP_ITS ---
History of Present Illness Date of Service: 12/08/23 Chief Complaint: Hematuria The patient is an 78-year-old male with a history of PAD/claudication and SFA complete occlusion, which necessitated a right femoral cutdown and embolectomy in April 2023 and is on eliquis. He also has a medical history of hypertension (HTN), benign prostatic hyperplasia (BPH), hyperlipidemia (HLD), and is currently residing in [facility]. He was admitted to the hospital from 12/04/23 to 12/07/23 and treated for UTI, sepis, Bahman urinary retention with hydronephrosis and a wood cath was left in. He was treated with antibiotics and sepsis resolved. Urology recommended f/u with his urologist at [facility]. He was discharged just yesterday and comes back today because blood in wood catheter, appearance of dark red wine. Hemoglobin is 12, he is not septic. A CT of the abdomen is done again and show cystitis and unchanged right sided hydronephrosis Review of Systems 2 Review of Systems: blood in wood bag, no fever or chills, no abdominal pain, no chest pain, no sob, no dizziness [facility] Medical History PAD (peripheral artery disease) BPH (benign prostatic hyperplasia) HLD (hyperlipidemia) HTN (hypertension) Social History Housing: Assisted Living Facility Alcohol intake: never Patient Tobacco Use Status: Never used Tobacco Smoked in Last 30 Days: No Use of substances other than those prescribed or required for medical reasons: No Currently Displaying Signs/Symptoms of Drug Intoxication Withdrawal: No Advance Directives: No Advance Directives Information Provided: No Do you have thoughts of harming others: None Recently lost weight without trying: Unsure Nutrition Risks: No Nutritional Risk service: No Meds Allergies Allergy/AdvReac Type Severity Reaction Status Date / Time No Known Allergies Allergy Verified 12/08/23 12:26 Home Medications Medication Instructions Recorded Confirmed Last Taken Type atorvastatin 80 mg tablet 80 mg PO BEDTIME 04/09/23 12/08/23 12/03/23 History finasteride 5 mg tablet 5 mg PO DAILY 04/09/23 12/08/23 12/04/23 History metoprolol succinate 100 mg 100 mg PO DAILY 04/09/23 12/08/23 12/04/23 History tablet,extended release 24 hr apixaban 5 mg tablet (Eliquis) 5 mg PO BID 12/04/23 12/08/23 12/04/23 History lisinopril 5 mg tablet 5 mg PO DAILY 12/04/23 12/08/23 12/04/23 History aspirin 81 mg tablet,delayed 81 mg PO DAILY 12/08/23 12/08/23 Unknown History release ferrous sulfate 324 mg (65 mg 324 mg PO DAILY 12/08/23 12/08/23 Unknown History iron) tablet,delayed release Physical Exam 2 Vital Signs and Narrative: Vital Signs: Last Vital Signs Temp 97.6 F 12/08/23 15:25 Pulse 84 12/08/23 15:25 Resp 16 12/08/23 15:25 BP 125/64 12/08/23 15:25 Pulse Ox 98 12/08/23 15:25 O2 Del Method Room Air 12/08/23 15:25 BMI result Body Mass Index 20.1 Constitutional: Alert, in no distress, overweight. Mental Status: Oriented to person, place and time. Eyes: Pupils are equal, round and reactive to light. Ear, Nose and Throat: Oropharynx clear, mucous membranes moist. Respiratory: Clear to auscultation. No wheezing, rales or rhonchi. Cardiovascular: S1 S2 regular. No murmurs, rubs or gallops. Gastrointestinal: Abdomen soft, non-tender, non-distended. Normal bowel sounds.? : Wood in dark urine Neurologic: Cranial nerves II-XII grossly intact. No focal neurological deficits. Moves all extremities spontaneously.? Skin: No rashes or lesions.? Musculoskeletal: No cyanosis or clubbing. Psychiatric: Normal mood and affect? Results Labs 12/09/23 05:10 12/08/23 13:36 Labs: Laboratory Results - last 24 hr 12/08/23 12/08/23 13:36 13:58 MCV 93.3 MCH 30.9 MCHC 33.1 RDW 13.1 Plt Count 256 MPV 9.6 Immature Gran % (Auto) 0.6 H Neut % (Auto) 76.2 H Lymph % (Auto) 11.6 L [place] % (Auto) 8.4 Eos % (Auto) 2.8 Baso % (Auto) 0.4 Lymph # (Auto) 1.0 L [place] # (Auto) 0.8 Eos # (Auto) 0.3 Baso # (Auto) 0.0 Abs Immat Gran (auto) 0.05 H Absolute Neuts (auto) 6.8 Absolute Nucleated RBC 0.000 Nucleated RBC % (auto) 0.0 PT 19.5 H INR 1.6 H Anion Gap 12 Estim Creat Clear Calc 39.5 Estimated GFR > 60 Random Glucose 111 Lactic Acid 1.3 Calcium 9.1 D Magnesium 2.1 Total Bilirubin 0.3 AST 23 ALT 17 Alkaline Phosphatase 89 Total Protein 7.0 Albumin 3.3 L Urine Color RED Urine Appearance Cloudy Urine pH 6.5 Ur Specific [place] 1.025 Urine Protein 100 (2+) H Urine Glucose (UA) Negative Urine Ketones Negative Urine Blood Large (3+) H Urine Nitrite Negative Ur Leukocyte Esterase Moderate (2+) H Urine RBC >20 H Urine WBC 6-10 Ur Squamous Epith Cells 0-2 Urine Bacteria Trace Hyaline Casts 0-2 Blood Type O Positive Antibody Screen NEGATIVE Imaging Radiologist's Impressions: Impressions Abdomen/Pelvis CT 12/08/23 14:30 IMPRESSION: 1. Findings suspicious for acute cystitis. Diffuse mural thickening of the urinary bladder wall with mild perivesicular fat reticulation suspicious for cystitis. Wood catheter terminating within the urinary bladder lumen. 2. Punctate foci of gas within the posterior aspect of the prostate approximately 1.3 cm posterior to the prosthetic urethra. 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 Findings are new compared with 12/04/2023. 3. Unchanged right-sided urolithiasis without evidence of acute right-sided obstructive uropathy. Multiple right-sided renal calculi including a 2.8 cm staghorn calculus within the superior right renal pelvis and a 9 mm x 7 mm calculus at the right ureteropelvic junction. No right-sided hydronephrosis or perinephric inflammatory changes. Diffuse right renal atrophy. Unchanged 5 mm x 6 mm right ureteral calculus at the level L4-L5 without associated proximal ureterectasis. 4. Cholelithiasis. 5. Trace left pleural effusion and minimal posterior dependent left base compressive atelectasis. Assessment and Plan (1) Hematuria: Status: Acute (2) Kidney calculi: Status: Acute (3) HTN (hypertension): Status: Acute (4) Urinary tract infection: Status: Acute Plan 78/M BPH recent admit for UTI sepsis, BAHMAN, urianary retention with right sided hydronephrosis, he was discharged yesterday and comes back today with blood in the wood bag Hematuria--Urine on dark, there does not appear to be active bleed, hgb is 12. -hold eliquis -if actively bleeding will change to CBI -urology consulted and may need cysto UTI--last culture no growth responded to Ceftriaxone, restart on Ceftriaxone HTN--continue metoprolol, and hold lisinopril CKD--Cr within baseline History PAD, claudication, s/f SFA complete occlusion s/p embolectomy and was on eliquis -hold Eliquis in light of hematuria HLD--Lipitor BPH-- finesteride dvt prophylaxis--compression device given acute hematuria DNR/DNI.. MOLST in chart At least 2 midnights admit for Hematuria that needs monitoring of H/H and investigation of source of bleed Quality Stroke Does the patient have a stroke diagnosis?: No VTE Prior VTE?: No VTE Risk Level:: Medical - moderate - high VTE Device Contraindication: N/A - Device Ordered VTE Drug Contraindication: Treatment Not Tolerated (hematuria)
[2023-12-08 17:58] VITALS: BP 113/56; PULSE 72; RESP 16; TEMP 37; O2SAT 96
[2023-12-08 20:00] VITALS: BP 138/66; PULSE 87; RESP 18; TEMP 36.3; O2SAT 974
[2023-12-08] MEDS: Atorvastatin Calcium 80 MG TABLET PO (20:30)
[2023-12-08] MEDS: Acetaminophen 325 MG TABLET 650 MG PO (20:32)
[2023-12-09] MEDS: 0.9 % Sodium Chloride Flush 3 ML SYRINGE IVFLUSH ×3 (00:49→16:51)
[2023-12-09 03:33] VITALS: BP 126/59; PULSE 67; RESP 16; TEMP 36.2; O2SAT 97
[2023-12-09 05:32] LABS: MANUAL DIFF FLAG NO
[2023-12-09 05:49] LABS: Basophils Percent Auto 0.3 % (0-2); Eosinophils Absolute Auto 0.4 X10*3/uL (0.0-0.4); Hematocrit 35.3 % (42.0-52.0); Hemoglobin 11.3 g/dl (14.0-18.0); Imm Gran Abs Auto 0.06 X10*3/uL (0.00-0.03); Imm Gran Pct Auto 0.9 % (0.0-0.4); Lymphocytes Absolute Auto 1.4 X10*3/uL (1.2-4.9); Lymphocytes Percent Auto 20.4 % (20-40); Mean Corpuscular Hemoglobin 29.8 pg (27.0-33.0); Mean Corpuscular Volume 93.1 fL (80.0-98.0); Monocytes Absolute Auto 0.7 X10*3/uL (0.1-1.2); Monocytes Percent Auto 10.1 % (2-11); Neutrophils Absolute Auto 4.4 x10*3/uL (2.0-8.3); Neutrophils Percent Auto 63.3 % (45-73); Platelet Count 257 X10*3/uL (160-400); Red Blood Count 3.79 X10*6/uL (4.60-5.80); Red Cell Distribution Width 12.9 % (11.0-16.0)
[2023-12-09 06:51] VITALS: BP 113/59; PULSE 76; RESP 16; TEMP 36.6; O2SAT 98
[2023-12-09] MEDS: Metoprolol Succinate ER 100 MG TAB.ER.24H PO (09:05)
[2023-12-09] MEDS: Aspirin Enteric Coated 81 MG TABLET.DR PO (09:05)
[2023-12-09] MEDS: Finasteride 5 MG TABLET PO (09:05)
[2023-12-09] MEDS: Ferrous Sulfate 324 MG TABLET.DR PO (09:05)
[2023-12-09] MEDS: lisinopriL 5 MG TABLET PO (09:05)
--- NOTE | 2023-12-09 10:40 | HO.PM.IMPN ---
Subjective Subjective Date of Service: 12/10/23 Interval History: Follow-up on UTI, hematuria There is persistent hematuria but improving. Physical Exam Vital Signs: Vital Signs: Last Vital Signs Temp 97.8 F 12/09/23 06:51 Pulse 76 12/09/23 06:51 Resp 16 12/09/23 06:51 BP 113/59 L 12/09/23 06:51 Pulse Ox 98 12/09/23 06:51 O2 Del Method Room Air 12/09/23 06:51 BMI result Body Mass Index 20.1 General: AO X 3, no acute distress Resp: CTA bilateral CVS: S1,S2,RRR GI: +BS, NT, no distention Skin: No rash Neuro: motor grossly intact Psych: appropriate affect Objective Data Active Medications Acetaminophen (Acetaminophen 325 Mg Tablet) 650 mg PO Q6H PRN PRN Reason: Pain, Mild (Pain Scale 1-3) Last Admin: 12/08/23 20:32 Dose: 650 mg Documented By: MIGDALIA Aspirin (Aspirin Enteric Coated 81 Mg Tablet.) 81 mg PO DAILY [facility] Last Admin: 12/09/23 09:05 Dose: 81 mg Documented By: LADARIUS Atorvastatin Calcium (Atorvastatin Calcium 80 Mg Tablet) 80 mg PO BEDTIME [facility] Last Admin: 12/08/23 20:30 Dose: 80 mg Documented By: MIGDALIA Ferrous Sulfate (Ferrous Sulfate 324 Mg Tablet.) 324 mg PO DAILY [facility] Last Admin: 12/09/23 09:05 Dose: 324 mg Documented By: LADARIUS Finasteride (Finasteride 5 Mg Tablet) 5 mg PO DAILY [facility] Last Admin: 12/09/23 09:05 Dose: 5 mg Documented By: LADARIUS Lisinopril (Lisinopril 5 Mg Tablet) 5 mg PO DAILY [facility]; Protocol Last Admin: 12/09/23 09:05 Dose: 5 mg Documented By: LADARIUS Melatonin (Melatonin 3 Mg Tablet) 3 mg PO BEDTIME PRN PRN Reason: Insomnia Metoprolol Succinate (Metoprolol Succinate Er 100 Mg Tab.Er.24h) 100 mg PO DAILY [facility]; Protocol Last Admin: 12/09/23 09:05 Dose: 100 mg Documented By: LADARIUS Ondansetron HCl (Ondansetron Hcl 4 Mg/2 Ml Vial) 4 mg IVPUSH Q8H PRN PRN Reason: Nausea and Vomiting Sodium Chloride (0.9 % Sodium Chloride Flush 3 Ml Syringe) 3 ml IVFLUSH QSHIFT [facility] Last Admin: 12/09/23 09:07 Dose: 3 ml Documented By: LADARIUS Labs 12/09/23 05:10 12/08/23 13:36 Labs: Laboratory Results - last 24 hr 12/08/23 12/08/23 12/09/23 13:36 13:58 05:10 MCV 93.3 93.1 MCH 30.9 29.8 MCHC 33.1 32.0 RDW 13.1 12.9 Plt Count 256 257 MPV 9.6 9.0 L Immature Gran % (Auto) 0.6 H 0.9 H Neut % (Auto) 76.2 H 63.3 Lymph % (Auto) 11.6 L 20.4 [place] % (Auto) 8.4 10.1 Eos % (Auto) 2.8 5.0 H Baso % (Auto) 0.4 0.3 Lymph # (Auto) 1.0 L 1.4 [place] # (Auto) 0.8 0.7 Eos # (Auto) 0.3 0.4 Baso # (Auto) 0.0 0.0 Abs Immat Gran (auto) 0.05 H 0.06 H Absolute Neuts (auto) 6.8 4.4 Absolute Nucleated RBC 0.000 0.000 Nucleated RBC % (auto) 0.0 0.0 PT 19.5 H INR 1.6 H Anion Gap 12 Estim Creat Clear Calc 39.5 Estimated GFR > 60 Random Glucose 111 Lactic Acid 1.3 Calcium 9.1 D Magnesium 2.1 Total Bilirubin 0.3 AST 23 ALT 17 Alkaline Phosphatase 89 Total Protein 7.0 Albumin 3.3 L Urine Color RED Urine Appearance Cloudy Urine pH 6.5 Ur Specific [place] 1.025 Urine Protein 100 (2+) H Urine Glucose (UA) Negative Urine Ketones Negative Urine Blood Large (3+) H Urine Nitrite Negative Ur Leukocyte Esterase Moderate (2+) H Urine RBC >20 H Urine WBC 6-10 Ur Squamous Epith Cells 0-2 Urine Bacteria Trace Hyaline Casts 0-2 Blood Type O Positive Antibody Screen NEGATIVE Assessment and Plan (1) Kidney calculi: Status: Acute (2) Hematuria: Status: Acute (3) BPH (benign prostatic hyperplasia): Status: Acute (4) Urinary tract infection: Status: Acute Plan 78/M BPH recent admit for UTI sepsis, STEPHANE, urianary retention with right sided hydronephrosis, he was discharged yesterday and comes back today with blood in the wood bag Hematuria--Urine on dark, there does not appear to be active bleed, hgb was 12, now 11 -hold eliquis -if actively bleeding will change to CBI -urology consulted and may need cysto UTI--last culture no growth responded to Ceftriaxone, continue Ceftriaxone HTN--continue metoprolol, and hold lisinopril CKD--Cr within baseline History PAD, claudication, s/f SFA complete occlusion s/p embolectomy and was on eliquis -hold Eliquis in light of hematuria HLD--Lipitor BPH-- finesteride dvt prophylaxis--compression device given acute hematuria DNR/DNI.. MOLST in chart At least 2 midnights admit for Hematuria that needs monitoring of H/H and investigation of source of bleed Quality Stroke Does the patient have a stroke diagnosis?: No VTE Prior VTE?: No VTE Risk Level:: Medical - moderate - high VTE Device Contraindication: N/A - Device Ordered VTE Drug Contraindication: Treatment Not Tolerated
--- NOTE | 2023-12-09 11:00 | MHC.CM.PN ---
pt lives at [facility] assisted [facility] he has housekeeping 1 x weekly expected to need help w/ transportaion back to [facility]
[2023-12-09 15:24] VITALS: BP 129/65; PULSE 76; RESP 17; TEMP 36.3; O2SAT 95
[2023-12-09] MEDS: cefTRIAXone sodium 1 GM in 0.9 % Sodium Chloride 50 ML IV (16:47)
[2023-12-09 19:44] VITALS: BP 131/65; PULSE 76; RESP 17; TEMP 36.4; O2SAT 97
[2023-12-09] MEDS: Atorvastatin Calcium 80 MG TABLET PO (20:58)
[2023-12-10] MEDS: 0.9 % Sodium Chloride Flush 3 ML SYRINGE IVFLUSH ×3 (00:35→16:46)
[2023-12-10 03:56] VITALS: BP 120/60; PULSE 73; RESP 16; TEMP 36; O2SAT 94
[2023-12-10 07:18] VITALS: BP 133/61; PULSE 74; RESP 12; TEMP 36.2; O2SAT 97
[2023-12-10] MEDS: Ferrous Sulfate 324 MG TABLET.DR PO (09:36)
[2023-12-10] MEDS: Metoprolol Succinate ER 100 MG TAB.ER.24H PO (09:36)
[2023-12-10] MEDS: Finasteride 5 MG TABLET PO (09:36)
[2023-12-10] MEDS: lisinopriL 5 MG TABLET PO (09:36)
[2023-12-10] MEDS: Aspirin Enteric Coated 81 MG TABLET.DR PO (09:36)
--- NOTE | 2023-12-10 09:56 | HO.PM.IMPN ---
Subjective Subjective Date of Service: 12/10/23 Interval History: Follow-up on UTI, hematuria hematuria resolved. Physical Exam Vital Signs: Vital Signs: Last Vital Signs Temp 97.2 F 12/10/23 07:18 Pulse 74 12/10/23 07:18 Resp 12 12/10/23 07:18 BP 133/61 12/10/23 07:18 Pulse Ox 97 12/10/23 07:18 O2 Del Method Room Air 12/10/23 07:18 BMI result Body Mass Index 20.1 Objective Data Active Medications Acetaminophen (Acetaminophen 325 Mg Tablet) 650 mg PO Q6H PRN PRN Reason: Pain, Mild (Pain Scale 1-3) Last Admin: 12/08/23 20:32 Dose: 650 mg Documented By: MIGDALIA Aspirin (Aspirin Enteric Coated 81 Mg Tablet.) 81 mg PO DAILY [facility] Last Admin: 12/10/23 09:36 Dose: 81 mg Documented By: KRISHNA Atorvastatin Calcium (Atorvastatin Calcium 80 Mg Tablet) 80 mg PO BEDTIME [facility] Last Admin: 12/09/23 20:58 Dose: 80 mg Documented By: LI Ferrous Sulfate (Ferrous Sulfate 324 Mg Tablet.) 324 mg PO DAILY [facility] Last Admin: 12/10/23 09:36 Dose: 324 mg Documented By: KRISHNA Finasteride (Finasteride 5 Mg Tablet) 5 mg PO DAILY [facility] Last Admin: 12/10/23 09:36 Dose: 5 mg Documented By: KRISHNA Ceftriaxone Sodium 1 gm/ (Sodium Chloride) 50 mls @ 100 mls/hr IV Q24H [facility] Last Infusion: 12/09/23 17:26 Dose: Infused Documented By: LADARIUS Lisinopril (Lisinopril 5 Mg Tablet) 5 mg PO DAILY [facility]; Protocol Last Admin: 12/10/23 09:36 Dose: 5 mg Documented By: KRISHNA Melatonin (Melatonin 3 Mg Tablet) 3 mg PO BEDTIME PRN PRN Reason: Insomnia Metoprolol Succinate (Metoprolol Succinate Er 100 Mg Tab.Er.24h) 100 mg PO DAILY [facility]; Protocol Last Admin: 12/10/23 09:36 Dose: 100 mg Documented By: KRISHNA Ondansetron HCl (Ondansetron Hcl 4 Mg/2 Ml Vial) 4 mg IVPUSH Q8H PRN PRN Reason: Nausea and Vomiting Sodium Chloride (0.9 % Sodium Chloride Flush 3 Ml Syringe) 3 ml IVFLUSH QSHIFT [facility] Last Admin: 12/10/23 09:36 Dose: 3 ml Documented By: KRISHNA Labs 12/09/23 05:10 12/08/23 13:36 Microbiology Microbiology Results: Microbiology 12/08/23 13:57 Blood Culture - Preliminary Blood - Venous No growth after 24 hours. 12/08/23 13:36 Blood Culture - Preliminary Blood - Venous No growth after 24 hours. 12/08/23 Unknown Urine Culture - Preliminary Urine Catheterized - Wood Catheter Culture in progress. Assessment and Plan (1) Kidney calculi: Status: Acute (2) Hematuria: Status: Acute (3) BPH (benign prostatic hyperplasia): Status: Acute (4) Urinary tract infection: Status: Acute Plan 78/M BPH recent admit for UTI sepsis, STEPHANE, urianary retention with right sided hydronephrosis, he was discharged yesterday and comes back today with blood in the wood bag Hematuria--Urine on dark, there does not appear to be active bleed, hgb was 12, now 11 -hold eliquis -if actively bleeding will change to CBI -urology consulted and may need cysto UTI--last culture no growth responded to Ceftriaxone, continue Ceftriaxone HTN--continue metoprolol, and hold lisinopril CKD--Cr within baseline History PAD, claudication, s/f SFA complete occlusion s/p embolectomy and was on eliquis -hold Eliquis in light of hematuria HLD--Lipitor BPH-- finesteride dvt prophylaxis--compression device given acute hematuria DNR/DNI.. MOLST in chart At least 2 midnights admit for Hematuria that needs monitoring of H/H and investigation of source of bleed Quality Stroke Does the patient have a stroke diagnosis?: No VTE Prior VTE?: No VTE Risk Level:: Medical - moderate - high VTE Device Contraindication: N/A - Device Ordered VTE Drug Contraindication: Treatment Not Tolerated
[2023-12-10 12:10] VITALS: PULSE 87; O2SAT 97
--- NOTE | 2023-12-10 13:41 | MHC.CM.PN ---
Per MD rounds no dc today. A consult is pending. DP return to [facility]. Patient may need assist with transport.
[2023-12-10 15:11] VITALS: BP 116/56; PULSE 82; RESP 14; TEMP 36.1; O2SAT 95
[2023-12-10] MEDS: cefTRIAXone sodium 1 GM in 0.9 % Sodium Chloride 50 ML IV (16:46)
[2023-12-10 19:37] VITALS: BP 136/60; PULSE 76; RESP 16; TEMP 36.1; O2SAT 96
[2023-12-10] MEDS: Atorvastatin Calcium 80 MG TABLET PO (20:11)
[2023-12-11] MEDS: 0.9 % Sodium Chloride Flush 3 ML SYRINGE IVFLUSH ×3 (00:09→16:16)
[2023-12-11 04:00] VITALS: BP 104/55; PULSE 74; RESP 16; TEMP 36.6; O2SAT 97
[2023-12-11 07:44] VITALS: BP 123/64; PULSE 75; RESP 18; TEMP 36.9; O2SAT 95
[2023-12-11] MEDS: Ferrous Sulfate 324 MG TABLET.DR PO (09:09)
[2023-12-11] MEDS: lisinopriL 5 MG TABLET PO (09:09)
[2023-12-11] MEDS: Aspirin Enteric Coated 81 MG TABLET.DR PO (09:09)
[2023-12-11] MEDS: Finasteride 5 MG TABLET PO (09:09)
[2023-12-11] MEDS: Metoprolol Succinate ER 100 MG TAB.ER.24H PO (09:11)
--- NOTE | 2023-12-11 09:57 | HO.PM.IMPN ---
Subjective Subjective Date of Service: 12/11/23 Interval History: Follow-up on UTI, hematuria hematuria resolved. Urine culture growing resistant Pseudomonas Physical Exam Vital Signs: Vital Signs: Last Vital Signs Temp 98.4 F 12/11/23 07:44 Pulse 75 12/11/23 07:44 Resp 18 12/11/23 07:44 BP 123/64 12/11/23 07:44 Pulse Ox 95 12/11/23 07:44 O2 Del Method Room Air 12/11/23 07:44 BMI result Body Mass Index 20.1 Objective Data Active Medications Acetaminophen (Acetaminophen 325 Mg Tablet) 650 mg PO Q6H PRN PRN Reason: Pain, Mild (Pain Scale 1-3) Last Admin: 12/08/23 20:32 Dose: 650 mg Documented By: MIGDALIA Aspirin (Aspirin Enteric Coated 81 Mg Tablet.) 81 mg PO DAILY [facility] Last Admin: 12/11/23 09:09 Dose: 81 mg Documented By: YOLY Atorvastatin Calcium (Atorvastatin Calcium 80 Mg Tablet) 80 mg PO BEDTIME [facility] Last Admin: 12/10/23 20:11 Dose: 80 mg Documented By: MIGDALIA Ferrous Sulfate (Ferrous Sulfate 324 Mg Tablet.) 324 mg PO DAILY [facility] Last Admin: 12/11/23 09:09 Dose: 324 mg Documented By: YOLY Finasteride (Finasteride 5 Mg Tablet) 5 mg PO DAILY [facility] Last Admin: 12/11/23 09:09 Dose: 5 mg Documented By: YOLY Meropenem 1 gm/ Sodium (Chloride) 100 mls @ 200 mls/hr IV Q12H [facility] Last Infusion: 12/11/23 09:42 Dose: Infused Documented By: YOLY Lisinopril (Lisinopril 5 Mg Tablet) 5 mg PO DAILY [facility]; Protocol Last Admin: 12/11/23 09:09 Dose: 5 mg Documented By: YOLY Melatonin (Melatonin 3 Mg Tablet) 3 mg PO BEDTIME PRN PRN Reason: Insomnia Metoprolol Succinate (Metoprolol Succinate Er 100 Mg Tab.Er.24h) 100 mg PO DAILY [facility]; Protocol Last Admin: 12/11/23 09:11 Dose: 100 mg Documented By: YOLY Ondansetron HCl (Ondansetron Hcl 4 Mg/2 Ml Vial) 4 mg IVPUSH Q8H PRN PRN Reason: Nausea and Vomiting Sodium Chloride (0.9 % Sodium Chloride Flush 3 Ml Syringe) 3 ml IVFLUSH QSHIFT [facility] Last Admin: 12/11/23 09:11 Dose: 3 ml Documented By: YOLY Labs 12/09/23 05:10 12/08/23 13:36 Microbiology Microbiology Results: Microbiology 12/08/23 Unknown Urine Culture - Final Urine Catheterized - Wood Catheter Pseudomonas aeruginosa 12/08/23 13:57 Blood Culture - Preliminary Blood - Venous No growth after 48 hours. 12/08/23 13:36 Blood Culture - Preliminary Blood - Venous No growth after 48 hours. Assessment and Plan (1) Kidney calculi: Status: Acute (2) Hematuria: Status: Acute (3) BPH (benign prostatic hyperplasia): Status: Acute (4) Urinary tract infection: Status: Acute Plan 78/M BPH recent admit for UTI sepsis, STEPHANE, urianary retention with right sided hydronephrosis, he was discharged yesterday and comes back today with blood in the wood bag Hematuria--Urine on dark, there does not appear to be active bleed, hgb was 12, now 11 -hold eliquis -if actively bleeding will change to CBI -urology consulted and may need cysto UTI--Has been on Ceftriaxone, culture now growing Pseudomoas -Change Ceftriaxone to Meropenem, ID consult HTN--continue metoprolol, and hold lisinopril CKD--Cr within baseline History PAD, claudication, s/f SFA complete occlusion s/p embolectomy and was on eliquis -holding Eliquis in light of hematuria HLD--Lipitor BPH-- finesteride dvt prophylaxis--compression device given acute hematuria DNR/DNI.. MOLST in chart need for inpatient for Hematuria that needs monitoring of H/H and investigation of source of bleed Quality Stroke Does the patient have a stroke diagnosis?: No VTE Prior VTE?: No VTE Risk Level:: Medical - moderate - high VTE Device Contraindication: N/A - Device Ordered VTE Drug Contraindication: Treatment Not Tolerated
[2023-12-11 10:47] LABS: Hematocrit 38.6 % (42.0-52.0); Hemoglobin 12.5 g/dl (14.0-18.0); Mean Corpuscular HGB Conc 32.4 g/dl (31.0-36.0); Mean Corpuscular Hemoglobin 29.8 pg (27.0-33.0); Mean Corpuscular Volume 91.9 fL (80.0-98.0); Mean Platelet Volume 8.5 fL (9.4-12.4); Platelet Count 301 X10*3/uL (160-400); Red Cell Distribution Width 12.6 % (11.0-16.0); White Blood Count 10.4 X10*3/uL (4.8-10.8)
[2023-12-11 11:05] LABS: Anion Gap 8 (12-20); Blood Urea Nitrogen 19 mg/dL (9-16); Calcium 8.4 mg/dL (8.4-10.2); Carbon Dioxide 26 mmol/L (22-29); Chloride 108 mmol/L (96-108); Creatinine Clr Calc Pharmacy 42.5; Estimated Glomerular Filt Rate > 60; Glucose Random 113 mg/dL (60-115); Potassium 4.3 mmol/L (3.3-5.1); Sodium 138 mmol/L (135-145)
--- NOTE | 2023-12-11 15:08 | P.CNID_ITS ---
History of Present Illness Data of Consult Service Date: 12/11/23 Requesting physician: Perry Ward Primary Care Provider: MD CLARK Tee Reason for consult: Urinary infection,resistant Pseudomonas He presents with dark urine and dysuria for eight days. He was at ER on 12/04 from assisted living an had fatigue,malaise ,urinary urgency and frequency. He received Cefuroxime 250 mg bid for seven days and didnt feel better. He had hematuria and came back. Urine shows resistant Pseudomonas, intermediate to Merepenem. Review of Systems 2 Review of Systems: Yes all other systems are reviewed and are negative Genitourinary: Genitourinary: Reports change in libido and Reports dysuria Psychiatric: Psychiatric: Reports change in libido Endocrine: Endocrine: Reports change in libido [facility] Past Medical History Medical History PAD (peripheral artery disease) BPH (benign prostatic hyperplasia) HLD (hyperlipidemia) HTN (hypertension) Social History Social History Housing: Assisted Living Facility Alcohol intake: never Patient Tobacco Use Status: Never used Tobacco Smoked in Last 30 Days: No Use of substances other than those prescribed or required for medical reasons: No Currently Displaying Signs/Symptoms of Drug Intoxication Withdrawal: No Advance Directives: No Advance Directives Information Provided: No Do you have thoughts of harming others: None Recently lost weight without trying: Unsure Nutrition Risks: No Nutritional Risk service: No Meds Allergies Allergy/AdvReac Type Severity Reaction Status Date / Time No Known Allergies Allergy Verified 12/08/23 12:26 Active Medications: Current Medications Acetaminophen (Acetaminophen 325 Mg Tablet) 650 mg PO Q6H PRN PRN Reason: Pain, Mild (Pain Scale 1-3) Last Admin: 12/08/23 20:32 Dose: 650 mg Aspirin (Aspirin Enteric Coated 81 Mg Tablet.) 81 mg PO DAILY [facility] Last Admin: 12/11/23 09:09 Dose: 81 mg Atorvastatin Calcium (Atorvastatin Calcium 80 Mg Tablet) 80 mg PO BEDTIME [facility] Last Admin: 12/10/23 20:11 Dose: 80 mg Ferrous Sulfate (Ferrous Sulfate 324 Mg Tablet.) 324 mg PO DAILY [facility] Last Admin: 12/11/23 09:09 Dose: 324 mg Finasteride (Finasteride 5 Mg Tablet) 5 mg PO DAILY [facility] Last Admin: 12/11/23 09:09 Dose: 5 mg Meropenem 1 gm/ Sodium (Chloride) 100 mls @ 200 mls/hr IV Q12H [facility] Last Infusion: 12/11/23 09:42 Dose: Infused Meropenem/Vaborbactam 4 gm/ (Sodium Chloride) 250 mls @ 83.333 mls/hr IV Q8H [facility] Lisinopril (Lisinopril 5 Mg Tablet) 5 mg PO DAILY [facility]; Protocol Last Admin: 12/11/23 09:09 Dose: 5 mg Melatonin (Melatonin 3 Mg Tablet) 3 mg PO BEDTIME PRN PRN Reason: Insomnia Metoprolol Succinate (Metoprolol Succinate Er 100 Mg Tab.Er.24h) 100 mg PO DAILY [facility]; Protocol Last Admin: 12/11/23 09:11 Dose: 100 mg Ondansetron HCl (Ondansetron Hcl 4 Mg/2 Ml Vial) 4 mg IVPUSH Q8H PRN PRN Reason: Nausea and Vomiting Sodium Chloride (0.9 % Sodium Chloride Flush 3 Ml Syringe) 3 ml IVFLUSH QSHIFT [facility] Last Admin: 12/11/23 09:11 Dose: 3 ml Home Medications Medication Instructions Recorded Confirmed Last Taken Type atorvastatin 80 mg tablet 80 mg PO BEDTIME 04/09/23 12/08/23 12/03/23 History finasteride 5 mg tablet 5 mg PO DAILY 04/09/23 12/08/23 12/04/23 History metoprolol succinate 100 mg 100 mg PO DAILY 04/09/23 12/08/23 12/04/23 History tablet,extended release 24 hr apixaban 5 mg tablet (Eliquis) 5 mg PO BID 12/04/23 12/08/23 12/04/23 History lisinopril 5 mg tablet 5 mg PO DAILY 12/04/23 12/08/23 12/04/23 History aspirin 81 mg tablet,delayed 81 mg PO DAILY 12/08/23 12/08/23 Unknown History release ferrous sulfate 324 mg (65 mg 324 mg PO DAILY 12/08/23 12/08/23 Unknown History iron) tablet,delayed release Physical Exam 2 Vital Signs: Vital Signs: Last Vital Signs Temp 98.4 F 12/11/23 07:44 Pulse 75 12/11/23 07:44 Resp 18 12/11/23 07:44 BP 123/64 12/11/23 07:44 Pulse Ox 95 12/11/23 07:44 O2 Del Method Room Air 12/11/23 07:44 BMI result Body Mass Index 20.1 Const: General: cooperative HEENT: Head: Yes normal to inspection Face and sinus: Yes normal facial exam Mouth: Normal oral and palatal mucosa present Teeth and gingiva: d entition normal Eyes: General: appearance normal, both eyes and all related structures P upils: Equal, round and reactive pupils present Resp: Effort & Inspection: normal respiratory effort Cardio: Rate: regular rate Rhythm: regular rhythm GI: Palpation (GI): Soft to palpation and nontender : General: Yes no CVA tenderness Back/Spine/Pelvis: Back: no CVA tenderness Skin: General skin exam: no rashes or lesions noted Neuro: General: moves all extremities Cranial nerves: Yes Equal, round and reactive pupils present Extrem: General: Yes normal to inspection Psych: Appearance: grossly normal Results Labs 12/11/23 10:39 12/11/23 10:39 Labs: Short CBC 12/11/23 Range/Units 10:39 WBC 10.4 (4.8-10.8) X10*3/uL Hgb 12.5 L (14.0-18.0) g/dl Hct 38.6 L (42.0-52.0) % Plt Count 301 (160-400) X10*3/uL BMP 12/11/23 10:39 Sodium 138 Potassium 4.3 Chloride 108 Carbon Dioxide 26 BUN 19 H Creatinine 1.04 Calcium 8.4 D Microbiology Microbiology Results: Microbiology 12/08/23 Unknown Urine Catheterized - Guerrero Catheter Urine Culture - Final Pseudomonas aeruginosa 12/08/23 13:57 Blood - Venous Blood Culture - Preliminary No growth after 48 hours. 12/08/23 13:36 Blood - Venous Blood Culture - Preliminary No growth after 48 hours. Assessment and Plan (1) Hematuria: Status: Acute (2) BPH (benign prostatic hyperplasia): Status: Acute Plan He has urinary tract infection with resistant Pseudomonas and is symptomatic I discussed with Pharmacy and he will receive IV Vabomere (meropenem and vaborbactam) which likely senstive to. Renal dosing per pharmacy. Will send culture for sensis if able. Treatment 7-10 days Follow Urology
[2023-12-11 15:12] VITALS: BP 122/57; PULSE 72; RESP 18; TEMP 37.4; O2SAT 97
[2023-12-11 19:14] VITALS: BP 123/62; PULSE 78; RESP 18; TEMP 36.8; O2SAT 96
[2023-12-11] MEDS: Atorvastatin Calcium 80 MG TABLET PO (19:45)
[2023-12-12] MEDS: 0.9 % Sodium Chloride Flush 3 ML SYRINGE IVFLUSH ×3 (00:59→21:16)
[2023-12-12 04:00] VITALS: BP 119/64; PULSE 71; RESP 16; TEMP 36.2; O2SAT 95
--- NOTE | 2023-12-12 04:32 | PC.NURSE ---
Compound IVABX mix scheduled for this patient had a time change due to previous time administered/completed. 0000 dose to 0400 and when bag scanned it showed unable as medication discontinued as refrigerated bag had 0000 scan code. Change was by night pharmacy after call placed concerning times. infusion rate of 3 hours noted.
[2023-12-12 07:45] VITALS: BP 125/58; PULSE 72; RESP 18; TEMP 36.2; O2SAT 96
[2023-12-12] MEDS: lisinopriL 5 MG TABLET PO (09:12)
[2023-12-12] MEDS: Metoprolol Succinate ER 100 MG TAB.ER.24H PO (09:12)
[2023-12-12] MEDS: Ferrous Sulfate 324 MG TABLET.DR PO (09:12)
[2023-12-12] MEDS: Aspirin Enteric Coated 81 MG TABLET.DR PO (09:12)
[2023-12-12] MEDS: Finasteride 5 MG TABLET PO (09:13)
--- NOTE | 2023-12-12 10:20 | P.PNIM_ITS ---
Subjective Subjective Date of Service: 12/12/23 Interval History: Seen and evaluated this morning bloody tinged urine in bag denies any fever or chills no overnight events Review of Systems Review of Systems: Yes all other systems are reviewed and are negative Physical Exam 2 Vital Signs: Vital Signs: Last Vital Signs Temp 97.1 F 12/12/23 07:45 Pulse 72 12/12/23 07:45 Resp 18 12/12/23 07:45 BP 125/58 L 12/12/23 07:45 Pulse Ox 96 12/12/23 07:45 O2 Del Method Room Air 12/12/23 07:45 BMI result Body Mass Index 20.1 Const: Other: Constitutional : Awake, interactive, not in distress Neck : Normal inspection, Supple Cardiovascular : RRR, no JVP, no lower extremity edema Respiratory : good bilateral air entry, no crackles, wheezes or rhonchi Gastrointestinal: soft, lax, Normal bowel sounds, Non tender Skin : Warm, Dry, Wood in place with bloody tinged urine Neurological : Alert & oriented x3, No focal deficit Objective Data Active Medications Acetaminophen (Acetaminophen 325 Mg Tablet) 650 mg PO Q6H PRN PRN Reason: Pain, Mild (Pain Scale 1-3) Last Admin: 12/08/23 20:32 Dose: 650 mg Documented By: MIGDALIA Aspirin (Aspirin Enteric Coated 81 Mg Tablet.) 81 mg PO DAILY [facility] Last Admin: 12/12/23 09:12 Dose: 81 mg Documented By: HERO Atorvastatin Calcium (Atorvastatin Calcium 80 Mg Tablet) 80 mg PO BEDTIME [facility] Last Admin: 12/11/23 19:45 Dose: 80 mg Documented By: HERO Ferrous Sulfate (Ferrous Sulfate 324 Mg Tablet.) 324 mg PO DAILY [facility] Last Admin: 12/12/23 09:12 Dose: 324 mg Documented By: HERO Finasteride (Finasteride 5 Mg Tablet) 5 mg PO DAILY [facility] Last Admin: 12/12/23 09:13 Dose: 5 mg Documented By: HERO Meropenem/Vaborbactam 4 gm/ (Sodium Chloride) 250 mls @ 83.333 mls/hr IV Q8H [facility] Last Infusion: 12/12/23 07:35 Dose: Infused Documented By: HERO Lisinopril (Lisinopril 5 Mg Tablet) 5 mg PO DAILY [facility]; Protocol Last Admin: 12/12/23 09:12 Dose: 5 mg Documented By: HERO Melatonin (Melatonin 3 Mg Tablet) 3 mg PO BEDTIME PRN PRN Reason: Insomnia Metoprolol Succinate (Metoprolol Succinate Er 100 Mg Tab.Er.24h) 100 mg PO DAILY [facility]; Protocol Last Admin: 12/12/23 09:12 Dose: 100 mg Documented By: HERO Ondansetron HCl (Ondansetron Hcl 4 Mg/2 Ml Vial) 4 mg IVPUSH Q8H PRN PRN Reason: Nausea and Vomiting Sodium Chloride (0.9 % Sodium Chloride Flush 3 Ml Syringe) 3 ml IVFLUSH QSHIFT [facility] Last Admin: 12/12/23 09:15 Dose: 3 ml Documented By: HERO Labs 12/11/23 10:39 12/11/23 10:39 Labs: Laboratory Results - last 24 hr 12/11/23 10:39 MCV 91.9 MCH 29.8 MCHC 32.4 RDW 12.6 Plt Count 301 MPV 8.5 L Absolute Nucleated RBC 0.000 Nucleated RBC % (auto) 0.0 Anion Gap 8 L Estim Creat Clear Calc 42.5 Estimated GFR > 60 Random Glucose 113 Calcium 8.4 D Microbiology Microbiology Results: Microbiology 12/08/23 Unknown Urine Culture - Final Urine Catheterized - Wood Catheter Pseudomonas aeruginosa Assessment and Plan (1) Hematuria: Status: Acute (2) Urinary tract infection: Status: Acute (3) Infection due to ESBL-producing Escherichia coli: Status: Acute Plan 78/M BPH recent admit for UTI sepsis, STEPHANE, urianary retention with right sided hydronephrosis, he was discharged yesterday and comes back today with blood in the wood bag Hematuria No active bleeding, some tinged blood overnight continue to hold eliquis Actively bleeding will change to CBI Urology consulted and may need cysto UTI Has been on Ceftriaxone, culture now growing Pseudomoas ID consult, 7-10 days IV Vabomere (Meropenem and Vaborbactam) will need a Midline likely HTN continue metoprolol, and hold lisinopril CKD Cr within baseline History PAD, claudication, s/f SFA complete occlusion s/p embolectomy and was on eliquis holding Eliquis in light of hematuria HLD--Lipitor BPH-- finesteride dvt prophylaxis--compression device given acute hematuria DNR/DNI.. MOLST in chart need for inpatient for Hematuria that needs monitoring of H/H and investigation of source of bleed along with IV Antibiotics for ESBL UTI. Quality Stroke Does the patient have a stroke diagnosis?: No VTE Prior VTE?: No VTE Risk Level:: Medical - moderate - high VTE Device Contraindication: N/A - Device Ordered VTE Drug Contraindication: Treatment Not Tolerated
[2023-12-12 15:24] VITALS: BP 108/56; PULSE 81; RESP 16; TEMP 36.3; O2SAT 98
--- NOTE | 2023-12-12 15:49 | MHC.CM.PN ---
Per MD rounds patient with need to discharge to a facility for IV ABX 8-10 days. [facility] was referred. A request to use free days was made. Clinical info has been sent to the facility. They are reviewing the clinical information. [facility] IV ABX @ [facility]. [facility] via BLS pending bed offer.
--- NOTE | 2023-12-12 18:47 | PC.NURSE ---
Per provider's order - wood removed at 1350, at 1830 patient was able to void 150ml dark red urine with small clots, bladder scan -PVR 82ml.
[2023-12-12 19:29] VITALS: BP 121/58; PULSE 80; RESP 16; TEMP 36.7; O2SAT 96
[2023-12-12] MEDS: Atorvastatin Calcium 80 MG TABLET PO (21:16)
[2023-12-13 03:30] VITALS: BP 122/63; PULSE 75; RESP 16; TEMP 36.3; O2SAT 94
[2023-12-13 05:24] LABS: Hemoglobin 11.6 g/dl (14.0-18.0); Mean Corpuscular HGB Conc 32.2 g/dl (31.0-36.0); Mean Corpuscular Hemoglobin 29.7 pg (27.0-33.0); Mean Corpuscular Volume 92.1 fL (80.0-98.0); Mean Platelet Volume 8.3 fL (9.4-12.4); Platelet Count 309 X10*3/uL (160-400); Red Blood Count 3.91 X10*6/uL (4.60-5.80); Red Cell Distribution Width 12.9 % (11.0-16.0); White Blood Count 9.2 X10*3/uL (4.8-10.8)
[2023-12-13 05:38] LABS: Anion Gap 8 (12-20); Blood Urea Nitrogen 25 mg/dL (9-16); Calcium 8.5 mg/dL (8.4-10.2); Carbon Dioxide 26 mmol/L (22-29); Chloride 108 mmol/L (96-108); Creatinine Clr Calc Pharmacy 40.2; Estimated Glomerular Filt Rate > 60; Glucose Random 100 mg/dL (60-115); Potassium 4.2 mmol/L (3.3-5.1); Sodium 138 mmol/L (135-145)
--- NOTE | 2023-12-13 07:04 | PC.NURSE ---
Assumed care of patient at midnight. See shift assessment and EMAR for full details. Handoff report given 06:45 to oncoming RN.
[2023-12-13 07:35] VITALS: BP 129/60; PULSE 68; RESP 18; TEMP 36.2; O2SAT 97
[2023-12-13] MEDS: Ferrous Sulfate 324 MG TABLET.DR PO (09:20)
[2023-12-13] MEDS: Aspirin Enteric Coated 81 MG TABLET.DR PO (09:21)
[2023-12-13] MEDS: Metoprolol Succinate ER 100 MG TAB.ER.24H PO (09:22)
[2023-12-13] MEDS: lisinopriL 5 MG TABLET PO (09:22)
[2023-12-13] MEDS: Finasteride 5 MG TABLET PO (09:23)
[2023-12-13] MEDS: 0.9 % Sodium Chloride Flush 3 ML SYRINGE IVFLUSH ×2 (09:24→20:06)
--- NOTE | 2023-12-13 13:19 | HO.PM.IMPN ---
Subjective Subjective Date of Service: 12/13/23 Interval History: Seen and evaluated this morning Wood removed no hematuria denies any fever or chills no overnight events Review of Systems Review of Systems: Yes all other systems are reviewed and are negative Physical Exam Vital Signs: Vital Signs: Last Vital Signs Temp 97.1 F 12/13/23 07:35 Pulse 68 12/13/23 07:35 Resp 18 12/13/23 07:35 BP 129/60 12/13/23 07:35 Pulse Ox 97 12/13/23 07:35 O2 Del Method Room Air 12/13/23 07:35 BMI result Body Mass Index 20.1 Const: Other: Constitutional : Awake, interactive, not in distress Neck : Normal inspection, Supple Cardiovascular : RRR, no JVP, no lower extremity edema Respiratory : good bilateral air entry, no crackles, wheezes or rhonchi Gastrointestinal: soft, lax, Normal bowel sounds, Non tender Skin : Warm, Dry, Neurological : Alert & oriented x3, No focal deficit Objective Data Active Medications Acetaminophen (Acetaminophen 325 Mg Tablet) 650 mg PO Q6H PRN PRN Reason: Pain, Mild (Pain Scale 1-3) Last Admin: 12/08/23 20:32 Dose: 650 mg Documented By: MIGDALIA Aspirin (Aspirin Enteric Coated 81 Mg Tablet.) 81 mg PO DAILY [facility] Last Admin: 12/13/23 09:21 Dose: 81 mg Documented By: FALGUNI Atorvastatin Calcium (Atorvastatin Calcium 80 Mg Tablet) 80 mg PO BEDTIME [facility] Last Admin: 12/12/23 21:16 Dose: 80 mg Documented By: LASHANDA Ferrous Sulfate (Ferrous Sulfate 324 Mg Tablet.) 324 mg PO DAILY [facility] Last Admin: 12/13/23 09:20 Dose: 324 mg Documented By: FALGUNI Finasteride (Finasteride 5 Mg Tablet) 5 mg PO DAILY [facility] Last Admin: 12/13/23 09:23 Dose: 5 mg Documented By: FALGUNI Meropenem/Vaborbactam 4 gm/ (Sodium Chloride) 250 mls @ 83.333 mls/hr IV Q8H [facility] Last Admin: 12/13/23 12:03 Dose: 83.33 mls/hr Documented By: FALGUNI Lisinopril (Lisinopril 5 Mg Tablet) 5 mg PO DAILY [facility]; Protocol Last Admin: 12/13/23 09:22 Dose: 5 mg Documented By: FALGUNI Melatonin (Melatonin 3 Mg Tablet) 3 mg PO BEDTIME PRN PRN Reason: Insomnia Metoprolol Succinate (Metoprolol Succinate Er 100 Mg Tab.Er.24h) 100 mg PO DAILY [facility]; Protocol Last Admin: 12/13/23 09:22 Dose: 100 mg Documented By: FALGUNI Ondansetron HCl (Ondansetron Hcl 4 Mg/2 Ml Vial) 4 mg IVPUSH Q8H PRN PRN Reason: Nausea and Vomiting Sodium Chloride (0.9 % Sodium Chloride Flush 3 Ml Syringe) 3 ml IVFLUSH QSHIFT [facility] Last Admin: 12/13/23 09:24 Dose: 3 ml Documented By: FALGUNI Labs 12/13/23 05:04 12/13/23 05:04 Labs: Laboratory Results - last 24 hr 12/13/23 05:04 MCV 92.1 MCH 29.7 MCHC 32.2 RDW 12.9 Plt Count 309 MPV 8.3 L Absolute Nucleated RBC 0.000 Nucleated RBC % (auto) 0.0 Anion Gap 8 L Estim Creat Clear Calc 40.2 Estimated GFR > 60 Random Glucose 100 Calcium 8.5 Assessment and Plan (1) Infection due to ESBL-producing Escherichia coli: Status: Acute (2) Hematuria: Status: Acute Plan 78/M BPH recent admit for UTI sepsis, STEPHANE, urianary retention with right sided hydronephrosis, he was discharged yesterday and comes back today with blood in the wood bag MDR Pseudomonas UTI Culture now growing Pseudomoas ID consult, 7-10 days IV Vabomere (Meropenem and Vaborbactam) (12/12/23) will need a Midline if going to be placed Hematuria Cleared, wood removed Continue to hold eliquis for another 24 hours Urology consulted HTN Continue metoprolol, and hold lisinopril CKD Cr within baseline History PAD, claudication, s/f SFA complete occlusion s/p embolectomy and was on eliquis holding Eliquis in light of hematuria HLD Lipitor BPH Finesteride dvt prophylaxis SCDs DNR/DNI.. MOLST in chart need for inpatient for Hematuria that needs monitoring of H/H and investigation of source of bleed along with IV Antibiotics for ESBL UTI. Quality Stroke Does the patient have a stroke diagnosis?: No VTE Prior VTE?: No VTE Risk Level:: Medical - moderate - high VTE Device Contraindication: N/A - Device Ordered VTE Drug Contraindication: Treatment Not Tolerated
--- NOTE | 2023-12-13 14:55 | MHC.CM.PN ---
Addendum entered by Tiffanie Rodrigues 12/13/23 14:58: [facility] are both checking on Medication availability. Per MD medication may not be available. Original Note: No dc today per MD rounds. Patient will discharge on Vabomere (Meropenum+ Vaborbactam) 3 x a day
[2023-12-13 15:04] VITALS: BP 106/53; PULSE 77; RESP 17; TEMP 36.1; O2SAT 96
[2023-12-13 19:49] VITALS: BP 130/62; PULSE 77; RESP 17; TEMP 36.9; O2SAT 96
[2023-12-13] MEDS: Atorvastatin Calcium 80 MG TABLET PO (20:05)
[2023-12-14] MEDS: Acetaminophen 325 MG TABLET 650 MG PO ×2 (03:10→23:49)
[2023-12-14 03:18] VITALS: BP 151/72; PULSE 73; RESP 16; TEMP 36.1; O2SAT 96
[2023-12-14 07:02] VITALS: BP 122/62; PULSE 66; RESP 16; TEMP 36.6; O2SAT 94
[2023-12-14] MEDS: 0.9 % Sodium Chloride Flush 3 ML SYRINGE IVFLUSH ×3 (07:32→23:51)
[2023-12-14] MEDS: Ferrous Sulfate 324 MG TABLET.DR PO (07:32)
[2023-12-14] MEDS: Metoprolol Succinate ER 100 MG TAB.ER.24H PO (07:32)
[2023-12-14] MEDS: Aspirin Enteric Coated 81 MG TABLET.DR PO (07:32)
[2023-12-14] MEDS: Finasteride 5 MG TABLET PO (07:32)
[2023-12-14] MEDS: lisinopriL 5 MG TABLET PO (07:32)
--- NOTE | 2023-12-14 11:13 | HO.PM.IMPN ---
Subjective Subjective Date of Service: 12/14/23 Interval History: Seen and evaluated this morning no hematuria denies any fever or chills no overnight events Review of Systems Review of Systems: Yes all other systems are reviewed and are negative Physical Exam Vital Signs: Vital Signs: Last Vital Signs Temp 98 F 12/14/23 07:02 Pulse 66 12/14/23 07:02 Resp 16 12/14/23 07:02 BP 122/62 12/14/23 07:02 Pulse Ox 94 12/14/23 07:02 O2 Del Method Room Air 12/14/23 07:02 BMI result Body Mass Index 20.1 Const: Other: Constitutional : Awake, interactive, not in distress Neck : Normal inspection, Supple Cardiovascular : RRR, no JVP, no lower extremity edema Respiratory : good bilateral air entry, no crackles, wheezes or rhonchi Gastrointestinal: soft, lax, Normal bowel sounds, Non tender Skin : Warm, Dry, Neurological : Alert & oriented x3, No focal deficit Objective Data Active Medications Acetaminophen (Acetaminophen 325 Mg Tablet) 650 mg PO Q6H PRN PRN Reason: Pain, Mild (Pain Scale 1-3) Last Admin: 12/14/23 03:10 Dose: 650 mg Documented By: MAHOGANY Apixaban (Apixaban 2.5 Mg Tablet) 2.5 mg PO BID [facility] Aspirin (Aspirin Enteric Coated 81 Mg Tablet.) 81 mg PO DAILY [facility] Last Admin: 12/14/23 07:32 Dose: 81 mg Documented By: LISSETTE Atorvastatin Calcium (Atorvastatin Calcium 80 Mg Tablet) 80 mg PO BEDTIME [facility] Last Admin: 12/13/23 20:05 Dose: 80 mg Documented By: MAHOGANY Ferrous Sulfate (Ferrous Sulfate 324 Mg Tablet.) 324 mg PO DAILY [facility] Last Admin: 12/14/23 07:32 Dose: 324 mg Documented By: LISSETTE Finasteride (Finasteride 5 Mg Tablet) 5 mg PO DAILY [facility] Last Admin: 12/14/23 07:32 Dose: 5 mg Documented By: LISSETTE Meropenem/Vaborbactam 4 gm/ (Sodium Chloride) 250 mls @ 83.333 mls/hr IV Q8H [facility] Last Infusion: 12/14/23 06:08 Dose: Infused Documented By: MAHOGANY Lisinopril (Lisinopril 5 Mg Tablet) 5 mg PO DAILY [facility]; Protocol Last Admin: 12/14/23 07:32 Dose: 5 mg Documented By: LISSETTE Melatonin (Melatonin 3 Mg Tablet) 3 mg PO BEDTIME PRN PRN Reason: Insomnia Metoprolol Succinate (Metoprolol Succinate Er 100 Mg Tab.Er.24h) 100 mg PO DAILY [facility]; Protocol Last Admin: 12/14/23 07:32 Dose: 100 mg Documented By: LISSETTE Ondansetron HCl (Ondansetron Hcl 4 Mg/2 Ml Vial) 4 mg IVPUSH Q8H PRN PRN Reason: Nausea and Vomiting Sodium Chloride (0.9 % Sodium Chloride Flush 3 Ml Syringe) 3 ml IVFLUSH QSHIFT [facility] Last Admin: 12/14/23 07:32 Dose: 3 ml Documented By: LISSETTE Labs 12/13/23 05:04 12/13/23 05:04 Microbiology Microbiology Results: Microbiology 12/08/23 13:57 Blood Culture - Final Blood - Venous No growth after 5 days. 12/08/23 13:36 Blood Culture - Final Blood - Venous No growth after 5 days. Assessment and Plan (1) Infection due to ESBL-producing Escherichia coli: Status: Acute (2) Hematuria: Status: Acute Plan 78/M BPH recent admit for UTI sepsis, STEPHANE, urianary retention with right sided hydronephrosis, he was discharged yesterday and comes back today with blood in the wood bag MDR Pseudomonas UTI Culture now growing Pseudomoas ID consult, 7-10 days IV Vabomere (Meropenem and Vaborbactam) (12/12/23) will need a Midline if going to be placed Hematuria Cleared, wood removed restart Eliquis and monitor for bleeding Urology consulted HTN Continue metoprolol, and hold lisinopril CKD Cr within baseline History PAD, claudication, s/f SFA complete occlusion s/p embolectomy and was on eliquis restart Eliquis 2.5 mg bid (>78 yrs, <60 kg wt. ) HLD Lipitor BPH Finesteride dvt prophylaxis SCDs DNR/DNI.. MOLST in chart need for inpatient for IV Antibiotics for ESBL UTI. Quality Stroke Does the patient have a stroke diagnosis?: No VTE Prior VTE?: No VTE Risk Level:: Medical - moderate - high VTE Device Contraindication: N/A - Device Ordered VTE Drug Contraindication: Treatment Not Tolerated
[2023-12-14 15:02] VITALS: BP 122/62; PULSE 66; O2SAT 94
[2023-12-14 15:06] VITALS: BP 115/56; PULSE 68; RESP 17; TEMP 36.1; O2SAT 98
--- NOTE | 2023-12-14 15:43 | MHC.CM.PN ---
Patient from [facility] needs IV ABX at discharge. Plan is to touch base Sunday on bed availability and End date for ABX.. DP [facility] for IV ABX via BLS
[2023-12-14 19:42] VITALS: BP 125/60; PULSE 72; RESP 14; TEMP 36.8; O2SAT 96
[2023-12-14] MEDS: Apixaban 2.5 MG TABLET PO (20:30)
[2023-12-14] MEDS: Atorvastatin Calcium 80 MG TABLET PO (20:30)
[2023-12-15 00:49] VITALS: RESP 18
[2023-12-15 03:11] VITALS: BP 112/56; PULSE 69; RESP 16; TEMP 36.2; O2SAT 95
[2023-12-15 07:34] VITALS: BP 137/66; PULSE 66; RESP 15; TEMP 36.1; O2SAT 98
[2023-12-15] MEDS: Finasteride 5 MG TABLET PO (08:02)
[2023-12-15] MEDS: lisinopriL 5 MG TABLET PO (08:02)
[2023-12-15] MEDS: Apixaban 2.5 MG TABLET PO ×2 (08:02→20:39)
[2023-12-15] MEDS: Metoprolol Succinate ER 100 MG TAB.ER.24H PO (08:02)
[2023-12-15] MEDS: Ferrous Sulfate 324 MG TABLET.DR PO (08:02)
[2023-12-15] MEDS: Aspirin Enteric Coated 81 MG TABLET.DR PO (08:02)
[2023-12-15] MEDS: 0.9 % Sodium Chloride Flush 3 ML SYRINGE IVFLUSH ×4 (08:03→23:52)
--- NOTE | 2023-12-15 10:49 | P.PNIM_ITS ---
Subjective Subjective Date of Service: 12/15/23 Interval History: Seen and evaluated this morning no hematuria denies any fever or chills no overnight events Physical Exam 2 Vital Signs: Vital Signs: Last Vital Signs Temp 97 F 12/15/23 07:34 Pulse 66 12/15/23 07:34 Resp 15 12/15/23 07:34 BP 137/66 12/15/23 07:34 Pulse Ox 98 12/15/23 07:34 O2 Del Method Room Air 12/15/23 07:34 BMI result Body Mass Index 20.1 Const: Other: Constitutional : Awake, interactive, not in distress Neck : Normal inspection, Supple Cardiovascular : RRR, no JVP, no lower extremity edema Respiratory : good bilateral air entry, no crackles, wheezes or rhonchi Gastrointestinal: soft, lax, Normal bowel sounds, Non tender Skin : Warm, Dry, Neurological : Alert & oriented x3, No focal deficit Objective Data Active Medications Acetaminophen (Acetaminophen 325 Mg Tablet) 650 mg PO Q6H PRN PRN Reason: Pain, Mild (Pain Scale 1-3) Last Admin: 12/14/23 23:49 Dose: 650 mg Documented By: BILLIE Apixaban (Apixaban 2.5 Mg Tablet) 2.5 mg PO BID [facility] Last Admin: 12/15/23 08:02 Dose: 2.5 mg Documented By: LISSETTE Aspirin (Aspirin Enteric Coated 81 Mg Tablet.) 81 mg PO DAILY [facility] Last Admin: 12/15/23 08:02 Dose: 81 mg Documented By: LISSETTE Atorvastatin Calcium (Atorvastatin Calcium 80 Mg Tablet) 80 mg PO BEDTIME [facility] Last Admin: 12/14/23 20:30 Dose: 80 mg Documented By: LI Ferrous Sulfate (Ferrous Sulfate 324 Mg Tablet.) 324 mg PO DAILY [facility] Last Admin: 12/15/23 08:02 Dose: 324 mg Documented By: LISESTTE Finasteride (Finasteride 5 Mg Tablet) 5 mg PO DAILY [facility] Last Admin: 12/15/23 08:02 Dose: 5 mg Documented By: LISSETTE Meropenem/Vaborbactam 4 gm/ (Sodium Chloride) 250 mls @ 83.333 mls/hr IV Q8H [facility] Last Infusion: 12/15/23 07:10 Dose: Infused Documented By: HO.[email or web address] Lisinopril (Lisinopril 5 Mg Tablet) 5 mg PO DAILY [facility]; Protocol Last Admin: 12/15/23 08:02 Dose: 5 mg Documented By: LISSETTE Melatonin (Melatonin 3 Mg Tablet) 3 mg PO BEDTIME PRN PRN Reason: Insomnia Metoprolol Succinate (Metoprolol Succinate Er 100 Mg Tab.Er.24h) 100 mg PO DAILY [facility]; Protocol Last Admin: 12/15/23 08:02 Dose: 100 mg Documented By: LISSETTE Ondansetron HCl (Ondansetron Hcl 4 Mg/2 Ml Vial) 4 mg IVPUSH Q8H PRN PRN Reason: Nausea and Vomiting Sodium Chloride (0.9 % Sodium Chloride Flush 3 Ml Syringe) 3 ml IVFLUSH QSHIFT [facility] Last Admin: 12/15/23 08:03 Dose: 3 ml Documented By: LISSETTE Labs 12/13/23 05:04 12/13/23 05:04 Assessment and Plan (1) Infection due to ESBL-producing Escherichia coli: Status: Acute (2) Kidney calculi: Status: Acute (3) Hematuria: Status: Acute Plan 78/M BPH recent admit for UTI sepsis, STEPHANE, urianary retention with right sided hydronephrosis, he was discharged yesterday and comes back today with blood in the wood bag MDR Pseudomonas UTI Culture now growing Pseudomoas ID consult, 7-10 days IV Vabomere (Meropenem and Vaborbactam) (12/11/23) will need a Midline if going to be placed Hematuria Cleared, wood removed restart Eliquis and monitor for bleeding Urology consulted HTN Continue metoprolol, and hold lisinopril CKD Cr within baseline History PAD, claudication, s/f SFA complete occlusion s/p embolectomy and was on eliquis restart Eliquis 2.5 mg bid (>78 yrs, <60 kg wt. ) HLD Lipitor BPH Finesteride dvt prophylaxis SCDs DNR/DNI.. MOLST in chart need for inpatient for IV Antibiotics for ESBL UTI. Quality Stroke Does the patient have a stroke diagnosis?: No VTE Prior VTE?: No VTE Risk Level:: Medical - moderate - high VTE Device Contraindication: N/A - Device Ordered VTE Drug Contraindication: Treatment Not Tolerated
[2023-12-15 16:00] VITALS: BP 134/64; PULSE 75; RESP 18; TEMP 36.6; O2SAT 97
[2023-12-15 20:00] VITALS: BP 119/55; PULSE 75; RESP 16; TEMP 36.7; O2SAT 97
[2023-12-15] MEDS: Atorvastatin Calcium 80 MG TABLET PO (20:39)
[2023-12-16 03:35] VITALS: BP 131/68; PULSE 74; RESP 16; TEMP 36; O2SAT 98
[2023-12-16 07:31] VITALS: BP 120/61; PULSE 68; RESP 16; TEMP 36; O2SAT 97
[2023-12-16] MEDS: lisinopriL 5 MG TABLET PO (08:59)
[2023-12-16] MEDS: Finasteride 5 MG TABLET PO (08:59)
[2023-12-16] MEDS: 0.9 % Sodium Chloride Flush 3 ML SYRINGE IVFLUSH ×2 (08:59→21:45)
[2023-12-16] MEDS: Metoprolol Succinate ER 100 MG TAB.ER.24H PO (08:59)
[2023-12-16] MEDS: Apixaban 2.5 MG TABLET PO ×2 (08:59→21:45)
[2023-12-16] MEDS: Ferrous Sulfate 324 MG TABLET.DR PO (08:59)
[2023-12-16] MEDS: Aspirin Enteric Coated 81 MG TABLET.DR PO (08:59)
[2023-12-16 11:10] VITALS: BP 118/58; PULSE 70
--- NOTE | 2023-12-16 11:21 | P.PNIM_ITS ---
Subjective Subjective Date of Service: 12/16/23 Interval History: Seen and evaluated this morning no hematuria denies any fever or chills no overnight events Review of Systems Review of Systems: Yes all other systems are reviewed and are negative Physical Exam 2 Vital Signs: Vital Signs: Last Vital Signs Temp 96.8 F 12/16/23 07:31 Pulse 70 12/16/23 11:10 Resp 16 12/16/23 07:31 BP 118/58 L 12/16/23 11:10 Pulse Ox 97 12/16/23 07:31 O2 Del Method Room Air 12/16/23 07:31 BMI result Body Mass Index 20.1 Const: Other: Constitutional : Awake, interactive, not in distress Neck : Normal inspection, Supple Cardiovascular : RRR, no JVP, no lower extremity edema Respiratory : good bilateral air entry, no crackles, wheezes or rhonchi Gastrointestinal: soft, lax, Normal bowel sounds, Non tender Skin : Warm, Dry, Neurological : Alert & oriented x3, No focal deficit Objective Data Active Medications Acetaminophen (Acetaminophen 325 Mg Tablet) 650 mg PO Q6H PRN PRN Reason: Pain, Mild (Pain Scale 1-3) Last Admin: 12/14/23 23:49 Dose: 650 mg Documented By: BILLIE Apixaban (Apixaban 2.5 Mg Tablet) 2.5 mg PO BID [facility] Last Admin: 12/16/23 08:59 Dose: 2.5 mg Documented By: KIANA Aspirin (Aspirin Enteric Coated 81 Mg Tablet.) 81 mg PO DAILY [facility] Last Admin: 12/16/23 08:59 Dose: 81 mg Documented By: KIANA Atorvastatin Calcium (Atorvastatin Calcium 80 Mg Tablet) 80 mg PO BEDTIME [facility] Last Admin: 12/15/23 20:39 Dose: 80 mg Documented By: JASBIR Ferrous Sulfate (Ferrous Sulfate 324 Mg Tablet.) 324 mg PO DAILY [facility] Last Admin: 12/16/23 08:59 Dose: 324 mg Documented By: KIANA Finasteride (Finasteride 5 Mg Tablet) 5 mg PO DAILY [facility] Last Admin: 12/16/23 08:59 Dose: 5 mg Documented By: KIANA Meropenem/Vaborbactam 4 gm/ (Sodium Chloride) 250 mls @ 83.333 mls/hr IV Q8H [facility] Last Infusion: 12/16/23 07:44 Dose: Infused Documented By: KIANA Lisinopril (Lisinopril 5 Mg Tablet) 5 mg PO DAILY [facility]; Protocol Last Admin: 12/16/23 08:59 Dose: 5 mg Documented By: KIANA Melatonin (Melatonin 3 Mg Tablet) 3 mg PO BEDTIME PRN PRN Reason: Insomnia Metoprolol Succinate (Metoprolol Succinate Er 100 Mg Tab.Er.24h) 100 mg PO DAILY [facility]; Protocol Last Admin: 12/16/23 08:59 Dose: 100 mg Documented By: KIANA Ondansetron HCl (Ondansetron Hcl 4 Mg/2 Ml Vial) 4 mg IVPUSH Q8H PRN PRN Reason: Nausea and Vomiting Sodium Chloride (0.9 % Sodium Chloride Flush 3 Ml Syringe) 3 ml IVFLUSH QSHIFT [facility] Last Admin: 12/16/23 08:59 Dose: 3 ml Documented By: KIANA Labs 12/13/23 05:04 12/13/23 05:04 Assessment and Plan (1) Infection due to ESBL-producing Escherichia coli: Status: Acute (2) Hematuria: Status: Acute Plan 78/M BPH recent admit for UTI sepsis, STEPHANE, urianary retention with right sided hydronephrosis, he was discharged yesterday and comes back today with blood in the wood bag MDR Pseudomonas UTI Urine Culture growing Pseudomoas ID consult, 7-10 days IV Vabomere (Meropenem and Vaborbactam) (12/11/23) will need a Midline if going to be placed Hematuria Cleared, wood removed restart Eliquis and monitor for bleeding Urology consulted HTN Continue metoprolol, and hold lisinopril CKD Cr within baseline History PAD, claudication, s/f SFA complete occlusion s/p embolectomy and was on eliquis restart Eliquis 2.5 mg bid (>78 yrs, <60 kg wt. ) HLD Lipitor BPH Finesteride dvt prophylaxis SCDs DNR/DNI.. MOLST in chart need for inpatient for IV Antibiotics for ESBL UTI. Quality Stroke Does the patient have a stroke diagnosis?: No VTE Prior VTE?: No VTE Risk Level:: Medical - moderate - high VTE Device Contraindication: N/A - Device Ordered VTE Drug Contraindication: Treatment Not Tolerated
--- NOTE | 2023-12-16 13:57 | PM.UROPN ---
Subjective Subjective Date of Service: 12/16/23 Interval history: 78-year-old male Readmission with UTI Hematuria Had been on anticoagulation Hematuria resolving off anticoagulation At home medication includes finasteride Previously has followed with [facility] in [place] CT Scan - Right renal staghorn calculi measuring up to approximately 2.8 cm in maximal dimension. Right renal parenchymal atrophy and scarring. Approximately 0.8 cm right ureteral stone (image 48, coronal series 6). No definite hydronephrosis on the right. Thickened bladder wall Indwelling Guerrero catheter May review as outpatient Physical Exam Vital Signs: Vital Signs: Last Vital Signs Temp 96.8 F 12/16/23 07:31 Pulse 70 12/16/23 11:10 Resp 16 12/16/23 07:31 BP 118/58 L 12/16/23 11:10 Pulse Ox 97 12/16/23 07:31 O2 Del Method Room Air 12/16/23 07:31 BMI result Body Mass Index 20.1 Const: General: cooperative, healthy appearing, comfortable and no acute distress Orientation/consciousness: patient oriented x3 HEENT: Face and sinus: Yes normal facial exam Mouth: moist mucous membranes Neck: Neck: Yes normal visual inspection, Yes full ROM and Yes trachea midline Chest: Chest palpation & inspection: normal inspection of the chest Resp: Effort & Inspection: normal respiratory effort, able to speak in complete sentences and no respiratory distress GI: Inspection: Yes normal to inspection Back/Spine/Pelvis: Cervical Spine: normal cervical lordosis Thoracic/Lumbar Spine: thoracic and lumbar spine normal to inspection Skin: General skin exam: no rashes or lesions noted Neuro: General: patient oriented x3, tone normal and moves all extremities Extrem: General: Yes normal to inspection and Yes capillary refill normal Urology Results Labs 12/13/23 05:04 12/13/23 05:04 Progress Note: A&P Assessment and plan (1) Infection due to ESBL-producing Escherichia coli: Status: Acute (2) Hematuria: Status: Acute Plan Manage UTI Restart anticoagulation when free from hematuria for 48 hours Time Spent With Patient Time: Total time managing care of this patient today ____ minutes. Progress Note: Quality Stroke Does the patient have a stroke diagnosis?: No
[2023-12-16 15:10] VITALS: BP 133/62; PULSE 75; RESP 16; TEMP 36.8; O2SAT 98
[2023-12-16 20:00] VITALS: BP 130/66; PULSE 80; RESP 16; TEMP 36.3; O2SAT 98
[2023-12-16] MEDS: Atorvastatin Calcium 80 MG TABLET PO (21:45)
[2023-12-17 03:42] VITALS: BP 147/69; PULSE 73; RESP 16; TEMP 36.6; O2SAT 97
[2023-12-17 07:21] VITALS: BP 104/59; PULSE 84; RESP 20; TEMP 36.6; O2SAT 94
[2023-12-17] MEDS: Aspirin Enteric Coated 81 MG TABLET.DR PO (07:38)
[2023-12-17] MEDS: Apixaban 2.5 MG TABLET PO ×2 (07:38→21:26)
[2023-12-17] MEDS: 0.9 % Sodium Chloride Flush 3 ML SYRINGE IVFLUSH ×3 (07:39→21:26)
[2023-12-17] MEDS: Ferrous Sulfate 324 MG TABLET.DR PO (07:39)
[2023-12-17] MEDS: Finasteride 5 MG TABLET PO (07:39)
[2023-12-17] MEDS: Metoprolol Succinate ER 100 MG TAB.ER.24H PO (07:45)
[2023-12-17 07:46] VITALS: BP 118/60
[2023-12-17] MEDS: lisinopriL 5 MG TABLET PO (07:46)
--- NOTE | 2023-12-17 09:33 | P.PNIM_ITS ---
Subjective Subjective Date of Service: 12/17/23 Interval History: Seen and evaluated this morning no hematuria denies any fever or chills no overnight events Review of Systems Review of Systems: Yes all other systems are reviewed and are negative Physical Exam 2 Vital Signs: Vital Signs: Last Vital Signs Temp 97.9 F 12/17/23 07:21 Pulse 84 12/17/23 07:21 Resp 20 12/17/23 07:21 BP 118/60 12/17/23 07:46 Pulse Ox 94 12/17/23 07:21 O2 Del Method Room Air 12/17/23 07:21 BMI result Body Mass Index 20.1 Const: Other: Constitutional : Awake, interactive, not in distress Neck : Normal inspection, Supple Cardiovascular : RRR, no JVP, no lower extremity edema Respiratory : good bilateral air entry, no crackles, wheezes or rhonchi Gastrointestinal: soft, lax, Normal bowel sounds, Non tender Skin : Warm, Dry, Neurological : Alert & oriented x3, No focal deficit Objective Data Active Medications Acetaminophen (Acetaminophen 325 Mg Tablet) 650 mg PO Q6H PRN PRN Reason: Pain, Mild (Pain Scale 1-3) Last Admin: 12/14/23 23:49 Dose: 650 mg Documented By: BILLIE Apixaban (Apixaban 2.5 Mg Tablet) 2.5 mg PO BID [facility] Last Admin: 12/17/23 07:38 Dose: 2.5 mg Documented By: LISSETTE Aspirin (Aspirin Enteric Coated 81 Mg Tablet.) 81 mg PO DAILY [facility] Last Admin: 12/17/23 07:38 Dose: 81 mg Documented By: LISSETTE Atorvastatin Calcium (Atorvastatin Calcium 80 Mg Tablet) 80 mg PO BEDTIME [facility] Last Admin: 12/16/23 21:45 Dose: 80 mg Documented By: LASHANDA Ferrous Sulfate (Ferrous Sulfate 324 Mg Tablet.) 324 mg PO DAILY [facility] Last Admin: 12/17/23 07:39 Dose: 324 mg Documented By: LISSETTE Finasteride (Finasteride 5 Mg Tablet) 5 mg PO DAILY [facility] Last Admin: 12/17/23 07:39 Dose: 5 mg Documented By: LISSETTE Meropenem/Vaborbactam 4 gm/ (Sodium Chloride) 250 mls @ 83.333 mls/hr IV Q8H [facility] Last Infusion: 12/17/23 07:08 Dose: Infused Documented By: LISSETTE Lisinopril (Lisinopril 5 Mg Tablet) 5 mg PO DAILY [facility]; Protocol Last Admin: 12/17/23 07:46 Dose: 5 mg Documented By: LISSETTE Melatonin (Melatonin 3 Mg Tablet) 3 mg PO BEDTIME PRN PRN Reason: Insomnia Metoprolol Succinate (Metoprolol Succinate Er 100 Mg Tab.Er.24h) 100 mg PO DAILY [facility]; Protocol Last Admin: 12/17/23 07:45 Dose: 100 mg Documented By: LISSETTE Ondansetron HCl (Ondansetron Hcl 4 Mg/2 Ml Vial) 4 mg IVPUSH Q8H PRN PRN Reason: Nausea and Vomiting Sodium Chloride (0.9 % Sodium Chloride Flush 3 Ml Syringe) 3 ml IVFLUSH QSHIFT [facility] Last Admin: 12/17/23 07:39 Dose: 3 ml Documented By: LISSETTE Labs 12/13/23 05:04 12/13/23 05:04 Assessment and Plan (1) Infection due to ESBL-producing Escherichia coli: Status: Acute (2) Hematuria: Status: Acute Plan 78/M BPH recent admit for UTI sepsis, STEPHANE, urianary retention with right sided hydronephrosis, he was discharged yesterday and comes back today with blood in the wood bag MDR Pseudomonas UTI Urine Culture growing Pseudomoas ID consult, 7-10 days IV Vabomere (Meropenem and Vaborbactam) (12/11/23) Hematuria Cleared, wood removed restart Eliquis and monitor for bleeding Urology consulted , follow as outpatient HTN Continue metoprolol, and hold lisinopril CKD Cr within baseline History PAD, claudication, s/f SFA complete occlusion s/p embolectomy and was on eliquis restart Eliquis 2.5 mg bid (>78 yrs, <60 kg wt. ) HLD Lipitor BPH Finesteride dvt prophylaxis SCDs DNR/DNI.. MOLST in chart need for inpatient for IV Antibiotics for ESBL UTI. Quality Stroke Does the patient have a stroke diagnosis?: No VTE Prior VTE?: No VTE Risk Level:: Medical - moderate - high VTE Device Contraindication: N/A - Device Ordered VTE Drug Contraindication: Treatment Not Tolerated
--- NOTE | 2023-12-17 13:53 | MHC.CM.PN ---
Per MD rounds No discharge today. Patient continues on IV ABX. DP home,[facility] via [facility] or [facility].
[2023-12-17 15:20] VITALS: BP 103/50; PULSE 86; RESP 18; TEMP 36.2; O2SAT 98
[2023-12-17 20:00] VITALS: BP 133/71; PULSE 79; RESP 16; TEMP 36.1; O2SAT 97
[2023-12-17] MEDS: Atorvastatin Calcium 80 MG TABLET PO (21:26)
[2023-12-18] MEDS: Acetaminophen 325 MG TABLET 650 MG PO ×2 (02:46→20:06)
[2023-12-18 03:27] VITALS: BP 101/65; PULSE 92; RESP 16; TEMP 36.5; O2SAT 96
[2023-12-18 05:57] LABS: Anion Gap 12 (12-20); Blood Urea Nitrogen 31 mg/dL (9-16); Calcium 8.4 mg/dL (8.4-10.2); Carbon Dioxide 20 mmol/L (22-29); Chloride 114 mmol/L (96-108); Creatinine Clr Calc Pharmacy 27.6; Estimated Glomerular Filt Rate 42; Glucose Random 89 mg/dL (60-115); Potassium 4.2 mmol/L (3.3-5.1); Sodium 142 mmol/L (135-145)
[2023-12-18 07:37] VITALS: BP 119/56; PULSE 88; RESP 14; TEMP 36.4; O2SAT 94
[2023-12-18] MEDS: Aspirin Enteric Coated 81 MG TABLET.DR PO (07:56)
[2023-12-18] MEDS: Ferrous Sulfate 324 MG TABLET.DR PO (07:56)
[2023-12-18] MEDS: Apixaban 2.5 MG TABLET PO ×2 (07:56→20:07)
[2023-12-18] MEDS: Metoprolol Succinate ER 100 MG TAB.ER.24H PO (07:56)
[2023-12-18] MEDS: Finasteride 5 MG TABLET PO (07:57)
[2023-12-18] MEDS: 0.9 % Sodium Chloride 500 ML IV (07:59)
--- NOTE | 2023-12-18 11:09 | MHC.CM.PN ---
Addendum entered by Tiffanie Rodrigues 12/18/23 12:28: The nurse, Kathryn from [facility], came in to see the patient. She will provide [employer] services at [facility] temporarily. The patient has agreed to accept the assistance. Original Note: IMM 12/18/23 Per MD patient has completed course of ABX. He will discharge home with SN+PT from [facility]. A message was left for the nurse, Kathryn @ [facility]. She has been notified of discharge plan for tomorrow. [facility] has been notified of discharge tomorrow. DP home with [facility]. Patient may need assist with transportation if [facility] can not provide transport home.
--- NOTE | 2023-12-18 11:53 | P.PNIM_ITS ---
Subjective Subjective Date of Service: 12/18/23 Interval History: Seen and evaluated this morning reporting no hematuria denies any fever or chills Creatinine went up to 1.6 no overnight events Review of Systems Review of Systems: Yes all other systems are reviewed and are negative Physical Exam 2 Vital Signs: Vital Signs: Last Vital Signs Temp 97.6 F 12/18/23 07:37 Pulse 88 12/18/23 07:37 Resp 14 12/18/23 07:37 BP 119/56 L 12/18/23 07:37 Pulse Ox 94 12/18/23 07:37 O2 Del Method Room Air 12/18/23 07:37 BMI result Body Mass Index 20.1 Const: Other: Constitutional : Awake, interactive, not in distress Neck : Normal inspection, Supple Cardiovascular : RRR, no JVP, no lower extremity edema Respiratory : good bilateral air entry, no crackles, wheezes or rhonchi Gastrointestinal: soft, lax, Normal bowel sounds, Non tender Skin : Warm, Dry, Neurological : Alert & oriented x3, No focal deficit Objective Data Active Medications Acetaminophen (Acetaminophen 325 Mg Tablet) 650 mg PO Q6H PRN PRN Reason: Pain, Mild (Pain Scale 1-3) Last Admin: 12/18/23 02:46 Dose: 650 mg Documented By: LASHANDA Apixaban (Apixaban 2.5 Mg Tablet) 2.5 mg PO BID [facility] Last Admin: 12/18/23 07:56 Dose: 2.5 mg Documented By: JOSEMANUEL Aspirin (Aspirin Enteric Coated 81 Mg Tablet.) 81 mg PO DAILY [facility] Last Admin: 12/18/23 07:56 Dose: 81 mg Documented By: JOSEMANUEL Atorvastatin Calcium (Atorvastatin Calcium 80 Mg Tablet) 80 mg PO BEDTIME [facility] Last Admin: 12/17/23 21:26 Dose: 80 mg Documented By: LASHANDA Ferrous Sulfate (Ferrous Sulfate 324 Mg Tablet.) 324 mg PO DAILY [facility] Last Admin: 12/18/23 07:56 Dose: 324 mg Documented By: JOSEMANUEL Finasteride (Finasteride 5 Mg Tablet) 5 mg PO DAILY [facility] Last Admin: 12/18/23 07:57 Dose: 5 mg Documented By: JOSEMANUEL Meropenem/Vaborbactam 4 gm/ (Sodium Chloride) 250 mls @ 83.333 mls/hr IV Q8H [facility] Last Infusion: 12/18/23 07:21 Dose: Infused Documented By: JOSEMANUEL Lisinopril (Lisinopril 5 Mg Tablet) 5 mg PO DAILY [facility]; Protocol Last Admin: 12/17/23 07:46 Dose: 5 mg Documented By: LISSETTE Melatonin (Melatonin 3 Mg Tablet) 3 mg PO BEDTIME PRN PRN Reason: Insomnia Metoprolol Succinate (Metoprolol Succinate Er 100 Mg Tab.Er.24h) 100 mg PO DAILY [facility]; Protocol Last Admin: 12/18/23 07:56 Dose: 100 mg Documented By: JOSEMANUEL Ondansetron HCl (Ondansetron Hcl 4 Mg/2 Ml Vial) 4 mg IVPUSH Q8H PRN PRN Reason: Nausea and Vomiting Sodium Chloride (0.9 % Sodium Chloride Flush 3 Ml Syringe) 3 ml IVFLUSH QSHIFT [facility] Last Admin: 12/18/23 07:21 Dose: Not Given Documented By: JOSEMANUEL Non-Admin Reason: Previously Administered Labs 12/13/23 05:04 12/18/23 05:11 Labs: Laboratory Results - last 24 hr 12/18/23 05:11 Hold Purple Top SEE NOTE Anion Gap 12 Estim Creat Clear Calc 27.6 Estimated GFR 42 Random Glucose 89 Calcium 8.4 Assessment and Plan (1) Infection due to ESBL-producing Escherichia coli: Status: Acute (2) Hematuria: Status: Acute (3) Acute kidney injury superimposed on CKD: Status: Acute Plan 78/M BPH recent admit for UTI sepsis, STEPHANE, urianary retention with right sided hydronephrosis, he was discharged yesterday and comes back today with blood in the wood bag STEPHANE on CKD2 Cr 1.6 from 1 Likely prerenal\ATN given low BP readings hold nephrotoxic meds IVF follow I\O & BMP MDR Pseudomonas UTI Urine Culture growing Pseudomoas ID consult, 7-10 days IV Vabomere (Meropenem and Vaborbactam) (12/11/23) Finished 7 days 12/16 but kept on Meropenem Hematuria Cleared, wood removed restarted Eliquis adjusted dose and monitor for bleeding Urology consulted , follow as outpatient HTN Continue metoprolol, and hold lisinopril CKD Cr within baseline History PAD, claudication, s/f SFA complete occlusion s/p embolectomy and was on eliquis restart Eliquis 2.5 mg bid (>78 yrs, <60 kg wt. ) HLD Lipitor BPH Finesteride dvt prophylaxis SCDs DNR/DNI.. MOLST in chart need for inpatient for IV Antibiotics for ESBL UTI and IVF for STEPHANE pending repeat BMP Quality Stroke Does the patient have a stroke diagnosis?: No VTE Prior VTE?: No VTE Risk Level:: Medical - moderate - high VTE Device Contraindication: N/A - Device Ordered VTE Drug Contraindication: Treatment Not Tolerated
[2023-12-18] MEDS: 0.9 % Sodium Chloride 1,000 ML 80 ML IVCONT (13:29)
[2023-12-18 16:08] VITALS: BP 129/64; PULSE 82; RESP 20; TEMP 36.4; O2SAT 95
[2023-12-18 19:23] VITALS: BP 133/69; PULSE 81; RESP 18; TEMP 36.4; O2SAT 97
[2023-12-18] MEDS: Atorvastatin Calcium 80 MG TABLET PO (20:07)
[2023-12-18] MEDS: Melatonin 3 MG TABLET PO (20:07)
[2023-12-19] MEDS: 0.9 % Sodium Chloride Flush 3 ML SYRINGE IVFLUSH (00:04)
[2023-12-19 03:34] VITALS: BP 134/66; PULSE 72; RESP 16; TEMP 36.2; O2SAT 98
[2023-12-19] MEDS: 0.9 % Sodium Chloride 1,000 ML 80 ML IVCONT (03:40)
[2023-12-19 06:50] LABS: Anion Gap 10 (12-20); Blood Urea Nitrogen 29 mg/dL (9-16); Calcium 8.3 mg/dL (8.4-10.2); Carbon Dioxide 22 mmol/L (22-29); Chloride 114 mmol/L (96-108); Creatinine Clr Calc Pharmacy 33.7; Estimated Glomerular Filt Rate 53; Glucose Random 81 mg/dL (60-115); Potassium 4.3 mmol/L (3.3-5.1); Sodium 142 mmol/L (135-145)
[2023-12-19 07:09] VITALS: BP 123/58; PULSE 78; RESP 14; TEMP 36.2; O2SAT 98
[2023-12-19] MEDS: Finasteride 5 MG TABLET PO (08:11)
[2023-12-19] MEDS: Metoprolol Succinate ER 100 MG TAB.ER.24H PO (08:12)
[2023-12-19] MEDS: Apixaban 2.5 MG TABLET PO (08:12)
[2023-12-19] MEDS: Aspirin Enteric Coated 81 MG TABLET.DR PO (08:12)
[2023-12-19] MEDS: Ferrous Sulfate 324 MG TABLET.DR PO (08:12)
--- NOTE | 2023-12-19 09:45 | P.DS_ITS ---
DS: Providers Provider Date of Service: 12/19/23 Date of admission: 12/08/23 16:41 Primary care physician: Brianna Chase MD Consults: 12/09/23 10:43 Consult to Urology Routine Consulting Provider: Brennon Peck Reason for consultation: Hematuria, kidney stones Has provider been notified: No 12/11/23 10:09 Consult to Infectious Diseases Stat Consulting Provider: [facility] Infectious Disease Reason for consultation: resistant Pseudomonas uti DS: Diagnosis Discharge Diagnosis (1) Infection due to ESBL-producing Escherichia coli: Status: Acute (2) Hematuria: Status: Acute (3) Acute kidney injury superimposed on CKD: Status: Acute DS: Summary Hospital Course Hospital Course: from initial hpi: 78-year-old male with a history of PAD/claudication and SFA complete occlusion, which necessitated a right femoral cutdown and embolectomy in April 2023 and is on eliquis. He also has a medical history of hypertension (HTN), benign prostatic hyperplasia (BPH), hyperlipidemia (HLD), and is currently residing in [facility]. He was admitted to the hospital from 12/04/23 to 12/07/23 and treated for UTI, sepis, Bahman urinary retention with hydronephrosis and a wood cath was left in. He was treated with antibiotics and sepsis resolved. Urology recommended f/u with his urologist at [facility]. He was discharged just yesterday and comes back today because blood in wood catheter, appearance of dark red wine. Hemoglobin is 12, he is not septic. A CT of the abdomen is done again and show cystitis and unchanged right sided hydronephrosis hospital course: Patient was admitted for hematuria due to urinary tract infection due to multidrug resistant Pseudomonas urinary tract infection. He was seen by infectious disease who recommended 7-10 days of IV Vabomere which was completed. Hematuria resolved. Wood removed. Restarted on low-dose Eliquis given advanced age and weight under 60 kg. Has not had recurrent hematuria. Course complicated by acute kidney injury on CKD 2. Lisinopril has been held. Creatinine has improved to 1.3 at time of discharge. For hypertension will continue metoprolol and lisinopril has been held. For history of peripheral vascular disease will continue on aspirin, Eliquis, statin. For BPH was continued on finasteride. Patient is feeling better will be discharged home. Time Attestation Discharge Coordination Time (in mins): 35 Quality: Safe Use of Opioids Does Pt have an Active Cancer Diagnosis on the Problem List?: No Quality: Stroke Does the patient have a stroke diagnosis?: No Physical Exam Vital Signs: Vital Signs: Last Vital Signs Temp 97.1 F 12/19/23 07:09 Pulse 78 12/19/23 07:09 Resp 14 12/19/23 07:09 BP 123/58 L 12/19/23 07:09 Pulse Ox 98 12/19/23 07:09 O2 Del Method Room Air 12/19/23 07:09 BMI result Body Mass Index 20.1 Const: Other: Constitutional : Awake, interactive, not in distress Neck : Normal inspection, Supple Cardiovascular : RRR, no JVP, no lower extremity edema Respiratory : good bilateral air entry, no crackles, wheezes or rhonchi Gastrointestinal: soft, lax, Normal bowel sounds, Non tender Skin : Warm, Dry, Neurological : Alert & oriented x3, No focal deficit DS: Data Data Completed and Pending Labs on day of discharge: Laboratory Results - last 24 hr 12/19/23 05:58 Hold Purple Top SEE NOTE Sodium 142 Potassium 4.3 Chloride 114 H Carbon Dioxide 22 Anion Gap 10 L BUN 29 H Creatinine 1.31 Estim Creat Clear Calc 33.7 Estimated GFR 53 Random Glucose 81 Calcium 8.3 L Discharge Plan Discharge Anticipated Discharge Date/Time: 12/19/23 09:39 Patient Disposition: Home Health Service Discharge Diagnosis: hematuria, esbl uti Referrals: Brianna Chase MD [Primary Care Provider] - 1 Week Discharge Medications: New Eliquis 2.5 mg Tablet 2.5 mg PO BID Qty: 180 0RF Continued aspirin 81 mg Tablet,Delayed Release (Dr/Ec) 81 mg PO DAILY ferrous sulfate 324 mg (65 mg iron) Tablet,Delayed Release (Dr/Ec) 324 mg PO DAILY atorvastatin 80 mg tablet 80 mg PO BEDTIME metoprolol succinate 100 mg tablet extended release 24 hr 100 mg PO DAILY finasteride 5 mg tablet 5 mg PO DAILY Discontinued Eliquis 5 mg tablet 5 mg PO BID lisinopril 5 mg tablet 5 mg PO DAILY cefuroxime axetil 250 mg tablet 250 mg PO BID 7 Days Qty: 14 0RF Discharge Orders: Discharge Order (Routine); Ordered 12/19/23 Ordered By: Anshu Mace Diet: Advance to usual diet Activity on Discharge: As tolerated Stand Alone Forms: Patient Portal Discharge page Care Plan Goals: recovery Health Concerns: esbl uti Plan of Treatment: completed antibiotics course, holding lisinopril for normal bp and bahman, monitor bps and bmp outpatient Assessment: see above
--- NOTE | 2023-12-19 09:50 | MHC.CM.PN ---
IMM 11/19/23 Patient is discharged to home [facility] today. [facility] will provide transport home. They are scheduled for 12pm nut picker. [facility] will provide SN and PT services. Kathryn bowen [facility] nurse has set up additional Home health aide services.
--- NOTE | 2023-12-19 10:33 | W.MHC.F2F ---
Service Date Service Date: 12/19/23 Encounter Date of encounter: 12/19/23 Reasons for Services Signs and symptoms assessed: weakness due to prolonged hospitalization Reason for penitentiary: medication management, medication treatment and teach disease management Reason for physical therapy: home safety and mobility and therapeutic exercises Homebound: Leaving the home is medically contraindicated at this time without the asist of a device and/or another person due th the listed conditions above and below. Reason homebound: weakness related to hospital stay Certification: Based on the above findings, I certify that this patient is confined to the home and needs intermittent penitentiary care, physical therapy and/or speech therapy, or continues to need occupational therapy. The patient is under my care, and I have initiated the establishment of the plan of care. The patient will be followed by a physician who will periodically review the plan of care. Time Spent With Patient Time: Total time managing care of this patient today ____ minutes.
== END 2023-12-19 12:58 | disposition home health service (06) | DRG 690 ==
LOC: HO.ED 16:07 → HO.EDOVER 16:47 → HO.S3 19:10
PROVIDERS: Physician Assistant; Student in an Organized Health Care Education/Training Program; Admitting Provider Internal Medicine; Emergency Provider Emergency Medicine Emergency Medical Services; PCP Internal Medicine; Visit Provider Internal Medicine
DX: N39.0 Urinary tract infection, site not specified (principal); Z16.12 Extended spectrum beta lactamase (ESBL) resistance; Z16.24 Resistance to multiple antibiotics; N20.2 Calculus of kidney with calculus of ureter; R31.9 Hematuria, unspecified; E78.5 Hyperlipidemia, unspecified; N40.0 Benign prostatic hyperplasia without lower urinary tract symptoms; B96.5 Pseudomonas (aeruginosa) (mallei) (pseudomallei) as the cause of diseases classified elsewhere; E11.22 Type 2 diabetes mellitus with diabetic chronic kidney disease; E11.51 Type 2 diabetes mellitus with diabetic peripheral angiopathy without gangrene; Z66 Do not resuscitate; I12.9 Hypertensive chronic kidney disease with stage 1 through stage 4 chronic kidney disease, or unspecified chronic kidney disease; N18.2 Chronic kidney disease, stage 2 (mild); Z79.01 Long term (current) use of anticoagulants; Z87.440 Personal history of urinary (tract) infections; Z79.899 Other long term (current) drug therapy
CPT/HCPCS: 36415; 74176; 80048; 80053; 81001; 83605; 83735; 85025; 85027; 85610; 86850; 86900; 86901; 87040; 87086; 87088; 87186; 97116; 97162; 97530; 99285; C1758; J0696; J2185; J2186

== ENCOUNTER → 2023-12-08 16:41 | Outpatient (BNV) | payer MEDICARE, SELFPAY | PROVIDERS: Admitting Provider Internal Medicine; Emergency Provider Emergency Medicine Emergency Medical Services; PCP Internal Medicine; Visit Provider Internal Medicine | DX: R31.9 Hematuria, unspecified (principal); N40.0 Benign prostatic hyperplasia without lower urinary tract symptoms | CPT/HCPCS: 99222 ==

== ENCOUNTER → 2023-12-08 16:41 | Outpatient (BNV) | payer MEDICARE, SELFPAY | PROVIDERS: Admitting Provider Internal Medicine; Emergency Provider Emergency Medicine Emergency Medical Services; PCP Internal Medicine; Visit Provider Urology | DX: A49.8 Other bacterial infections of unspecified site (principal); R31.9 Hematuria, unspecified; Z16.12 Extended spectrum beta lactamase (ESBL) resistance | CPT/HCPCS: 99232 ==

== ENCOUNTER → 2023-12-08 16:41 | Outpatient (BNV) | payer MEDICARE, SELFPAY | PROVIDERS: Admitting Provider Internal Medicine; Emergency Provider Emergency Medicine Emergency Medical Services; PCP Internal Medicine; Visit Provider Internal Medicine | DX: N17.9 Acute kidney failure, unspecified (principal); N18.2 Chronic kidney disease, stage 2 (mild); N39.0 Urinary tract infection, site not specified; B96.21 Shiga toxin-producing Escherichia coli [E. coli] [STEC] O157 as the cause of diseases classified elsewhere; Z16.12 Extended spectrum beta lactamase (ESBL) resistance; R31.9 Hematuria, unspecified | CPT/HCPCS: 99223; 99232; 99233; 99239; G0180 ==

== ENCOUNTER 2023-12-24 14:07 | Outpatient (AMB) | payer MEDICARE, SELFPAY ==
--- NOTE | 2024-01-02 16:29 | A.ECONSULT ---
E-Consult Consulting Provider Opinion: he has Pseudomonas urine He has no hematuria or dysuria He is probably colonized Would not treat with antibiotics and not recheck urinalysis or culture
== END 2023-12-24 14:07 | disposition home or self-care (01) ==
LOC: HO.HID 14:07
PROVIDERS: PCP Internal Medicine; Visit Provider Internal Medicine
DX: N39.0 Urinary tract infection, site not specified (principal); B96.5 Pseudomonas (aeruginosa) (mallei) (pseudomallei) as the cause of diseases classified elsewhere
CPT/HCPCS: 99446

== ENCOUNTER → 2023-12-24 14:07 | Outpatient (BNVA) | payer MEDICARE, SELFPAY | PROVIDERS: PCP Internal Medicine; Visit Provider Internal Medicine ==

== ENCOUNTER 2024-06-18 10:01 | Outpatient (REF) | payer MEDICARE, SELFPAY ==
[2024-06-18 10:32] LABS: MANUAL DIFF FLAG NO
[2024-06-18 10:34] LABS: Basophils Percent Auto 0.6 % (0-2); Eosinophils Absolute Auto 0.2 X10*3/uL (0.0-0.4); Eosinophils Percent Auto 3.4 % (0-4); Hematocrit 45.3 % (42.0-52.0); Hemoglobin 14.9 g/dl (14.0-18.0); Imm Gran Abs Auto 0.02 X10*3/uL (0.00-0.03); Imm Gran Pct Auto 0.3 % (0.0-0.4); Lymphocytes Absolute Auto 1.4 X10*3/uL (1.2-4.9); Lymphocytes Percent Auto 19.3 % (20-40); Mean Corpuscular HGB Conc 32.9 g/dl (31.0-36.0); Mean Corpuscular Hemoglobin 30.3 pg (27.0-33.0); Mean Corpuscular Volume 92.3 fL (80.0-98.0); Mean Platelet Volume 8.7 fL (9.4-12.4); Monocytes Absolute Auto 0.7 X10*3/uL (0.1-1.2); Monocytes Percent Auto 10.4 % (2-11); Neutrophils Absolute Auto 4.7 x10*3/uL (2.0-8.3); Platelet Count 275 X10*3/uL (160-400); Red Blood Count 4.91 X10*6/uL (4.60-5.80); Red Cell Distribution Width 12.3 % (11.0-16.0); White Blood Count 7.1 X10*3/uL (4.8-10.8)
[2024-06-18 11:00] LABS: Alanine Aminotransferase 17 U/L (0-40); Albumin Level 3.8 g/dL (3.5-5.0); Alkaline Phosphatase 94 U/L (39-117); Anion Gap 13 (12-20); Aspartate Amino Transferase 25 U/L (5-37); Bilirubin Total 0.3 mg/dL (0.0-1.0); Blood Urea Nitrogen 30 mg/dL (9-16); Calcium 9.6 mg/dL (8.4-10.2); Carbon Dioxide 24 mmol/L (22-29); Chloride 107 mmol/L (96-108); Cholesterol 155 mg/dL (<200); Estimated Glomerular Filt Rate 42; Glucose Random 101 mg/dL (60-115); HDL Cholesterol 33 mg/dL (>40); LDL Cholesterol Calculated 89 mg/dL (<100); Potassium 4.6 mmol/L (3.3-5.1); Sodium 139 mmol/L (135-145); Total Protein 7.8 g/dL (6.5-8.0); Triglycerides 165 mg/dL (<150)
[2024-06-18 11:22] LABS: Ferritin 89 ng/mL (20-250)
[2024-06-18 11:30] LABS: Folate 7.9 ng/mL (> or = 4.0); Prostate Specific Antigen 6.13 ng/mL (<0.05-4.0); Vitamin B12 401 pg/mL (200-900)
== END 2024-06-18 10:02 | disposition home or self-care (01) ==
LOC: HO.10HDL 10:01
PROVIDERS: Visit Provider Internal Medicine
DX: Z12.5 Encounter for screening for malignant neoplasm of prostate (principal); R97.20 Elevated prostate specific antigen [PSA]; D64.9 Anemia, unspecified; E78.00 Pure hypercholesterolemia, unspecified; I10 Essential (primary) hypertension; I71.9 Aortic aneurysm of unspecified site, without rupture; Z79.01 Long term (current) use of anticoagulants
CPT/HCPCS: 36415; 80053; 80061; 82607; 82728; 82746; 84153; 85025

== ENCOUNTER 2024-10-28 10:49 | Outpatient (AMB) | payer MEDICARE, SELFPAY ==
--- NOTE | 2024-10-28 11:03 | A.OFFVIS_ITS ---
Intake Visit Reasons: Elevated PSA/BPH(Inpatient Follow Up) Intake Note: Patient is present for ELEVATED PSA/BPH Urology Medication:FINASTERIDE Antibiotic Allergy:NONE Blood Thinner:ASPIRIN,APIXABAN TODAY'S PVR: 69ML'S Director Of Special Education Required: No Allergies No Known Allergies Allergy (Verified 10/28/24 11:03) HPI Comments Details: 78-year-old male Admission from assisted living with presentation of fatigue, malaise, myalgia Question of urinary tract infection Prior history UTI Creatinine 1.8, WBC 19.6, UA shows positive leukocytes, negative nitrites At home medication includes finasteride Previously has followed with [facility] in [place] CT Scan - Right renal staghorn calculi measuring up to approximately 2.8 cm in maximal dimension. Right renal parenchymal atrophy and scarring. Approximately 0.8 cm right ureteral stone (image 48, coronal series 6). No definite hydronephrosis on the right. Thickened bladder wall Indwelling Guerrero catheter PSA 07/01 6.1 Mark Plan KUB 6 months Remain on finasteride and terazosin PFSH Medical History (Updated 10/28/24 @ 11:37 by Brennon Peck MD) BPH (benign prostatic hyperplasia) PAD (peripheral artery disease) HLD (hyperlipidemia) HTN (hypertension) Social History Housing: Assisted Living Facility Alcohol intake: never Patient Tobacco Use Status: Never used Tobacco service: No Office Procedures Post Void Residual Post Residual Void Post Void Residual (PVR): 69 [id number] Void Residual by ultrasound Results AMB Urinalysis, Automated UA Leukoctes 500 Jean/uL Last Edit by AL Gardner on 10/28/24 11:14 UA Nitrite Negative Last Edit by AL Gardner on 10/28/24 11:14 UA Urobilinogen 0.2 mg/dL Last Edit by AL Gardner on 10/28/24 11:1 4 UA Protein 30 mg/dL Last Edit by AL Gardner on 10/28/24 11:14 UA pH 6.0 Last Edit by AL Gardner on 10/28/24 11:14 UA Blood 200 Adalberto/uL Last Edit by AL Gardner on 10/28/24 11:14 UA Specific Mcalister 1.020 Last Edit by AL Gardner on 10/28/24 11: 14 UA Ketone Negative Last Edit by AL Gardner on 10/28/24 11:14 UA Bilirubin 0 mg/dL Last Edit by AL Gardner on 10/28/24 11:14 UA Glucose 0 mg/dL Last Edit by AL Gardner on 10/28/24 11:14 Results Reviewed Results Reviewed: Laboratory Last Values Urine pH (Auto) 6.0 10/28/24 11:13 Specific Mcalister (Auto) 1.020 10/28/24 11:13 Urine Protein (Auto) 30 mg/dL 10/28/24 11:13 Glucose (UA)(Auto) 0 mg/dL 10/28/24 11:13 Urine Ketones (Auto) Negative 10/28/24 11:13 Urine Blood (Auto) 200 Adalberto/uL 10/28/24 11:13 Urine Nitrite (Auto) Negative 10/28/24 11:13 Urine Bilirubin (Auto) 0 mg/dL 10/28/24 11:13 Urine Urobilinogen (Auto) 0.2 mg/dL 10/28/24 11:13 Leukocyte Esterase (Auto) 500 Jean/uL 10/28/24 11:13 Assessment & Plan Assessment & Plan (1) Staghorn calculus: Code(s): N20.0 - Calculus of kidney Category: Medical (2) Incomplete emptying of bladder due to benign prostatic hyperplasia: Code(s): N40.1 - Benign prostatic hyperplasia with lower urinary tract symptoms; R33.9 - Retention of urine, unspecified Category: Medical (3) BPH (benign prostatic hyperplasia): Code(s): N40.0 - Benign prostatic hyperplasia without lower urinary tract symptoms Category: Medical Orders: Orders AMB Urinalysis Automated Today Z13.9 - Encounter for screening, unspecified XR KUB 6 Months N20.0 - Calculus of kidney Medications: New terazosin 5 mg PO BEDTIME 90 days 90 caps 1RF N40.0 - Benign prostatic hyperplasia without lower urinary tract symptoms, N40.1 - Benign prostatic hyperplasia with lower urinary tract symptoms, R35.0 - Frequency of micturition Changed From finasteride 5 mg PO DAILY N40.0 - Benign prostatic hyperplasia without lower urinary tract symptoms To finasteride 5 mg PO DAILY 90 days 90 tabs 1RF N40.0 - Benign prostatic hyperplasia without lower urinary tract symptoms Coding Diagnoses Staghorn calculus N20.0 Incomplete emptying of bladder due to benign prostatic hyperplasia N40.1; R33.9 BPH (benign prostatic hyperplasia) N40.0 CPT Codes Post Residual Void - PVR CPT Code: 24307-Moic Void Residual by ultrasound ([id number])
--- OUTSIDE RECORDS SUMMARY | 2024-10-28 12:25 | XMS_ITS | Continuity of Care Document ---
Author Organization [facility] Address [address] [place] [address]- Care Team Providers Care Director Of Materials Name Role Phone Rena IZAGUIRRE, Brianna Suresh Primary Care Physician Encounter [facility] [id number] Date(s): 09/24/24 - 10/01/24 [facility] [address] [place] [address]- Attending Physician: Shasha MOROCHO, Melissa Adams Admitting Physician: Melissa Pulliam NP Encounter Type: Office Visit Allergies, Adverse Reactions, Alerts No Known Allergies Medications aspirin 81 mg oral delayed release tablet 81 mg, 1, tablet, By Mouth, Daily, # 30 tablet, Refills 0, Tot. Refills 0, Maintenance, 11/19/18 9:59:17 AM EST, Do Not Route Start Date: 11/19/18 Status: Ordered Quantity: 30.0 Unit: tablet Repeat number: 1 atorvastatin 80 mg oral tablet = 80 mg, By Mouth, Daily at bedtime, 0 Refills, Maintenance, Tablet Start Date: 11/19/18 Status: Ordered Repeat number: 1 Eliquis 5 mg oral tablet 1 tablet = 5 mg, By Mouth, 2 times a day, # 60 tablet, 2 Refills, Maintenance, 04/13/23 1:09:00 PM EDT, Tablet, Partial fill upon patient request if the prescription is for a schedule II opioid drug. Start Date: 04/13/23 Stop Date: 05/13/23 Status: Ordered Quantity: 60.0 Unit: tablet Repeat number: 1 Ferrous Sulfate EC Refills 0, Maintenance, 07/26/23 9:01:00 AM EDT, Partial fill upon patient request if the prescription is for a schedule II opioid drug. Start Date: 07/26/23 Status: Ordered Repeat number: 1 finasteride 5 mg oral tablet 1 tablet = 5 mg, By Mouth, Daily at bedtime, 0 Refills, Maintenance, 11/12/18 8:37:00 PM EST Start Date: 11/12/18 Status: Ordered Repeat number: 1 lisinopril 5 mg oral tablet 5 mg, 1, tablet, By Mouth, Daily, # 30 tablet, Refills 0, Maintenance, 11/12/18 4:25:41 AM EST Start Date: 11/12/18 Status: Ordered Quantity: 30.0 Unit: tablet Repeat number: 1 Metoprolol Succinate ER 100 mg oral tablet, extended release 1 tablet = 100 mg, By Mouth, Daily, # 90 tablet, 0 Refills, Maintenance, 11/12/18 4:25:22 AM EST, ER Tablet Start Date: 11/12/18 Status: Ordered Quantity: 90.0 Unit: tablet Repeat number: 1 Tylenol 8 Hour 650 mg oral tablet, extended release 2 tablet = 1,300 mg, By Mouth, Every 8 hours, 0 Refills, Maintenance, 11/28/18 9:49:14 AM EST Start Date: 11/28/18 Status: Ordered Repeat number: 1 Vitamin C By Mouth, Daily, 0 Refills, Maintenance, 07/26/23 9:01:00 AM EDT, Partial fill upon patient requestif the prescription is for a schedule II opioid drug. Start Date: 07/26/23 Status: Ordered Repeat number: 1 Problem List Condition Confirmation Course Effective Dates Status Health St atus Informant Unsteady gait, h/o falls Confirmed Active Benign prostatic hyperplasia Confirmed Active CAD (coronary artery disease) Confirmed Active History of AR (myocardial infarction) Confirmed Active HLD (hyperlipidemia) Confirmed Active HTN (hypertension) Confirmed Active Vital Signs Most recent to oldest [Reference Range]: 1 Height 160 cm (09/24/24 4:04 PM) Weight 72.57 kg (09/24/24 4:04 PM) Oxygen Saturation [94-100 %] 96 % (09/24/24 4:04 PM) Pulse Rate [55-90 bpm] 77 bpm (09/24/24 4:04 PM) Body Mass Index [18.5-24.99 kg/m2] 28.35 kg/m2 *H* (09/24/24 4:04 PM) Blood Pressure [90-138/55-84 mm Hg] 120/ 85mm Hg (09/24/24 4:04 PM) Respiratory Rate [16-30 br/min] 16 br/mi n (09/24/24 4:04 PM) Blood pressure sites Arm, left (09/24/24 4:04 PM) Weight Obtained Via Standing scale (09/24/24 4:04 PM) Social History Social History Type Response Smoking Status Never (less than 100 in lifetime) entered on: 05/29/23 Sex Sex Representation Male (finding) Note * Melissa Bazan: PERFORM Event Display: Patient Education/Instruction Authored Date: [id number] Ambulatory Adult Visit Summary [facility] [address] [place], [place] [address] [place] [address] Name: JENNIFER MUSA : 1945?? Visit: 09/24/2024 15:11?? Ambulatory Visit Instructions ?? Your Care Team Primary Care Provider Rena IZAGUIRRE, Brianna Suresh? This Visit Provider Melissa Pulliam NP Your Diagnosis PAD (peripheral artery disease) Vitals Signs Pulse Rate: 77 bpm Height: 160 cm Respiratory Rate: 16 br/min Weight: 72.57 kg Systolic Blood Pressure: 120 mm Hg Body Mass Index:??28.35 kg/m2??High Diastolic Blood Pressure:??85 mm Hg??High Body surface area: 1.8 Oxygen Saturation: 96 % ?? Medications The list below reflects the information in our records and provided by you today along with any changes made during this visit. Please continue your medications until treatment is completed or stopped by your provider. If this is different from the information you have or there are other questions,please contact the prescribing provider. What How Much When Instructions Unchanged Acetaminophen (Tylenol 8 Hour 650 mg oral tablet, extended release) 2 tab(s) Oral Every 8 hours Unchanged apixaban (Eliquis 5 mg oral tablet) 1 tab(s) Oral Twice a day Duration: 30 Days Unchanged Ascorbic Acid (Vitamin C) Oral Daily Unchanged Aspirin (aspirin 81 mg oral delayed release tablet) 1 tab(s) Oral Daily Unchanged Atorvastatin (atorvastatin 80 mg oral tablet) 80 Milligram Oral Daily at Bedtime Unchanged Ferrous Sulfate (Ferrous Sulfate EC) Unchanged Finasteride (finasteride 5 mg oral tablet) 1 tab(s) Oral Daily at Bedtime Unchanged Lisinopril (lisinopril 5 mg oral tablet) 1 tab(s) Oral Daily Unchanged Metoprolol (Metoprolol Succinate ER 100 mg oral tablet, extended release) 1 tab(s) Oral Daily Medications and Immunizations Administered Medications Given During Visit No medications given during this visit.?? Allergies (NKA means No Known Allergies) NKA Common Emergency Awareness Tips IS IT A STROKE? Act FAST and Check for these signs: FACE Does the face look uneven? ARM Does one arm drift down? SPEECH Does their speech sound strange? TIME Call at any sign of stroke ?? Heart Attack Signs Chest discomfort: Most heart attacks involve discomfort in the center of the chest and lasts more than a few minutes, or goes away and comes back. It can feel like uncomfortable pressure, squeezing, fullness or pain. Discomfort in upper body: Symptoms can include pain or discomfort in one or both arms, back, neck, jaw or stomach. Shortness of breath: With or without discomfort. Other signs: Breaking out in a cold sweat, nausea, or lightheaded. Remember, MINUTES DO MATTER. If you experience any of these heart attack warning signs, call to get immediate medical attention! ?? Smoking can increase your chances of developing chronic health problems and can cause harmful effects to other family members in your house. If you smoke, you are strongly encouraged to quit. Please call [employer] Link at [phone] or 1-874-199Apps4All ([phone]) or log in to [email or web address] for referrals to smoking cessation programs. ?? The National Suicide Prevention Hotline is available 30/04 if you or someone you know needs to find a reason to keep living. By calling 4-882-061-Swap.com / Net[employer]er (1710) you'll be connected to a skilled, trained counselor at a crisis center in your area. [facility] Portal You can view and manage your care through the patient portal or by using a health care marco a of your choosing. [employer] is a website that allows you to securely view your medical information including your hospital discharge summary, office visit summaries, medications and follow-up visits. You can also request appointments, renew medications, and request access to your medical information using a health care marco a of your choosing, or just ask a question. You can enroll at [email or web address] or register during your next office visit. [facility], in keeping with [facility] guidance, no longer requires face masks for staff, patientsor visitors in most situations. Similiar to time spent indoors at other locations, there is the chance that you were exposed to repiratory viruses during your time with us (such as flu or COVID-19). If you develop symptoms concerning for a viral respiratory infection, please seek testing (and treatment if indicated) from your medical provider or home test kit. ?? Disclaimer: The information provided is of a general nature and is intended to be used in conjunction with the recommendations and advice of your health care practitioner. Every effort has been made to ensure that the information provided is accurate and complete at the time it is provided to you however, as your needs change, or, as new information becomes available, different or additional instructions may be required. ?? If you have questions, please consult with your primary care provider or pharmacist, as appropriate. This information is not intended to serve as substitution for assessment and evaluation by a qualified health care provider. If you do not have a primary care provider, you may find a [facility] provider by calling [facility] Link at [phone]. Patient Care team information Care Team Personnel Name: Brianna Chase MD Position: [facility] Outreach Member Role: PCP Address: [address] [place] [address] [address] [place] [address]- Telecom: Name: Marianela Proctor RN Position: [facility] RN Member Role: Primary Care Nurse Name: Charity Benjamin RN Position: [facility] JERMAINE Nurse Member Role: Primary Care Nurse Name: Christa Omer RN Position: [facility] RN Member Role: Primary Care Nurse Name: Nixon Padilla RN Position: [facility] RN Member Role: Primary Care Nurse Care Team Related Persons Name: IRMATAYLORMadison MADY Name: TITUS MUSA Name: DENNIS MUSA Insurance Providers Guarantor name: JENNIFER MUSA Health Plan Information #: 1 Payer: [employer] Member Number: [id number] Policy Number: NA Group Number: [id number] Health Plan Information #: 2 Payer: [employer] Member Number: [id number] Policy Number: NA Group Number: [id number]
--- OUTSIDE RECORDS SUMMARY | 2024-10-28 12:25 | XMS_ITS | Continuity of Care Document ---
Author Organization [facility] Address [address] [place] [address]- Care Team Providers Care Financial Sales Advisor Name Role Phone Rena IZAGUIRRE, Brianna Surehs Primary Care Physician Encounter [facility] Date(s): 09/24/24 - 10/24/24 [facility] [address] [place], [place] [address] Attending Physician: Josselyn Ahuja Admitting Physician: Josselyn Ahuja Referring Physician: Josselyn Ahuja Encounter Type: Triage Allergies, Adverse Reactions, Alerts No Known Allergies [...] (coronary artery disease) Confirmed Active History of ID (myocardial infarction) Confirmed Active HLD (hyperlipidemia) Confirmed Active HTN (hypertension) Confirmed Active Social History Social History Type Response Smoking Status Never (less than 100 in lifetime) entered on: 05/29/23 Sex Sex Representation Male (finding) Patient Care team information Care Team Personnel Name: Brianna Chase MD Position: [facility] Outreach Member Role: PCP Address: [address] [place] [address] [address] [place] [address]- Telecom: Name: Marianela Proctor RN Position: [facility] RN Member Role: Primary Care Nurse Name: Charity Benjamin RN Position: [facility] AMB Nurse Member Role: Primary Care Nurse Name: Christa Omer RN Position: [facility] RN Member Role: Primary Care Nurse Name: Nixon Padilla RN Position: [facility] RN Member Role: Primary Care Nurse Care Team Related Persons Name: MADY MUSA Name: TITUS MUSA Name: DENNIS MUSA Insurance Providers Guarantor name: JENNIFER MUSA Health Plan Information #: 1 Payer: [employer] Member Number: NA Policy Number: NA Group Number: NA
--- OUTSIDE RECORDS SUMMARY | 2024-10-28 12:25 | XMS_ITS | Continuity of Care Document ---
Author Organization [facility] Address [address] [place] [address]- Care Team Providers Care High Density Talc Coater Operator Name Role Phone Rena IZAGUIRRE, Brianna Suresh Primary Care Physician [phone] [id number] Date(s): 05/30/24 - 09/27/24 [facility] [address] [place] [address]- Attending Physician: Melissa Pulliam NP Admitting Physician: Shasha MOROCHO, Melissa Adams Referring Physician: Brianna Chase MD Encounter Type: Pre Office Visit Allergies, Adverse Reactions, Alerts No [...] (coronary artery disease) Confirmed Active History of [place] (myocardial infarction) Confirmed Active HLD (hyperlipidemia) Confirmed Active HTN (hypertension) Confirmed Active Social History Social History Type Response Smoking Status Never (less than 100 in lifetime) entered on: 05/29/23 Sex Sex Representation Male (finding) Patient Care team information Care Team Personnel Name: Brainna Chase MD Position: [facility] Outreach Member Role: PCP Address: [address] [place] [address] [address] Brianna Chase [place] [address] Telecom: Name: Marianela Proctor RN Position: [facility] RN Member Role: Primary Care Nurse Name: Charity Benjamin RN Position: [facility] JERMAINE Nurse Member Role: Primary Care Nurse Name: Christa Omer RN Position: [facility] RN Member Role: Primary Care Nurse Name: Nixon Padilla RN Position: [facility] RN Member Role: Primary Care Nurse Care Team Related Persons Name: MADY MUSA Name: TITUS MUSA Name: DENNIS MUSA Insurance Providers Guarantor name: JENNIFER MUSA Health Plan Information #: 1 Payer: [employer] Member Number: [id number] Policy Number: NA Group Number: [facility] Health Plan Information #: 2 Payer: [employer] Member Number: [id number] Policy Number: NA Group Number: NA
--- OUTSIDE RECORDS SUMMARY | 2024-10-28 12:25 | XMS_ITS | Clinical Summary ---
Author Organization [employer] Address [address] [place] [address] [address] [place] [address] Care Team Providers Care Assistant Branch Manager Name Role Phone Unavailable Primary Care Provider Unavailabl e Immunizations Name Administration Dates Next Due Influenza High-dose Quadrivalent Preservative Fr ee 07/15/2022,07/08/2020 Pfizer Covid-19 Vaccine 12+ 07/25/2023 Pfizer Covid-19 Vaccine 12+ Bivalent 10/24/2022 Social History Tobacco Use Types Packs/Day Years Used Date Smoking Tobacco: Never Assessed Sex and Gender Information Value Date Recorded Sex Assigned at Male 07/25/2023 2:29 PM EDT Legal Sex Male 1:03 PM EST Gender Identity Male 07/25/2023 2:29 PM EDT Sexual Orientation Straight 07/25/2023 2: 29 PM EDT Plan of Treatment Health Maintenance Due Date Last Done Comments Depression Screening 1943 Lipid Panel 1943 SDOH Screening 1943 Alcohol/Substance Use Screening 1955 Tobacco Screening 1955 DTaP/Tdap/Td Vaccines (1 - Tdap) 1962 Zoster Vaccines (1 of 2) 1993 Pneumococcal Vaccine: 65+ Years (1 of 1 - PCV) 2008 RSV Patients and Patients Aged 60 years or older (1 - 1-dose 75+ series) 2018 COVID-19 Vaccine ( season) 2024 07/25/2023, 10/24/2022, 02/15/2022, Additional history exists Influenza Vaccine (#1) 2024 07/15/2022, 2019 HIB Vaccines Aged Out No longer eligi ble based on patient's age to complete this topic HPV Vaccines Aged Out No longer eligi ble based on patient's age to complete this topic Hepatitis A Vaccines Aged Out No long er eligible based on patient's age to complete this topic Hepatitis B Vaccines Aged Out No long er eligible based on patient's age to complete this topic IPV Vaccines Aged Out No longer eligi ble based on patient's age to complete this topic Meningococcal Vaccine Aged Out No mohini luna eligible based on patient's age to complete this topic RSV under 20 months Aged Out No longe r eligible based on patient's age to complete this topic Rotavirus Vaccines Aged Out No longer eligible based on patient's age to complete this topic Insurance [facility]
--- OUTSIDE RECORDS SUMMARY | 2024-10-28 12:26 | XMS_ITS | Clinical Summary ---
Author Organization [facility] Address [address] [place] [address] Care Team Providers Care Grooving Machine Operator Name Role Phone Reji Castaneda MD Primary Care Provider [phone] Social History Tobacco Use Types Packs/Day Years Used Date Smoking Tobacco: Never Assessed Sex and Gender Information Value Date Recorded Sex Assigned at Not on file Gender Identity Not on file Sexual Orientation Not on file Plan of Treatment Health Maintenance Due Date Last Done Comments DTaP,Tdap,and Td Vaccines (1 - Tdap) 1962 Zoster Vaccines (1 of 2) 1993 Pneumococcal Vaccine: 65+ Ye ars (1 of 1 - PCV) 2008 RSV Immunization Patients 60 + Years Old (1 - 1-dose 75+ series) 2018 Cholesterol Screening (Lipid Panel) 09/10/2022 Depression Screening 09/10/2022 Falls Risk Assessment 09/10/2022 Social Influencers of Health Screening 09/10/2022 COVID-19 Vaccine ( - 2023-2 5 season) 2024 Influenza Vaccine (#1) 2024 HIB Vaccines Aged Out No longer eligi [...] on patient's age to complete this topic MMR Vaccines Aged Out No longer eligi ble based on patient's age to complete this topic Meningococcal ACWY Vaccine Aged Out N o longer eligible based on patient's age to complete this topic RSV Immunization Patients Un harmony 20 months Aged Out No longer eligible b ased on patient's age to complete this topic Varicella Vaccines Aged Out No longer eligible based on patient's age to complete this topic Care Teams Grooving Machine Operator Relationship Specialty Start Date End Date Reji Castaneda MD PCP - General 01/31/17
== END 2024-10-28 11:41 | disposition home or self-care (01) ==
PROVIDERS: PCP Internal Medicine; Visit Provider Urology
DX: Z13.9 Encounter for screening, unspecified (principal)

== ENCOUNTER → 2024-10-28 10:49 | Outpatient (BNVA) | payer MEDICARE, SELFPAY | PROVIDERS: PCP Internal Medicine; Visit Provider Urology | DX: N40.1 Benign prostatic hyperplasia with lower urinary tract symptoms (principal); R33.8 Other retention of urine; N20.0 Calculus of kidney | CPT/HCPCS: 51798; 81003; 99212 ==

== ENCOUNTER 2024-12-16 11:51 | Outpatient (REF) | payer MEDICARE, SELFPAY ==
[2024-12-16 13:42] LABS: MANUAL DIFF FLAG NO
[2024-12-16 13:54] LABS: Basophils Percent Auto 0.6 % (0-2); Eosinophils Absolute Auto 0.3 X10*3/uL (0.0-0.4); Eosinophils Percent Auto 4.3 % (0-4); Hematocrit 45.5 % (42.0-52.0); Hemoglobin 14.7 g/dl (14.0-18.0); Imm Gran Abs Auto 0.02 X10*3/uL (0.00-0.03); Imm Gran Pct Auto 0.3 % (0.0-0.4); Lymphocytes Absolute Auto 1.3 X10*3/uL (1.2-4.9); Lymphocytes Percent Auto 18.8 % (20-40); Mean Corpuscular HGB Conc 32.3 g/dl (31.0-36.0); Mean Corpuscular Hemoglobin 30.1 pg (27.0-33.0); Mean Corpuscular Volume 93.2 fL (80.0-98.0); Mean Platelet Volume 9.2 fL (9.4-12.4); Monocytes Absolute Auto 0.7 X10*3/uL (0.1-1.2); Neutrophils Absolute Auto 4.4 x10*3/uL (2.0-8.3); Platelet Count 264 X10*3/uL (160-400); Red Blood Count 4.88 X10*6/uL (4.60-5.80); Red Cell Distribution Width 13.4 % (11.0-16.0); White Blood Count 6.7 X10*3/uL (4.8-10.8)
[2024-12-16 14:10] LABS: Alanine Aminotransferase 25 U/L (0-40); Albumin Level 3.8 g/dL (3.5-5.0); Alkaline Phosphatase 101 U/L (39-117); Anion Gap 12 (12-20); Aspartate Amino Transferase 38 U/L (5-37); Bilirubin Total 0.3 mg/dL (0.0-1.0); Blood Urea Nitrogen 29 mg/dL (9-16); Calcium 9.5 mg/dL (8.4-10.2); Carbon Dioxide 22 mmol/L (22-29); Chloride 111 mmol/L (96-108); Cholesterol 150 mg/dL (<200); Estimated Glomerular Filt Rate 46; Glucose Random 87 mg/dL (60-115); HDL Cholesterol 31 mg/dL (>40); LDL Cholesterol Calculated 77 mg/dL (<100); Potassium 4.6 mmol/L (3.3-5.1); Sodium 140 mmol/L (135-145); Total Protein 8.2 g/dL (6.5-8.0); Triglycerides 212 mg/dL (<150)
[2024-12-16 14:19] LABS: Prostate Specific Antigen Scr 5.17 ng/mL (<0.05-4.0)
--- OUTSIDE RECORDS SUMMARY | 2024-12-16 14:38 | XMS_ITS | Clinical Summary ---
Author Organization [employer] Address [address] [place] [address] [address] [place] [address] Care Team Providers Care Informatics Nurse Name Role Phone Unavailable Primary Care Provider [...] 1955 DTaP/Tdap/Td Vaccines (1 - Tdap) 1962 Pneumococcal Vaccine: 50+ Years (1 of 1 - PCV) 1993 Zoster Vaccines (1 of 2) 1993 RSV Patients and Patients Aged 60 years [...] patient's age to complete this topic Insurance [facility]
--- OUTSIDE RECORDS SUMMARY | 2024-12-16 14:38 | XMS_ITS | Clinical Summary ---
Author Organization [facility] Address [address] [place] [address] Care Team Providers Care Damage Inside Adjuster Name Role Phone Reji Castaneda MD Primary Care Provider [phone] Social History Tobacco Use Types Packs/Day Years Used Date Smoking Tobacco: Never Assessed Sex and Gender Information Value Date Recorded Sex Assigned at Not on file Legal Sex Male 8:44 AM EST Gender Identity Not on file Sexual Orientation Not on file Plan of Treatment Health Maintenance Due Date Last Done Comments DTaP,Tdap,and Td Vaccines (1 - Tdap) 1962 Pneumococcal Vaccine: 50+ Ye ars (1 of 1 - PCV) 1993 Zoster Vaccines (1 of 2) 1993 RSV Immunization Patients 60 + Years Old [...] patient's age to complete this topic Meningococcal B Vacine Aged Out No lo nger eligible based on patient's age to complete this topic RSV Immunization Patients Un harmony 20 months Aged Out No longer eligible b ased on patient's age to complete this topic Varicella Vaccines Aged Out No longer eligible based on patient's age to complete this topic Care Teams Damage Inside Adjuster Relationship Specialty Start Date End Date Reji Castaneda MD PCP - General 01/31/17
== END 2024-12-16 11:52 | disposition home or self-care (01) ==
LOC: HO.10HDL 11:51
PROVIDERS: Visit Provider Internal Medicine
DX: E78.00 Pure hypercholesterolemia, unspecified (principal); I10 Essential (primary) hypertension; Z12.5 Encounter for screening for malignant neoplasm of prostate; R97.20 Elevated prostate specific antigen [PSA]
CPT/HCPCS: 36415; 80053; 80061; 84153; 85025

== ENCOUNTER 2024-12-24 20:36 | Emergency (ER) | payer MEDICARE, SELFPAY ==
[2024-12-24] VITALS (16 sets, daily range): BP systolic 64–138; BP diastolic 35–88; PULSE 62–113; RESP 11–28; TEMP 37.7–38.8; O2SAT 90–96; BMI 20.5
--- NOTE | 2024-12-24 | ECG_ITS ---
Test Reason : weakness Blood Pressure : */* mmHG Vent. Rate : 111 BPM Atrial Rate : 111 BPM P-R Int : 150 ms QRS Dur : 90 ms QT Int : 356 ms P-R-T Axes : 71 13 56 degrees QTcB Int : 484 ms Sinus tachycardia Possible Left atrial enlargement Inferior infarct , age undetermined Abnormal ECG No previous ECGs available Referred By: Generic ED Physician Electronically Signed By: Santana Sykes
--- NOTE | ~2024-12-24 | XR_ITS ---
CLINICAL HISTORY: s p right IJ triple lumen placement 1 view chest x-ray Comparison: CR - XR CHEST 1V - 12/24/24 22:24 EDT Findings: Left basilar opacity or infiltrate and trace layering left-sided effusion. Normal size heart. Right internal jugular central venous catheter with the distal tip in the superior vena cava. No acute fracture. IMPRESSION: 1. Left basilar opacity or infiltrate and trace layering left-sided effusion. 2. Right internal jugular central venous catheter with the distal tip in the superior vena cava. This document has been electronically signed by: Shaw Felipe MD, PHD on 12/25/2024 04:00:13
--- NOTE | ~2024-12-24 | CT_ITS ---
CLINICAL HISTORY: rectal bleed hypotension CT abdomen and pelvis without contrast Comparison: CT/REG/SR - CT ABDOMEN PELVIS WO IV CON - 12/08/23 14:06 EST Findings: There is volume loss and opacity in the left lung base. Heart size is normal. Previous sternotomy. There are multiple low-attenuation lesions within the liver consistent with cysts. Stones are present in the gallbladder. No pericholecystic fluid. Adrenal glands, pancreas, spleen and left kidney are unremarkable. There is an incidental 4.8 cm cyst at the inferior pole of the left kidney. There is a 2.8 cm staghorn calculus in the right kidney and there is marked atrophy of the right kidney, similar to prior. Unchanged from prior is a 4 mm calcified stone in the mid right ureter. There is no right-sided hydronephrosis. No bowel obstruction, pneumoperitoneum, or pneumatosis. Colon is predominantly decompressed. Appendix not visualized. The prostate gland is enlarged. Previously seen gas in the posterior prostate gland is no longer visualized. Bilateral fat containing inguinal hernias. There is a Guerrero catheter in the urinary bladder which is mostly decompressed. There has been a previous L4 through S1 posterior fusion. Extensive arterial vascular calcifications present. IMPRESSION: 1. Volume loss and lung opacity at the left lung base which could be atelectasis, aspiration or infection. 2. Unchanged right renal staghorn calculus and mid right ureter stone without evidence of acute obstructive uropathy. 3. Prostatomegaly. No gas seen in the prostate gland. 4. Cholelithiasis. This document has been electronically signed by: Khurram Villagomez MD on 12/24/2024 23:39:22
--- NOTE | ~2024-12-24 | XR_ITS ---
CLINICAL HISTORY: sepsis 1 view chest x-ray Comparison: CT/REG/SR - CT ABDOMEN PELVIS WO IV CON - 12/08/23 14:06 EST Findings: There is streaky opacity at the left lung base and asymmetric elevation of the left hemidiaphragm. There is enlargement of the main pulmonary artery. Heart size is normal. Sternotomy wires are present. Surgical clips overlie the mediastinum. No acute fracture. IMPRESSION: Left base streaky opacity which could be atelectasis, aspiration or infection. Enlargement of the main pulmonary artery, a finding that can be associated with pulmonary artery hypertension. This document has been electronically signed by: Khurram Villagomez MD on 12/24/2024 23:15:12
--- NOTE | 2024-12-24 21:20 | ED_ITS ---
HPI - General Adult General Chief complaint: Weakness Stated complaint: Chills; Nausea Time Seen by Provider: 12/24/24 21:15 Source: patient, EMS and old records reviewed Mode of arrival: EMS Limitations: altered mental status History of Present Illness ED Provider: DR. Aviles HPI narrative: 79-year-old male with history of PAD/claudication and SFA complete occlusion on Eliquis, HTN, BPH, HLD, currently at [facility] patient is a poor historian in the ED was sent from [facility] for evaluation of generalized weakness with nausea and diarrhea on arrival patient is a poor historian, hypotensive, and febrile. On the physical exam was hematochezia stool indicating GI bleed reviewing patient records patient is on Eliquis, patient has a MOLST form indicating patient is DNR/DNI. No more history I was able to obtained from the patient. Related Data Home Medications ?Medication ?Instructions ?Recorded ?Confirmed atorvastatin 80 mg tablet 80 mg PO BEDTIME 04/09/23 12/08/23 metoprolol succinate 100 mg 100 mg PO DAILY 04/09/23 12/08/23 tablet,extended release 24 hr aspirin 81 mg tablet,delayed 81 mg PO DAILY 12/08/23 12/08/23 release ferrous sulfate 324 mg (65 mg 324 mg PO DAILY 12/08/23 12/08/23 iron) tablet,delayed release Previous Rx's ?Medication ?Instructions ?Recorded apixaban 2.5 mg tablet (Eliquis) 2.5 mg PO BID #180 tabs 12/19/23 finasteride 5 mg tablet 5 mg PO DAILY 90 days #90 tabs 10/28/24 terazosin 5 mg capsule 5 mg PO BEDTIME 90 days #90 caps 10/28/24 Allergies Allergy/AdvReac Type Severity Reaction Status Date / Time No Known Allergies Allergy Verified 12/24/24 20:53 Review of Systems 2 Review of Systems: Yes Unobtainable due to mental condition PMFSH Past Medical History Medical History BPH (benign prostatic hyperplasia) PAD (peripheral artery disease) HLD (hyperlipidemia) HTN (hypertension) Social History Social History Housing: Assisted Living Facility Alcohol intake: never Patient Tobacco Use Status: Never used Tobacco Smoked in Last 30 Days: No Use of substances other than those prescribed or required for medical reasons: No Advance Directives: No Advance Directives Information Provided: No service: No Physical Exam ED Vital Signs: Vital Signs - 24 hr 12/24/24 20:52 12/24/24 22:14 12/24/24 22:25 Temperature 101.8 F H 100.2 F Pulse Rate 113 H 102 H 101 H Respiratory Rate 28 H 23 H 24 H Blood Pressure 86/36 L 95/39 L 90/35 L Pulse Oximetry 90 L 94 94 Oxygen Delivery Method Room Air Nasal Cannula Nasal Cannula Oxygen Flow Rate 1 2 12/24/24 22:37 12/24/24 22:48 12/24/24 23:15 Temperature Pulse Rate 97 99 99 Respiratory Rate 19 11 L 14 Blood Pressure 83/41 L 82/41 L 64/37 L Pulse Oximetry 96 94 96 Oxygen Delivery Method Nasal Cannula Nasal Cannula Nasal Cannula Oxygen Flow Rate 2 2 2 12/24/24 23:18 12/24/24 23:19 12/24/24 23:22 Temperature 100.0 F Pulse Rate 101 H 99 Respiratory Rate 16 Blood Pressure 80/38 L 80/38 L 73/36 L Pulse Oximetry 95 Oxygen Delivery Method Nasal Cannula Oxygen Flow Rate 2 12/24/24 23:23 12/24/24 23:30 12/24/24 23:37 Temperature Pulse Rate 99 98 94 Respiratory Rate Blood Pressure 73/36 L 75/39 L 77/38 L Pulse Oximetry Oxygen Delivery Method Oxygen Flow Rate 12/24/24 23:43 12/24/24 23:49 12/24/24 23:50 Temperature 99.9 F Pulse Rate 93 94 94 Respiratory Rate 11 L Blood Pressure 94/42 L 97/41 L 97/41 L Pulse Oximetry 95 Oxygen Delivery Method Nasal Cannula Oxygen Flow Rate 2 12/24/24 23:57 12/25/24 00:06 12/25/24 00:12 Temperature Pulse Rate 91 91 95 Respiratory Rate Blood Pressure 90/40 L 85/43 L 80/50 L Pulse Oximetry Oxygen Delivery Method Oxygen Flow Rate 12/25/24 00:13 12/25/24 00:24 12/25/24 00:24 Temperature 99.7 F 99.5 F Pulse Rate 92 92 Respiratory Rate 21 H Blood Pressure 80/50 L 85/34 L Pulse Oximetry 96 Oxygen Delivery Method Nasal Cannula Oxygen Flow Rate 2 12/25/24 00:33 12/25/24 00:45 12/25/24 00:58 Temperature Pulse Rate 92 91 91 Respiratory Rate Blood Pressure 86/41 L 80/43 L 81/42 L Pulse Oximetry Oxygen Delivery Method Oxygen Flow Rate 12/25/24 01:02 12/25/24 01:07 12/25/24 01:13 Temperature Pulse Rate 90 95 90 Respiratory Rate Blood Pressure 88/44 L 88/45 L 91/46 L Pulse Oximetry Oxygen Delivery Method Oxygen Flow Rate 12/25/24 01:13 12/25/24 01:25 12/25/24 01:33 Temperature 99.1 F Pulse Rate 91 92 94 Respiratory Rate 23 H Blood Pressure 91/46 L 90/44 L 90/50 L Pulse Oximetry 95 Oxygen Delivery Method Nasal Cannula Oxygen Flow Rate 2 12/25/24 01:34 12/25/24 01:34 12/25/24 01:36 Temperature 99.0 F Pulse Rate 95 91 Respiratory Rate 22 H Blood Pressure 90/50 L 91/45 L 85/46 L Pulse Oximetry 95 Oxygen Delivery Method Nasal Cannula Oxygen Flow Rate 2 12/25/24 03:08 12/25/24 03:40 Temperature 98.8 F 98.8 F Pulse Rate 98 98 Respiratory Rate 25 H 25 H Blood Pressure 90/49 L 90/49 L Pulse Oximetry 97 97 Oxygen Delivery Method Nasal Cannula Nasal Cannula Oxygen Flow Rate 2 2 BMI result Body Mass Index 20.5 Vital signs have been reviewed and appear to be correct. Hypotensive, tachycardia, tachypneic, febrile, hypoxic. Appearance: Alert. Oriented X1, pale Head: Normal external exam. Normocephalic. Atraumatic. No Streeter signs noted. No raccoon eyes noted Eyes: PERRLA. EOMI. Conjunctiva and sclera normal. Eyelids normal. ENT: TM's Normal. Pharynx normal. Uvula midline. Moist mucous membranes. No trismus noted. No drooling noted. No muffled voice noted. Neck: Normal inspection. Neck supple. FROM. No adenopathy. Thyroid Normal. No meningeal signs. No neck mass noted. CVS: Normal heart rate and rhythm. Heart sound normal. No murmurs noted. Pulses normal throughout. Respiratory: No respiratory distress. Painless inspiration. Breath sounds normal. No wheezes/rales/rhonchi noted. Chest nontender. No accessory muscle usage noted or decreased air movement noted. Abdomen: Soft, mild diffuse abdominal tenderness, no guarding, no rebound tenderness. Bowel sounds normal in all 4 quadrants. No distention noted. No organomegaly noted. No visible injury noted. Rectal exam: Hematochezia in the rectum. Back: No CVA tenderness. Full range of motion noted. Skin: Skin warm and dry. Normal skin color. Normal skin turgor. No rashes/lesions/lacerations noted. Extremities: No lower extremity edema. Extremities exhibit normal range of motion. Extremities nontender. Neuro: Cranial nerve exam: II-XII are grossly intact No motor deficit. No sensory deficit. Reflexes normal. Course Reevaluation(s) Reevaluation #1: FOCUSED EXAM: 79-YEAR-OLD MALE DNR/DNI came in from [facility] for generalized weakness, diarrhea, and nausea patient found to be in septic shock and GI rectal bleed, stable H&H, patient met criteria for septic shock with hypotension and lactic acidosis of 5.6 patient received a bolus of normal saline 1,428.81 mL without improvement of blood pressure then patient got 2 boluses of albumin, patient also received ceftriaxone and vancomycin. Patient is AAO x3, complain of no abdominal pain, CT of the abdomen and pelvis revealed chronic findings with no acute, H and H was stable, labs revealed CKD with creatinine slightly above his baseline, patient continue to be hypotensive on Levophed, local hospitals around [place] is closed for ICU transfer, case discussed with [facility] was accepted to [place] in [facility] to ICU. Will arrange for transportation with ALS. Estimated time of ambulance is 45 minutes. Time: 00:37 Reevaluation #2: Patient is AAO x3, improvement of lactic acid after hydration, blood pressure 85/46 Levophed is at 0.5 (max is 1) will add epinephrine as a 2nd pressor to support blood pressure, patient needed critical care ambulance transportation to [facility]. Time: 01:57 Medications Administered Discontinued Medications Generic Name Dose Route Start Last Admin Trade Name Freq PRN Reason Stop Dose Admin Ceftriaxone Sodium 1 gm 12/24/24 21:17 12/24/24 21:46 Ceftriaxone Sodium 1 Gm Vial IVPUSH 12/24/24 21:18 1 gm ONCE ONE Administration Sodium Chloride 1,428.81 mls @ 1,428.81 mls/hr 12/24/24 21:17 12/24/24 22:24 Ns 30 ml/kg infuse over 1 hr (1428.81 ml) 12/24/24 22:16 Infused IV Infusion .Q1H STA Norepinephrine Bitartrate 8 mg in 250 mls @ 0 mls/hr 12/24/24 23:00 12/25/24 01:36 Levophed IVCONT 0.5 mcg/kg/min .Q0M ESTEE 44.65 mls/hr Titration Protocol Per Protocol Albumin Human 100 mls @ 133.333 mls/hr 12/24/24 23:00 12/25/24 00:45 Kedbumin 25 % IV 12/25/24 00:44 Infused Q1H ESTEE Infusion Acetaminophen 1,000 mg in 100 mls @ 400 mls/hr 12/24/24 23:30 12/25/24 00:05 Ofirmev IV 12/24/24 23:44 Infused ONCE ONE Infusion Vancomycin HCl 1,000 mg/ 270 mls @ 270 mls/hr 12/24/24 23:55 12/25/24 03:40 Sodium Chloride IV 12/25/24 00:54 Infused ONCE ONE Infusion Procedures Central Line Placement Right IJ: Time Out Performed: Yes Patient Placed on Monitor/Pulse Ox: Yes MD Prep: mask, gown and gloves Central Line Prep: Povidone-Iodine 1% and Chlorhexidine scrub Local Anesthetic: lidocaine 1% Amount of anesthesia used (mL): 3 Ultrasound Used for Placement: Yes Central Line Lumen Inserted: triple Post Procedure: sutured in place, good blood return, all ports aspirated, flushed, capped and sterile dressing applied Post Procedure X-Ray: tip of catheter in good position and no pneumothorax seen Patient Tolerated Procedure: well Complications: none Medical Decision Making Differential Diagnosis Differential Diagnoses: The differential diagnosis associated with the presentation includes (Pneumonia, UTI, septic shock, intra-abdominal pathology, GI bleed, CKD.) Admission/Observation Consideration of admission/observation: Escalation of care including admission/observation considered Consult Healthcare Provider Management of the patient was discussed with: [employer] (Dr. Maykel Ramirez ) Lab Data MDM Lab Attestation statement: I reviewed the patient's lab results. 12/24/24 21:36 12/24/24 21:36 Labs: Lab Results 12/24/24 12/24/24 12/24/24 Range/Units 21:36 21:54 21:57 WBC 12.7 H (4.8-10.8) X10*3/uL RBC 4.37 L (4.60-5.80) X10*6/uL Hgb 13.0 L (14.0-18.0) g/dl Hct 40.7 L (42.0-52.0) % MCV 93.1 (80.0-98.0) fL MCH 29.7 (27.0-33.0) pg MCHC 31.9 (31.0-36.0) g/dl RDW 13.3 (11.0-16.0) % Plt Count 205 (160-400) X10*3/uL MPV 9.0 L (9.4-12.4) fL Immature Gran % (Auto) Cancelled Neut % (Auto) Cancelled Lymph % (Auto) Cancelled [place] % (Auto) Cancelled Eos % (Auto) Cancelled Baso % (Auto) Cancelled Lymph # (Auto) Cancelled [place] # (Auto) Cancelled Eos # (Auto) Cancelled Baso # (Auto) Cancelled Abs Immat Gran (auto) Cancelled Absolute Neuts (auto) Cancelled Absolute Nucleated RBC 0.000 (0.0-0.012) X10*3/uL Nucleated RBC % (auto) 0.0 (0.0-0.2) /100WBC Neutrophils % (Manual) 91 H (45-73) % Band Neutrophils % 8 H (3-5) % Lymphocytes % (Manual) 1 L (20-40) % Abs Neuts (Manual) 12.6 H (2.0-8.3) X10*3/uL Lymphocytes # (Manual) 0.1 L (1.2-4.9) X10*3/uL Hypersegmented Neuts PRESENT Smudge Cells PRESENT Toxic Vacuolation PRESENT WBC Morphology Comment SEE NOTE Platelet Estimate NORMAL (NORMAL) Giant Platelets PRESENT Plt Morphology Comment NOTED RBC Morphology NOTED Microcytosis 2+ (15-30) /OIF Tear Drop Cells 1+ (0-2) /OIF Schistocytes 2+ (3-5) /OIF PT 14.3 H (10.9-12.4) SEC INR 1.2 H (0.9-1.1) VBG pH (7.32-7.43) VBG pCO2 mmHg VBG pO2 mmHg VBG HCO3 (22-26) mmol/L VBG O2 Saturation % VBG Base Excess mmol/L Sodium 140 (135-145) mmol/L Potassium 3.7 (3.3-5.1) mmol/L Chloride 113 H (96-108) mmol/L Carbon Dioxide 14 L (22-29) mmol/L Anion Gap 17 (12-20) BUN 36 H (9-16) mg/dL Creatinine 2.65 H (0.5-1.4) mg/dL Estim Creat Clear Calc 14.7 Estimated GFR 23 Random Glucose 85 (60-115) mg/dL Lactic Acid 5.6 H* (0.5-2.0) mmol/L Lactic Acid F/U @ 2Hr (0.5-2.0) mmol/L Lactic Acid F/U @ 4Hr (0.5-2.0) mmol/L Calcium 8.4 D (8.4-10.2) mg/dL Total Bilirubin 0.3 (0.0-1.0) mg/dL Direct Bilirubin 0.1 (0.0-0.5) mg/dL AST 62 H (5-37) U/L ALT 18 (0-40) U/L Alkaline Phosphatase 86 (39-117) U/L Troponin I High Sens 257.0 H* (<3.5-35.0) ng/L B-Natriuretic Peptide 800 H (<100) pg/mL Total Protein 6.2 L (6.5-8.0) g/dL Albumin 3.0 L (3.5-5.0) g/dL Lipase 40 (8-78) U/L Urine Color Urine Appearance Urine pH (5.0-9.0) Ur Specific [place] (1.005-1.025) Urine Protein (Neg-Trace) mg/dL Urine Glucose (UA) (Negative) mg/dL Urine Ketones (Negative) mg/dL Urine Blood (Negative) Urine Nitrite (Negative) Ur Leukocyte Esterase (Negative) Urine RBC (0-2) /HPF Urine WBC (0-5) /HPF Urine WBC Clumps Ur Squamous Epith Cells (0-2) /HPF Ur Transition Epith Cell Ur Renal Epithelial Cell Urine Bacteria (None Seen) Epithelial Casts Hyaline Casts (0-2) /LPF Granular Casts RBC Casts Stool Occult Blood (NEGATIVE) Influenza Type A (PCR) NEGATIVE (Negative) Influenza Type B (PCR) NEGATIVE (Negative) RSV RNA Qual (PCR) NEGATIVE (Negative) SARS-CoV-2 RNA (RT-PCR) NEGATIVE (Negative) Blood Type O Positive Antibody Screen NEGATIVE Crossmatch See Detail 12/24/24 12/24/24 12/24/24 Range/Units 22:04 22:10 23:41 WBC (4.8-10.8) X10*3/uL RBC (4.60-5.80) X10*6/uL Hgb (14.0-18.0) g/dl Hct (42.0-52.0) % MCV (80.0-98.0) fL MCH (27.0-33.0) pg MCHC (31.0-36.0) g/dl RDW (11.0-16.0) % Plt Count (160-400) X10*3/uL MPV (9.4-12.4) fL Immature Gran % (Auto) Neut % (Auto) Lymph % (Auto) [place] % (Auto) Eos % (Auto) Baso % (Auto) Lymph # (Auto) [place] # (Auto) Eos # (Auto) Baso # (Auto) Abs Immat Gran (auto) Absolute Neuts (auto) Absolute Nucleated RBC (0.0-0.012) X10*3/uL Nucleated RBC % (auto) (0.0-0.2) /100WBC Neutrophils % (Manual) (45-73) % Band Neutrophils % (3-5) % Lymphocytes % (Manual) (20-40) % Abs Neuts (Manual) (2.0-8.3) X10*3/uL Lymphocytes # (Manual) (1.2-4.9) X10*3/uL Hypersegmented Neuts Smudge Cells Toxic Vacuolation WBC Morphology Comment Platelet Estimate (NORMAL) Giant Platelets Plt Morphology Comment RBC Morphology Microcytosis /OIF Tear Drop Cells /OIF Schistocytes /OIF PT (10.9-12.4) SEC INR (0.9-1.1) VBG pH 7.22 L (7.32-7.43) VBG pCO2 41 mmHg VBG pO2 32 mmHg VBG HCO3 17 L (22-26) mmol/L VBG O2 Saturation 45.0 % VBG Base Excess -9.7 mmol/L Sodium (135-145) mmol/L Potassium (3.3-5.1) mmol/L Chloride (96-108) mmol/L Carbon Dioxide (22-29) mmol/L Anion Gap (12-20) BUN (9-16) mg/dL Creatinine (0.5-1.4) mg/dL Estim Creat Clear Calc Estimated GFR Random Glucose (60-115) mg/dL Lactic Acid (0.5-2.0) mmol/L Lactic Acid F/U @ 2Hr (0.5-2.0) mmol/L Lactic Acid F/U @ 4Hr (0.5-2.0) mmol/L Calcium (8.4-10.2) mg/dL Total Bilirubin (0.0-1.0) mg/dL Direct Bilirubin (0.0-0.5) mg/dL AST (5-37) U/L ALT (0-40) U/L Alkaline Phosphatase (39-117) U/L Troponin I High Sens 283.6 H* (<3.5-35.0) ng/L B-Natriuretic Peptide (<100) pg/mL Total Protein (6.5-8.0) g/dL Albumin (3.5-5.0) g/dL Lipase (8-78) U/L Urine Color RED Urine Appearance Turbid Urine pH 6.0 (5.0-9.0) Ur Specific [place] 1.020 (1.005-1.025) Urine Protein 100 (2+) H (Neg-Trace) mg/dL Urine Glucose (UA) Negative (Negative) mg/dL Urine Ketones Negative (Negative) mg/dL Urine Blood Large (3+) H (Negative) Urine Nitrite Negative (Negative) Ur Leukocyte Esterase Large (3+) H (Negative) Urine RBC >20 H (0-2) /HPF Urine WBC 11-20 (0-5) /HPF Urine WBC Clumps Present Ur Squamous Epith Cells 3-5 (0-2) /HPF Ur Transition Epith Cell Present Ur Renal Epithelial Cell Present Urine Bacteria 2+ (None Seen) Epithelial Casts Present Hyaline Casts 6-10 (0-2) /LPF Granular Casts Present RBC Casts Present Stool Occult Blood POSITIVE (NEGATIVE) Influenza Type A (PCR) (Negative) Influenza Type B (PCR) (Negative) RSV RNA Qual (PCR) (Negative) SARS-CoV-2 RNA (RT-PCR) (Negative) Blood Type Antibody Screen Crossmatch 12/25/24 12/25/24 Range/Units 00:30 03:10 WBC (4.8-10.8) X10*3/uL RBC (4.60-5.80) X10*6/uL Hgb (14.0-18.0) g/dl Hct (42.0-52.0) % MCV (80.0-98.0) fL MCH (27.0-33.0) pg MCHC (31.0-36.0) g/dl RDW (11.0-16.0) % Plt Count (160-400) X10*3/uL MPV (9.4-12.4) fL Immature Gran % (Auto) Neut % (Auto) Lymph % (Auto) [place] % (Auto) Eos % (Auto) Baso % (Auto) Lymph # (Auto) [place] # (Auto) Eos # (Auto) Baso # (Auto) Abs Immat Gran (auto) Absolute Neuts (auto) Absolute Nucleated RBC (0.0-0.012) X10*3/uL Nucleated RBC % (auto) (0.0-0.2) /100WBC Neutrophils % (Manual) (45-73) % Band Neutrophils % (3-5) % Lymphocytes % (Manual) (20-40) % Abs Neuts (Manual) (2.0-8.3) X10*3/uL Lymphocytes # (Manual) (1.2-4.9) X10*3/uL Hypersegmented Neuts Smudge Cells Toxic Vacuolation WBC Morphology Comment Platelet Estimate (NORMAL) Giant Platelets Plt Morphology Comment RBC Morphology Microcytosis /OIF Tear Drop Cells /OIF Schistocytes /OIF PT (10.9-12.4) SEC INR (0.9-1.1) VBG pH (7.32-7.43) VBG pCO2 mmHg VBG pO2 mmHg VBG HCO3 (22-26) mmol/L VBG O2 Saturation % VBG Base Excess mmol/L Sodium (135-145) mmol/L Potassium (3.3-5.1) mmol/L Chloride (96-108) mmol/L Carbon Dioxide (22-29) mmol/L Anion Gap (12-20) BUN (9-16) mg/dL Creatinine (0.5-1.4) mg/dL Estim Creat Clear Calc Estimated GFR Random Glucose (60-115) mg/dL Lactic Acid (0.5-2.0) mmol/L Lactic Acid F/U @ 2Hr 3.6 H* (0.5-2.0) mmol/L Lactic Acid F/U @ 4Hr 3.5 H* (0.5-2.0) mmol/L Calcium (8.4-10.2) mg/dL Total Bilirubin (0.0-1.0) mg/dL Direct Bilirubin (0.0-0.5) mg/dL AST (5-37) U/L ALT (0-40) U/L Alkaline Phosphatase (39-117) U/L Troponin I High Sens (<3.5-35.0) ng/L B-Natriuretic Peptide (<100) pg/mL Total Protein (6.5-8.0) g/dL Albumin (3.5-5.0) g/dL Lipase (8-78) U/L Urine Color Urine Appearance Urine pH (5.0-9.0) Ur Specific [place] (1.005-1.025) Urine Protein (Neg-Trace) mg/dL Urine Glucose (UA) (Negative) mg/dL Urine Ketones (Negative) mg/dL Urine Blood (Negative) Urine Nitrite (Negative) Ur Leukocyte Esterase (Negative) Urine RBC (0-2) /HPF Urine WBC (0-5) /HPF Urine WBC Clumps Ur Squamous Epith Cells (0-2) /HPF Ur Transition Epith Cell Ur Renal Epithelial Cell Urine Bacteria (None Seen) Epithelial Casts Hyaline Casts (0-2) /LPF Granular Casts RBC Casts Stool Occult Blood (NEGATIVE) Influenza Type A (PCR) (Negative) Influenza Type B (PCR) (Negative) RSV RNA Qual (PCR) (Negative) SARS-CoV-2 RNA (RT-PCR) (Negative) Blood Type Antibody Screen Crossmatch Independent Interpretation I performed an independent interpretation of an: Plain X-Ray (Chest:Left base streaky opacity which could be atelectasis, aspiration or infection. Enlargement of the main pulmonary artery, a finding that can be associated with pulmonary artery hypertension.) and CT Scan (Abdomen and pelvis:. Volume loss and lung opacity at the left lung base which could be atelectasis, aspiration or infection. 2. Unchanged right renal staghorn calculus and mid right ureter stone without evidence of acute obstructive uropathy. 3. Prostatomegaly. No gas seen in the prostate gland. 4) Radiology Impression Discussion of test interpretation with radiology: I have reviewed the radiologist's reading. Critical Care Time Critical Care Time Critical Care Time: Yes Total Critical Care Time: 60 Attestation: The patient was critically ill with a high probability of imminent or life- threatening deterioration. I spent greater than 30 minutes of discontinuous time evaluating the patient, delivering critical care at the bedside, discussing evaluating data with consultants. Critical care time does not include time spent performing separately billable procedures or teaching. Time spent performing critical care was 60 minutes. Discharge Plan Discharge Clinical Impression: Septic shock, Acute UTI, Pneumonia, CKD (chronic kidney disease), Elevated troponin Patient Disposition: [facility] Transfer Details: To ICU at [facility] Prescriptions: No Action aspirin 81 mg Tablet,Delayed Release (Dr/Ec) 81 mg PO DAILY ferrous sulfate 324 mg (65 mg iron) Tablet,Delayed Release (Dr/Ec) 324 mg PO DAILY Eliquis 2.5 mg Tablet 2.5 mg PO BID Qty: 180 0RF atorvastatin 80 mg tablet 80 mg PO BEDTIME metoprolol succinate 100 mg tablet extended release 24 hr 100 mg PO DAILY finasteride 5 mg tablet 5 mg PO DAILY 90 Days Qty: 90 1RF terazosin 5 mg capsule 5 mg PO BEDTIME 90 Days Qty: 90 1RF Interventions: Acute Care Transfer Worksheet (ED) Last Done: 12/25/24 03:40 Discharge Date/Time: 12/25/24 03:41 Print Language: Hungarian
[2024-12-24] MEDS: 0.9 % Sodium Chloride 1,428.81 ML 1428.81 ML IV (21:24)
[2024-12-24 21:42] LABS: Hematocrit 40.7 % (42.0-52.0); Mean Corpuscular HGB Conc 31.9 g/dl (31.0-36.0); Mean Corpuscular Hemoglobin 29.7 pg (27.0-33.0); Mean Corpuscular Volume 93.1 fL (80.0-98.0); Platelet Count 205 X10*3/uL (160-400); Red Blood Count 4.37 X10*6/uL (4.60-5.80); Red Cell Distribution Width 13.3 % (11.0-16.0)
[2024-12-24 21:43] LABS: WBC ABN SCTR FOR CBC 1
[2024-12-24] MEDS: cefTRIAXone sodium 1 GM VIAL IVPUSH (21:46)
[2024-12-24 22:02] LABS: Alanine Aminotransferase 18 U/L (0-40); Alkaline Phosphatase 86 U/L (39-117); Anion Gap 17 (12-20); Aspartate Amino Transferase 62 U/L (5-37); Bilirubin Direct 0.1 mg/dL (0.0-0.5); Bilirubin Total 0.3 mg/dL (0.0-1.0); Blood Urea Nitrogen 36 mg/dL (9-16); Calcium 8.4 mg/dL (8.4-10.2); Carbon Dioxide 14 mmol/L (22-29); Chloride 113 mmol/L (96-108); Creatinine Clr Calc Pharmacy 14.7; Estimated Glomerular Filt Rate 23; Glucose Random 85 mg/dL (60-115); Lipase 40 U/L (8-78); Potassium 3.7 mmol/L (3.3-5.1); Sodium 140 mmol/L (135-145); Total Protein 6.2 g/dL (6.5-8.0)
--- NOTE | 2024-12-24 22:05 | MHC.EDTECH ---
Patient was biba from snf ,vitals taken ,blood drawn including both sets of blood culture ,lactic acid ,rsv /covid swab all sent to lab ,Patient labs was delay because Patient was a very difficult stick ,ekg taken and was read by Provider ,Patient was hooked up to front desk monitor ,Patient was soiled ,care given ,stool sample collected and sent to lab .
[2024-12-24 22:08] LABS: VBG Base Excess -9.7 mmol/L; VBG HCO3 17 mmol/L (22-26); VBG pCO2 41 mmHg; VBG pH 7.22 (7.32-7.43); VBG pO2 32 mmHg
[2024-12-24 22:10] LABS: Venous Blood Gas Refer to POC result
--- NOTE | 2024-12-24 22:10 | PC.NURSE ---
Prior to insertion of indwelling catheter patient noted to have hardened areas around top of penis, Dr. Aviles to bedside, and okay to continue placement. During insertion patient had large amount of blood in catheter, balloon inflated with 10ml NS and urine sample sent to lab
[2024-12-24 22:11] LABS: OBS Int Ctl Valid YES; OBS1 POSITIVE (NEGATIVE)
[2024-12-24 22:20] LABS: Lactic Acid 5.6 mmol/L (0.5-2.0)
[2024-12-24 22:24] LABS: B Type Natriuretic Peptide 800 pg/mL (<100)
[2024-12-24 22:29] LABS: INTERNATIONAL NORM RATIO 1.2 (0.9-1.1); Prothrombin Time 14.3 SEC (10.9-12.4)
[2024-12-24 22:34] LABS: Appearance Urine Turbid; Color Urine RED; Glucose Urine UA Negative (Negative); UMIC TRIGGER UACC YES; Urine Blood Large (3+) (Negative); Urine Ketones Negative (Negative); Urine Protein 100 (2+) mg/dL (Neg-Trace)
[2024-12-24 22:36] LABS: Band Neutrophils Percent 8 % (3-5); Giant Platelet PRESENT; Lymphocytes Percent Manual 1 % (20-40); Microcytosis 2+ (15-30) /OIF; Neutrophils Percent Manual 91 % (45-73); Platelet Estimate NORMAL (NORMAL); Platelet Morphology Comment NOTED; RBC Morphology NOTED; Schistocytes 2+ (3-5) /OIF
[2024-12-24 22:37] LABS: Hypersegmented Neutrophils PRESENT; Tear Drop Cells 1+ (0-2) /OIF
[2024-12-24 22:38] LABS: Smudge Cells PRESENT; Toxic Vacuolation PRESENT
[2024-12-24 22:40] LABS: Lymphocytes Absolute Manual 0.1 X10*3/uL (1.2-4.9); Neutrophils Absolute Manual 12.6 X10*3/uL (2.0-8.3); White Blood Count 12.7 X10*3/uL (4.8-10.8)
[2024-12-24 22:42] LABS: Leukocyte Esterase Urine Large (3+) (Negative); Nitrite Urine Negative (Negative); RBC Urine >20 /HPF (0-2); UACC Culture Trigger YES; WBC Clumps Urine Present
[2024-12-24 22:43] LABS: Bacteria Urine 2+ (None Seen); Epith (RTE) Cast Present; Granular Casts Urine Present; Red Blood Cell Casts Urine Present; Renal Epithelial Cells Urine Present; Transitional Epi Cells Urine Present
[2024-12-24 22:46] LABS: Influenza A PCR NEGATIVE (Negative); Influenza B PCR NEGATIVE (Negative); Resp Syncy Virus RNA Qual PCR NEGATIVE (Negative); SARS COV2 PCR INHOUSE NEGATIVE (Negative)
--- NOTE | 2024-12-24 22:47 | PC.NURSE ---
provider aware of patient hypotension, see MAR for orders
[2024-12-24] MEDS: Albumin Human 25 % 100 ML 133.33 ML IV ×2 (23:00→23:45)
--- NOTE | 2024-12-24 23:04 | PC.NURSE ---
Per Dr. Aviles give albumin first and then if still hypotensive levophed
[2024-12-24] MEDS: Norepinephrine Bitartrate/D5W 8 MG/250 ML PLAST..BAG 4.47 MG IVCONT (23:19)
[2024-12-24] MEDS: Acetaminophen 1,000 MG/100 ML PIGGYBACK 400 MG IV (23:47)
[2024-12-25] VITALS (16 sets, daily range): BP systolic 80–91; BP diastolic 34–50; PULSE 90–98; RESP 21–25; TEMP 37.1–37.6; O2SAT 95–97
[2024-12-25 00:02] LABS: Reflex Lactate? Lactic Acid Added
[2024-12-25 00:30] LABS: Troponin-I High Sensitivity 283.6 ng/L (<3.5-35.0)
[2024-12-25] MEDS: vancomycin HCL 1,000 MG in 0.9 % Sodium Chloride 250 ML 270 MG IV (01:00)
[2024-12-25 01:10] LABS: ~Lactic Acid-LAB USE ONLY 3.6 mmol/L (0.5-2.0)
--- NOTE | 2024-12-25 02:31 | PC.NURSE ---
DR. COLÓN AT BEDSIDE TO PLACE CENTRAL LINE IN RIGHT CAROTID
[2024-12-25 02:34] LABS: Reflex Lactate? 2 Y
[2024-12-25 03:31] LABS: ~Lactic Acid-LAB USE ONLY 3.5 mmol/L (0.5-2.0)
--- NOTE | 2024-12-26 03:17 | PC.NURSE ---
critical blood culture result received from Chandana in lab, +BC 1st set gram + cocci in [facility] called to report findings. results discussed with zarina gordillo [phone]
== END 2024-12-25 03:41 | disposition short-term general hospital (02) ==
PROVIDERS: Emergency Provider Emergency Medicine
DX: J18.9 Pneumonia, unspecified organism (principal); R65.21 Severe sepsis with septic shock; N39.0 Urinary tract infection, site not specified; R11.0 Nausea; I95.9 Hypotension, unspecified; I12.9 Hypertensive chronic kidney disease with stage 1 through stage 4 chronic kidney disease, or unspecified chronic kidney disease; N18.9 Chronic kidney disease, unspecified; R06.02 Shortness of breath; R00.0 Tachycardia, unspecified; K92.1 Melena; K92.2 Gastrointestinal hemorrhage, unspecified; Z79.01 Long term (current) use of anticoagulants; Z79.899 Other long term (current) drug therapy; Z03.818 Encounter for observation for suspected exposure to other biological agents ruled out
CPT/HCPCS: 0241U; 36415; 36556; 36571; 71045; 74176; 80048; 80076; 81001; 82272; 82803; 83605; 83690; 83880; 84484; 85007; 85027; 85610; 86850; 86900; 86901; 87040; 87077; 87086; 87186; 87205; 93005; 96361; 96365; 96366; 96367; 96375; 99285; J0131; J0696; J3370; P9047

== ENCOUNTER → 2024-12-24 20:54 | Outpatient (BNV) | payer MEDICARE, SELFPAY | PROVIDERS: Emergency Provider Emergency Medicine; Visit Provider Internal Medicine Cardiovascular Disease | DX: R00.0 Tachycardia, unspecified (principal) | CPT/HCPCS: 93010 ==

== ENCOUNTER → 2024-12-24 21:16 | Outpatient (BNV) | payer MEDICARE, SELFPAY | PROVIDERS: Emergency Provider Emergency Medicine; Visit Provider Radiology Diagnostic Radiology | DX: Z95.9 Presence of cardiac and vascular implant and graft, unspecified (principal); K62.5 Hemorrhage of anus and rectum | CPT/HCPCS: 71045; 74176 ==

== ENCOUNTER → 2024-12-25 02:58 | Outpatient (BNV) | payer MEDICARE, SELFPAY | PROVIDERS: Emergency Provider Emergency Medicine; Visit Provider General Practice | DX: A41.9 Sepsis, unspecified organism (principal) | CPT/HCPCS: 71045 ==

== ENCOUNTER → 2025-01-19 08:54 | Outpatient (BNVA) | payer MEDICARE, SELFPAY | PROVIDERS: Visit Provider Urology | DX: N40.1 Benign prostatic hyperplasia with lower urinary tract symptoms (principal); R33.9 Retention of urine, unspecified | CPT/HCPCS: 51700; 51702; 51798 ==

== ENCOUNTER 2025-02-01 20:03 | Emergency (ER) | payer MEDICARE, SELFPAY ==
[2025-02-01 20:08] VITALS: BP 111/70; PULSE 90; O2SAT 96
[2025-02-01 20:09] VITALS: BP 97/54; PULSE 85; RESP 19; TEMP 36.8; O2SAT 96; BMI 22.3
[2025-02-01 23:10] LABS: Appearance Urine Cloudy; Color Urine Yellow; Glucose Urine UA Negative (Negative); Leukocyte Esterase Urine Large (3+) (Negative); Nitrite Urine Negative (Negative); UMIC TRIGGER UACC YES; Urine Blood Large (3+) (Negative); Urine Ketones Negative (Negative); Urine Protein 100 (2+) mg/dL (Neg-Trace)
[2025-02-01 23:15] VITALS: BP 102/51; PULSE 84; RESP 17; O2SAT 96
[2025-02-01 23:17] LABS: Bacteria Urine 4+ (None Seen); Hyaline Casts Urine 0-2 /LPF (0-2); RBC Urine >20 /HPF (0-2); Squamous Epithelial Cell Urine 0-2 /HPF (0-2); UACC Culture Trigger YES; WBC Urine >50 /HPF (0-5)
--- NOTE | 2025-02-01 23:24 | ED.MALEGU ---
HPI - Male Genitourinary General Chief complaint: Urogenital-Male Stated complaint: catheter leaking Time Seen by Provider: 02/01/25 21:41 Source: patient Mode of arrival: EMS Limitations: no limitations History of Present Illness ED Provider: HPI Narrative: Patient with enlarged prostate with indwelling Guerrero catheter which was placed last month comes here at is leaking around the no fever no chills no abdominal pain Related Data Home Medications ?Medication ?Instructions ?Recorded ?Confirmed atorvastatin 80 mg tablet 80 mg PO BEDTIME 04/09/23 12/08/23 metoprolol succinate 100 mg 100 mg PO DAILY 04/09/23 12/08/23 tablet,extended release 24 hr aspirin 81 mg tablet,delayed 81 mg PO DAILY 12/08/23 12/08/23 release ferrous sulfate 324 mg (65 mg 324 mg PO DAILY 12/08/23 12/08/23 iron) tablet,delayed release Previous Rx's ?Medication ?Instructions ?Recorded apixaban 2.5 mg tablet (Eliquis) 2.5 mg PO BID #180 tabs 12/19/23 finasteride 5 mg tablet 5 mg PO DAILY 90 days #90 tabs 10/28/24 terazosin 5 mg capsule 5 mg PO BEDTIME 90 days #90 caps 10/28/24 Allergies Allergy/AdvReac Type Severity Reaction Status Date / Time No Known Allergies Allergy Verified 02/01/25 20:15 Review of Systems Review of Systems: Yes all other systems are reviewed and are negative [facility] Past Medical History Medical History BPH (benign prostatic hyperplasia) PAD (peripheral artery disease) HLD (hyperlipidemia) HTN (hypertension) Social History Social History Housing: Assisted Living Facility Alcohol intake: never Patient Tobacco Use Status: Never used Tobacco Smoked in Last 30 Days: No Use of substances other than those prescribed or required for medical reasons: No Advance Directives: Yes Advance Directives on File: Yes Advance Directives Date on File: 12/08/23 service: No Physical Exam Vital Signs: Vital Signs: Last Vital Signs Temp 98.2 F 02/01/25 20:09 Pulse 84 02/01/25 23:15 Resp 17 02/01/25 23:15 BP 102/51 L 02/01/25 23:15 Pulse Ox 96 02/01/25 23:15 O2 Del Method Room Air 02/01/25 23:15 BMI result Body Mass Index 22.3 Appearance: Alert. Oriented X3. No acute distress. Eyes: PERRLA, No Nystagmus ENT: Pharynx normal. Oral Mucosa moist Neck: Normal inspection. Neck supple. CVS: Normal heart rate and rhythm. Pulses normal. Respiratory: No respiratory distress. Equal air entry bilateral, no wheezing/rales/rhonchi Abdomen: Soft and nontender. Bowel sounds are present, no mass palpable, no CVA tenderness : Guerrero catheter in place Skin: Skin warm and dry. Normal skin color. Normal skin turgor. Extremities: No lower extremity edema. No calf tenderness Neuro: Oriented X 3. No motor deficit. No sensory deficit. Medical Decision Making Medical Decision Making MDM Narrative: Patient with blocked Guerrero catheter which was replaced urine showed WBCs with symptomatic patient has a chronic colonization in the past at this time no signs of infection Lab Data Labs: Lab Results 02/01/25 Range/Units 23:04 Urine Color Yellow Urine Appearance Cloudy Urine pH 6.0 (5.0-9.0) Ur Specific [place] 1.020 (1.005-1.025) Urine Protein 100 (2+) H (Neg-Trace) mg/dL Urine Glucose (UA) Negative (Negative) mg/dL Urine Ketones Negative (Negative) mg/dL Urine Blood Large (3+) H (Negative) Urine Nitrite Negative (Negative) Ur Leukocyte Esterase Large (3+) H (Negative) Urine RBC >20 H (0-2) /HPF Urine WBC >50 H (0-5) /HPF Ur Squamous Epith Cells 0-2 (0-2) /HPF Urine Bacteria 4+ (None Seen) Hyaline Casts 0-2 (0-2) /LPF Discharge Plan Discharge Clinical Impression: Complication, blocked Guerrero catheter Patient Disposition: Xfer LTC Transfer Details: Guerrero catheter was replaced, care as advised Instructions: Guerrero Catheter Placement and Care (ED) Prescriptions: No Action aspirin 81 mg Tablet,Delayed Release (Dr/Ec) 81 mg PO DAILY ferrous sulfate 324 mg (65 mg iron) Tablet,Delayed Release (Dr/Ec) 324 mg PO DAILY Eliquis 2.5 mg Tablet 2.5 mg PO BID Qty: 180 0RF atorvastatin 80 mg tablet 80 mg PO BEDTIME metoprolol succinate 100 mg tablet extended release 24 hr 100 mg PO DAILY finasteride 5 mg tablet 5 mg PO DAILY 90 Days Qty: 90 1RF terazosin 5 mg capsule 5 mg PO BEDTIME 90 Days Qty: 90 1RF Print Language: [place]
[2025-02-02 01:28] VITALS: BP 104/59; PULSE 84; RESP 16; TEMP 36.7; O2SAT 95
[2025-02-02 01:29] VITALS: BP 104/59; PULSE 84; RESP 16; TEMP 36.7; O2SAT 95
== END 2025-02-02 01:32 ==
PROVIDERS: Emergency Provider Internal Medicine; PCP Internal Medicine
DX: T83.098A Other mechanical complication of other urinary catheter, initial encounter (principal); Y84.6 Urinary catheterization as the cause of abnormal reaction of the patient, or of later complication, without mention of misadventure at the time of the procedure; Y92.9 Unspecified place or not applicable
CPT/HCPCS: 51702; 81001; 87086; 87088; 87186; 99283; 99284

== ENCOUNTER 2025-03-06 09:32 | Outpatient (REF) | payer MEDICARE, SELFPAY ==
[2025-03-06 16:45] LABS: Urine Cytology See Pathology rpt
== END 2025-03-06 09:33 | disposition home or self-care (01) ==
LOC: HO.LAB 09:32
PROVIDERS: PCP Internal Medicine; Visit Provider Urology
DX: N40.1 Benign prostatic hyperplasia with lower urinary tract symptoms (principal); N13.8 Other obstructive and reflux uropathy; R33.9 Retention of urine, unspecified; N20.0 Calculus of kidney; Z13.9 Encounter for screening, unspecified
CPT/HCPCS: 51798; 81003; 88112; 99212

== ENCOUNTER 2025-03-06 09:32 | Outpatient (AMB) | payer MEDICARE, SELFPAY ==
--- NOTE | 2025-03-06 09:40 | MHC.OFFVIS ---
Intake Visit Reasons: 6w/PVR Intake Note: Patient is present for 6W/PVR Urology Medication:TERAZOSIN,FINASTERIDE Antibiotic Allergy:NONE Blood Thinner:APIXABAN,ASPIRIN Last PVR:69ML'S Todays PVR:104ML'S Slat Pickler Required: No Allergies No Known Allergies Allergy (Verified 03/06/25 09:42) HPI Comments Details: Mark is a pleasant male. He is a patient of Dr. Chase. He is seen for the following urologic conditions - recurrent urinary tract infection - nephrolithiasis staghorn - lower urinary tract symptoms PSA 12/30 5.2 PVR 100 cc UA inflammation +blood Six-month follow-up Urinary Symptoms Review - Improved urination with current medications (finasteride and terazosin) - No pain during urination - Catheter removed two weeks ago Lower urinary tract symptoms Current therapy includes finasteride and tamsulosin PSA 07/[address] Scan - Right renal staghorn calculi measuring up to approximately 2.8 cm in maximal dimension. Right renal parenchymal atrophy and scarring. Approximately 0.8 cm right ureteral stone 12/30 - There is a 2.8 cm staghorn calculus in the right kidney and there is marked atrophy of the right kidney, similar to prior. Unchanged from prior is a 4 mm calcified stone in the mid right ureter. There is no right-sided hydronephrosis. Cr - 2.65 PFSH Medical History BPH (benign prostatic hyperplasia) PAD (peripheral artery disease) HLD (hyperlipidemia) HTN (hypertension) Social History Housing: Assisted Living Facility Alcohol intake: never Patient Tobacco Use Status: Never used Tobacco Advance Directives Date on File: 12/08/23 service: No Review of Systems Const Denies chills and Denies fever(s) Card Reports no additional complaints and Denies syncope Resp Denies cough GI Denies abdominal pain and Denies heartburn Reports as per HPI and Denies change in libido Neuro Denies syncope Psych Denies change in libido Endo Denies change in libido Physical Exam Const General: cooperative, healthy appearing, comfortable and no acute distress Orientation/consciousness: patient oriented x3 HEENT Face and sinus: Yes normal facial exam Mouth: moist mucous membranes Neck Neck: Yes normal visual inspection, Yes full ROM and Yes trachea midline Chest Chest palpation & inspection: normal inspection of the chest Resp Effort & Inspection: normal respiratory effort, able to speak in complete sentences and no respiratory distress GI Inspection: Yes normal to inspection Back/Spine/Pelvis Cervical Spine: normal cervical lordosis Thoracic/Lumbar Spine: thoracic and lumbar spine normal to inspection Skin General skin exam: no rashes or lesions noted Neuro General: patient oriented x3, gait normal, tone normal and moves all extremities Extrem General: Yes normal to inspection and Yes capillary refill normal Office Procedures Post Void Residual Post Residual Void Post Void Residual (PVR): [id number] Void Residual by ultrasound Assessment & Plan Assessment & Plan (1) BPH (benign prostatic hyperplasia): Code(s): N40.0 - Benign prostatic hyperplasia without lower urinary tract symptoms Category: Medical (2) Incomplete emptying of bladder due to benign prostatic hyperplasia: Code(s): N40.1 - Benign prostatic hyperplasia with lower urinary tract symptoms; R33.9 - Retention of urine, unspecified Category: Medical (3) Staghorn calculus: Code(s): N20.0 - Calculus of kidney Category: Medical Plan Plan 1. Urinary Tract Infection Continue folic acid. Monitor symptoms. Reassess in six months. 2. Ureteric Stone Symptomatic monitoring. No immediate intervention. Re-evaluate in six months. 3. Medication Management Finasteride And Terazosin Continue current medications. Evaluate effectiveness at next visit. Discussion Notes I discussed with the patient the current management of his urinary tract infection and the minimally symptomatic ureteric stone. We agreed on continuing the current treatment with folic acid for the infection and monitoring the stone as it remains largely asymptomatic. Both risks and benefits were reviewed, notably that the current treatment provides adequate symptom relief. We decided that, given the improvement noted, no changes in treatment are necessary at this time. The patient was informed of the six-month follow-up plan, and we discussed signs or symptoms that would warrant earlier intervention. Patient Instructions - Continue taking folic acid as prescribed. - Maintain current use of finasteride and terazosin. - Pay attention to any changes in urinary symptoms. - Plan to return for follow-up in six months. - Report any new pain, difficulties in urination, or other urinary symptoms immediately. Orders: Orders Urine Cytology Today N40.1 - Benign prostatic hyperplasia with lower urinary tract symptoms, R33.9 - Retention of urine, unspecified Medications: Refilled terazosin 5 mg PO BEDTIME 90 days 90 caps 1RF N40.0 - Benign prostatic hyperplasia without lower urinary tract symptoms, N40.1 - Benign prostatic hyperplasia with lower urinary tract symptoms, R35.0 - Frequency of micturition finasteride 5 mg PO DAILY 90 days 90 tabs 1RF N40.0 - Benign prostatic hyperplasia without lower urinary tract symptoms Patient Instructions: This note is constructed using voice recognition software. While every effort has been made to ensure accuracy sponge clipper errors may have been included. Imaging studies, laboratory and physical exam results were discussed and reviewed in detail. No major barriers to patient understanding were identified. An opportunity to ask questions regarding the treatment plan was provided. All questions were answered. The patient expressed understanding and agreement with the above treatment plan. The patient is aware they should contact our office by phone for worsening of their current condition or the appearance of new urologic symptoms. Compliance is encouraged with any medications and followup testing that is ordered. It is a privilege to participate in the urologic care of your patient. If you have any questions or concerns regarding treatment for the above conditions, or other urologic issues, please do not hesitate to contact me. The office telephone contact is [phone]. Sincerely, Dr Brennon Peck MD, [facility] - Urology Compassionate Specialist Care for the Genitourinary System Coding Level of Care Code Est Pt Level 4 (12344) Complex EM visit Add On G2211 Diagnoses BPH (benign prostatic hyperplasia) N40.0 Incomplete emptying of bladder due to benign prostatic hyperplasia N40.1; R33.9 Staghorn calculus N20.0 CPT Codes Post Residual Void - PVR CPT Code: 71125-Mdox Void Residual by ultrasound ([id number])
--- OUTSIDE RECORDS SUMMARY | 2025-03-06 09:52 | XMS_ITS | Clinical Summary ---
Author Organization [address] Address [address] [place] [address] Phone Care Team Providers Care Director Talent Acquisition Name Role Phone Staci Parks MD Primary Care Provider [phone] Encounters Date Type Department Care Team Description 01/29/2025 Lab Requisition [facility] [address] [place] [phone] Staci Parks MD Essential (primary) hypertension; Sepsis, unspecified organism (CMS/HCC V24, CMS/HCC V28); Type 2 diabetes mellitus without complications (CMS/HCC V24, CMS/HCC V28) 01/27/2025 Lab Requisition [facility] [address] [place] [phone] Staci Parks MD group home (current) use of antibiotics 01/27/2025 Lab Requisition [facility] [address] [place] [phone] Staci Parks MD medical terminologist (current) use of antibiotics 01/22/2025 Lab Requisition [facility] [address] [place] [phone] Staci Parks MD Essential (primary) hypertension; Sepsis, unspecified organism (CMS/HCC V24, CMS/HCC V28); Type 2 diabetes mellitus without complications (CMS/HCC V24, CMS/HCC V28) 01/15/2025 Lab Requisition [facility] Lab [address] [place] [phone] Staci Parks MD Essential (primary) hypertension; Sepsis, unspecified organism ([facility] V24, [facility] V28); Type 2 diabetes mellitus without complications ([facility] V24, [facility] V28) 01/08/2025 Lab Requisition [facility] Lab [address] [place] [phone] Staci Parks MD Essential (primary) hypertension; Sepsis, unspecified organism ([facility] V24, [facility] V28); Type 2 diabetes mellitus without complications ([facility] V24, [facility] V28) 01/07/2025 Lab Requisition [facility] Lab [address] [place] [phone] Staci Parks MD Essential (primary) hypertension; Sepsis, unspecified organism ([facility] V24, [facility] V28) 01/05/2025 Lab Requisition [facility] [address] [place] [phone] Staci Parks MD Essential (primary) hypertension; Hyperlipidemia, unspecified; Vitamin D deficiency, unspecified; Type 2 diabetes mellitus without complications ([facility] V24, [facility] V28); Sepsis, unspecified organism ([facility] V24, [facility] V28); Benign prostatic hyperplasia with lower urinary tract symptoms; 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 ([facility] V24) from Last 3 Months Social History Tobacco Use Types Packs/Day Years Used Date Smoking Tobacco: Never Assessed Sex and Gender Information Value Date Recorded Sex Assigned at Not on file Legal Sex Male 8:44 AM EST Gender Identity Not on file Sexual Orientation Not on file Plan of Treatment Health Maintenance Due Date Last Done Comments Diabetes: Annual Foot Exam 1955 Diabetes: Annual Retina Eye Exam 1955 DTaP,Tdap,and Td Vaccines (1 - Tdap) 1962 Pneumococcal Vaccine: 50+ Years (1 of 2 - PCV) 1962 Zoster Vaccines (1 of 2) 1993 RSV Immunization Adult Patients (1 - 1-dose 75+ series) 2018 Depression Screening 09/10/2022 Falls Risk Assessment 09/10/2022 Social Influencers of Health Screening 09/10/2022 COVID-19 Vaccine ( season) 2024 07/25/2023, 10/24/2022 Diabetes: Annual Urine Albumin-Creatinine Ratio (uACR) 01/05/2025 Influenza Vaccine (Season Ended) 2025 07/15/2022, 07/08/2020 Diabetes: Blood Sugar Control Test (HGBA1C) 07/11/2025 01/09/2025, 01/05/2025 Diabetes: Annual GFR (Glomerular Filtration Rate) 01/27/2026 01/27/2025, 01/23/2025, 01/16/2025, Additional history exists Hypertension/CHF/CAD Annual BMP Blood Test 01/27/2026 01/27/2025, 01/23/2025, 01/16/2025, Additional history exists Cholesterol Screening (Lipid Panel) 01/05/2030 01/05/2025 HIB Vaccines Aged Out No longer eligi [...] age to complete this topic Meningococcal B Vaccine Aged Out No l onger eligible based on patient's age to complete this topic RSV Immunization Patients Under 20 months Aged Out No longer eligible based on patient's age to complete this topic Varicella Vaccines Aged Out No longer eligible based on patient's age to complete this topic Procedures Procedure Name Priority Date/Time Associated Diagnosis Comments CULTURE BLOOD Routine 01/27/2025 5:06 AM EDT group home (current) use of antibiotics COMPREHENSIVE METABOLIC PANEL Routine 01/27/2025 4:58 AM EDT medical terminologist (current) use of antibiotics COMPLETE BLOOD COUNT Routine 01/27/2025 4:58 AM EDT group home (current) use of antibiotics CULTURE BLOOD Routine 01/27/2025 4:58 AM EDT medical terminologist (current) use of antibiotics BASIC METABOLIC PANEL Routine 01/23/2025 5:36 AM EDT Essential (primary) hypertension Sepsis, unspecified organism (CMS/HCC V24, CMS/HCC V28) Type 2 diabetes mellitus without complications (CMS/HCC V24, CMS/HCC V28) COMPLETE BLOOD COUNT Routine 01/23/2025 5:36 AM EDT Essential (primary) hypertension Sepsis, unspecified organism (CMS/HCC V24, CMS/HCC V28) Type 2 diabetes mellitus without complications (CMS/HCC V24, CMS/HCC V28) BASIC METABOLIC PANEL Routine 01/16/2025 6:00 AM EDT Essential (primary) hypertension Sepsis, unspecified organism (CMS/HCC V24, CMS/HCC V28) Type 2 diabetes mellitus without complications (CMS/HCC V24, CMS/HCC V28) COMPLETE BLOOD COUNT Routine 01/16/2025 6:00 AM EDT Essential (primary) hypertension Sepsis, unspecified organism (CMS/HCC V24, CMS/HCC V28) Type 2 diabetes mellitus without complications (CMS/HCC V24, CMS/HCC V28) HEMOGLOBIN A1C Routine 01/09/2025 6:10 AM EDT Essential (primary) hypertension Sepsis, unspecified organism (CMS/HCC) Type 2 diabetes mellitus without complications BASIC METABOLIC PANEL Routine 01/09/2025 6:10 AM EDT Essential (primary) hypertension Sepsis, unspecified organism (CMS/HCC) Type 2 diabetes mellitus without complications COMPLETE BLOOD COUNT Routine 01/09/2025 6:10 AM EDT Essential (primary) hypertension Sepsis, unspecified organism (CMS/HCC) Type 2 diabetes mellitus without complications BASIC METABOLIC PANEL Routine 01/07/2025 10:37 AM EDT Essential (primary) hypertension Sepsis, unspecified organism (CMS/HCC) COMPLETE BLOOD COUNT Routine 01/07/2025 10:37 AM EDT Essential (primary) hypertension Sepsis, unspecified organism (CMS/HCC) FOLATE Routine 01/05/2025 6:22 AM EDT Essential (primary) hypertension Hyperlipidemia, unspecified Vitamin D deficiency, unspecified Type 2 diabetes mellitus without complications Sepsis, unspecified organism (CMS/HCC) Benign prostatic hyperplasia with lower urinary tract symptoms Anemia due to certnxl-8-oxtgzmwyd dehydrogenase (g6pd) deficiency VITAMIN D 25 HYDROXY Routine 01/05/2025 6:22 AM EDT Essential (primary) hypertension Hyperlipidemia, unspecified Vitamin D deficiency, unspecified Type 2 diabetes mellitus without complications Sepsis, unspecified organism (CMS/HCC) Benign prostatic hyperplasia with lower urinary tract symptoms Anemia due to fwxqokd-1-iuqrkzmgy dehydrogenase (g6pd) deficiency VITAMIN B12 Routine 01/05/2025 6:22 AM EDT Essential (primary) hypertension Hyperlipidemia, unspecified Vitamin D deficiency, unspecified Type 2 diabetes mellitus without complications Sepsis, unspecified organism (CMS/HCC) Benign prostatic hyperplasia with lower urinary tract symptoms Anemia due to hjhthkv-8-zlrkajpiz dehydrogenase (g6pd) deficiency HEMOGLOBIN A1C Routine 01/05/2025 6:22 AM EDT Essential (primary) hypertension Hyperlipidemia, unspecified Vitamin D deficiency, unspecified Type 2 diabetes mellitus without complications Sepsis, unspecified organism (CMS/HCC) Benign prostatic hyperplasia with lower urinary tract symptoms Anemia due to equsegl-9-ajpfigxlr dehydrogenase (g6pd) deficiency LIPID PANEL WITH REFLEX TO DIRECT LDL Routine 01/05/2025 6:22 AM EDT Essential (primary) hypertension Hyperlipidemia, unspecified Vitamin D deficiency, unspecified Type 2 diabetes mellitus without complications Sepsis, unspecified organism (CMS/HCC) Benign prostatic hyperplasia with lower urinary tract symptoms Anemia due to popkzrz-9-oeupdrpxq dehydrogenase (g6pd) deficiency COMPREHENSIVE METABOLIC PANEL Routine 01/05/2025 6:22 AM EDT Essential (primary) hypertension Hyperlipidemia, unspecified Vitamin D deficiency, unspecified Type 2 diabetes mellitus without complications Sepsis, unspecified organism (CMS/HCC) Benign prostatic hyperplasia with lower urinary tract symptoms Anemia due to ecsrfif-0-edqrviizl dehydrogenase (g6pd) deficiency COMPLETE BLOOD COUNT Routine 01/05/2025 6:22 AM EDT Essential (primary) hypertension Hyperlipidemia, unspecified Vitamin D deficiency, unspecified Type 2 diabetes mellitus without complications Sepsis, unspecified organism (CMS/HCC) Benign prostatic hyperplasia with lower urinary tract symptoms Anemia due to ndqxdsv-2-mbaonesyh dehydrogenase (g6pd) deficiency from Last 3 Months Results * Culture blood (01/27/2025 5:06 AM EDT) Only the most recent of2 resultswithin the time period is included. Pathologist [facility] Culture, Blood No growth at 5 days 02/01/2025 10:01 AM EDT [facility] Blood 01/27/2025 5:06 AM EDT 01/27/2025 8:17 AM EDT us Staci Parks MD LAB MICROBIOLOGY - GENERAL ORDER ELIZABETH Final Result [facility] [address] [place] [address], [place] [phone] * (ABNORMAL) Complete blood count (01/27/2025 4:58 AM EDT) Only the most recent of6 resultswithin the time period is included. WBC 7.9 4.8 - 10.8 K/mcL LAB HEMETOLOGY METHOD 01/27/2025 9:31 AM EDT [facility] RBC 3.40(L) 4.50 - 5.50 M/mcL LAB HEMETOLOGY METHOD 01/27/2025 9:31 AM EDT [facility] Hemoglobin 9.6(L) 13.5 - 17.5 g/dL LAB HEMETOLOGY METHOD 01/27/2025 9:31 AM EDT [facility] Hematocrit 31.4(L) 42.0 - 54.0 % LAB HEMETOLOGY METHOD 01/27/2025 9:31 AM [facility] MCV 93.5 79.0 - 98.0 FL LAB HEMETOLOGY METHOD 01/27/2025 9:31 AM EDT [facility] MCH 28.6 27.0 - 32.0 pcg LAB HEMETOLOGY METHOD 01/27/2025 9:31 AM EDT [facility] MCHC 30.6(L) 32.0 - 37.0 g/dL LAB HEMETOLOGY METHOD [facility] RDW 13.3 11.0 - 15.0 % LAB HEMETOLOGY METHOD 01/27/2025 9:31 AM [facility] Platelets 338 130 - 400 K/mcL LAB HEMETOLOGY METHOD 01/27/2025 9:31 AM [facility] MPV 9.1 7.0 - 11.0 FL LAB HEMETOLOGY METHOD 01/27/2025 9:31 AM [facility] NRBC 0.0 <1.0 % LAB HEMETOLOGY METHOD 01/27/2025 9:31 AM T [facility] NRBC Absolute 0.00 <0.10 K/mcL LAB HEMETOLOGY METHOD 01/27/2025 9:31 AM [facility] Blood Venous blood specimen / Unknown Venipuncture / Unknown 01/27/2025 4:58 AM EDT 01/27/2025 8:15 AM EDT us Staci Parks MD LAB BLOOD ORDERABLES Final Resul t [facility] [address] [place] [address], [place] [phone] * (ABNORMAL) Comprehensive metabolic panel (01/27/2025 4:58 AM EDT) Only the most recent of2 resultswithin the time period is included. Sodium 136 133 - 145 mmol/L LAB CHEMISTRY METHOD 01/27/2025 9:30 AM [facility] Potassium 4.7 3.5 - 5.5 mmol/L LAB CHEMISTRY METHOD 01/27/2025 9:30 AM [facility] Chloride 104 96 - 110 mmol/L LAB CHEMISTRY METHOD 01/27/2025 9:30 AM [facility] CO2 25 21 - 32 mmol/L LAB CHEMISTRY METHOD 01/27/2025 9:30 AM [facility] Anion Gap 7 3 - 11 LAB CHEMISTRY METHOD 01/27/2025 9:30 AM [facility] Glucose 86 70 - 100 mg/dL LAB CHEMISTRY METHOD 01/27/2025 9:30 AM [facility] BUN 27(H) 5 - 25 mg/dL LAB CHEMISTRY METHOD 01/27/2025 9:30 AM [facility] Creatinine 1.32(H) 0.70 - 1.30 mg/dL LAB CHEMISTRY METHOD 01/27/2025 9:30 AM [facility] eGFR 54(L) >=60 mL/min/1. 73m2 LAB CHEMISTRY METHOD 01/27/2025 9:30 AM [facility] Comment:Calculation based on the??Chronic Kidney Disease Epidemiology Collaboration (CKD-EPI) equation refit??without adjustment for race. BUN/Creatinine Ratio 20.5 LAB CHEMISTRY METHOD 01/27/2025 9:30 AM [facility] Calcium 8.1(L) 8.5 - 10.5 mg/dL LAB CHEMISTRY METHOD 01/27/2025 9:30 AM [facility] AST (SGOT) 13 10 - 42 unit/L LAB CHEMISTRY METHOD 01/27/2025 9:30 AM T [facility] ALT (SGPT) 11 10 - 60 unit/L LAB CHEMISTRY METHOD 01/27/2025 9:30 AM EDT [facility] Alkaline Phosphatase 89 42 - 121 unit/L LAB CHEMISTRY METHOD 01/27/2025 9:30 AM EDT [facility] Total Protein 6.3 6.0 - 8.0 g/dL LAB CHEMISTRY METHOD 01/27/2025 9:30 AM [facility] Albumin 2.1(L) 3.2 - 5.0 g/dL LAB CHEMISTRY METHOD 01/27/2025 9:30 AM [facility] Total Bilirubin 0.3 0.0 - 1.4 mg/dL LAB CHEMISTRY METHOD 01/27/2025 9:30 AM [facility] Blood Venous blood specimen / Unknown Venipuncture / Unknown 01/27/2025 4:58 AM EDT 01/27/2025 8:15 AM EDT us Staci Parks MD LAB BLOOD ORDERABLES Final Resul t [facility] [address] [place] [address], * (ABNORMAL) Basic metabolic panel (01/23/2025 5:36 AM EDT) Only the most recent of4 resultswithin the time period is included. Sodium 139 133 - 145 mmol/L LAB CHEMISTRY METHOD 01/23/2025 10:52 AM [facility] Potassium 4.9 3.5 - 5.5 mmol/L LAB CHEMISTRY METHOD 01/23/2025 10:52 AM [facility] Chloride 106 96 - 110 mmol/L LAB CHEMISTRY METHOD 01/23/2025 10:52 AM T [facility] CO2 26 21 - 32 mmol/L LAB CHEMISTRY METHOD 01/23/2025 10:52 AM [facility] Anion Gap 7 3 - 11 LAB CHEMISTRY METHOD 01/23/2025 10:52 AM [facility] Glucose 80 70 - 100 mg/dL LAB CHEMISTRY METHOD 01/23/2025 10:52 AM [facility] BUN 29(H) 5 - 25 mg/dL LAB CHEMISTRY METHOD 01/23/2025 10:52 AM [facility] Creatinine 1.29 0.70 - 1.30 mg/dL LAB CHEMISTRY METHOD 01/23/2025 10:52 AM [facility] eGFR 56(L) >=60 mL/min/1. 73m2 LAB CHEMISTRY METHOD 01/23/2025 10:52 AM [facility] Comment:Calculation based on the??Chronic Kidney Disease Epidemiology Collaboration (CKD-EPI) equation refit??without adjustment for race. BUN/Creatinine Ratio 22.5 LAB CHEMISTRY METHOD 01/23/2025 10:52 AM [facility] Calcium 8.5 8.5 - 10.5 mg/dL LAB CHEMISTRY METHOD 01/23/2025 10:52 AM [facility] Blood Venous blood specimen / Unknown Venipuncture / Unknown 01/23/2025 5:36 AM EDT 01/23/2025 9:00 AM EDT us Staci Parks MD LAB BLOOD ORDERABLES Final Resul t [facility] [address] [place] [address], * Hemoglobin A1c (01/09/2025 6:10 AM EDT) Only the most recent of2 resultswithin the time period is included. Hemoglobin A1C 5.9 <6.5 % LAB CHEMISTRY METHOD 01/09/2025 2:05 PM EDT [facility] Mean Bld Glu Estim. 123 mg/dL LAB CHEMISTRY METHOD 01/09/2025 2:05 PM [facility] Blood Venous blood specimen / Unknown Venipuncture / Unknown 01/09/2025 6:10 AM EDT 01/09/2025 10:40 AM EDT Staci Parks MD LAB BLOOD ORDERABLES Final Resul t [facility] [address] [place] [address], [place] [phone] * (ABNORMAL) Lipid panel with reflex to direct LDL (01/05/2025 6:22 AM EDT) Cholesterol 74 0 - 200 mg/dL LAB CHEMISTRY METHOD 01/05/2025 12:23 PM [facility] Triglycerides 116 0 - 150 mg/dL LAB CHEMISTRY METHOD 01/05/2025 12:23 PM [facility] HDL 18(L) >=40 mg/dL LAB CHEMISTRY METHOD 01/05/2025 12:23 PM [facility] LDL Calculated 33 0 - 100 mg/dL LAB CHEMISTRY METHOD 01/05/2025 12:23 PM [facility] VLDL Cholesterol Micky 23.2 mg/dL LAB CHEMISTRY METHOD 01/05/2025 12:23 PM [facility] Non HDL Chol. (LDL+VLDL) 56 <145 mg/dL LAB CHEMISTRY METHOD 01/05/2025 12:23 PM [facility] Chol/HDL Ratio 4.1 0.0 - 4.4 LAB CHEMISTRY METHOD 01/05/2025 12:23 PM [facility] Blood Venous blood specimen / Unknown Venipuncture / Unknown 01/05/2025 6:22 AM EDT 01/05/2025 10:48 AM EDT us Staci Parks MD LAB BLOOD ORDERABLES Final Resul t Performing Organization Address City/[facility]/ZIP Co de Phone Number [facility] [address] [place] [address], [place] [phone] * (ABNORMAL) Vitamin D 25 hydroxy (01/05/2025 6:22 AM EDT) [facility] Vit D, 25-Hydroxy 11.8(L) 30.0 - 80.0 ng/mL LAB CHEMISTRY METHOD 01/05/2025 1:03 PM EDT [facility] Blood Venous blood specimen / Unknown Venipuncture / Unknown 01/05/2025 6:22 AM EDT 01/05/2025 10:48 AM EDT us Staci Parks MD LAB BLOOD ORDERABLES Final Resul t Performing Organization Address [facility] de Phone Number [facility] [address] [place] [address], [place] [phone] * Folate (01/05/2025 6:22 AM EDT) [facility] Folate 2.9 2.8 - 17.0 ng/ml LAB CHEMISTRY METHOD 01/05/2025 12:23 PM EDT [facility] Blood Venous blood specimen / Unknown Venipuncture / Unknown 01/05/2025 6:22 AM EDT 01/05/2025 10:48 AM EDT us Staci Parks MD LAB BLOOD ORDERABLES Final Resul t Performing Organization Address City/[facility]/ZIP Co de Phone Number [facility] [address] [place] [address], [place] [phone] * Vitamin B12 (01/05/2025 6:22 AM EDT) Vitamin B-12 540 250 - 900 pcg/mL LAB CHEMISTRY METHOD 01/05/2025 12:23 PM EDT [facility] Blood Venous blood specimen / Unknown Venipuncture / Unknown 01/05/2025 6:22 AM EDT 01/05/2025 10:48 AM EDT Staci Parks MD LAB BLOOD ORDERABLES Final Resul t [facility] [address] [place] [address], [place] [phone] from Last [address] [facility] [employer] Care Teams Director Talent Acquisition Relationship Specialty Start Date End Date Staci Parks MD [address] [place] [id number] [address] [place] [address] PCP - General Geriatric Medicine 01/05/25
== END 2025-03-06 10:30 | disposition home or self-care (01) ==
LOC: HO.HUSH 09:32
PROVIDERS: PCP Internal Medicine; Visit Provider Urology
DX: N40.0 Benign prostatic hyperplasia without lower urinary tract symptoms (principal); N40.1 Benign prostatic hyperplasia with lower urinary tract symptoms; R33.9 Retention of urine, unspecified; N20.0 Calculus of kidney; Z13.9 Encounter for screening, unspecified
CPT/HCPCS: 99214; G2211